=== PATIENT | male | born 1945 | race Caucasian/White ===

== ENCOUNTER 2020-06-07 09:21 | Emergency (ER) | payer MEDICARE, SELFPAY ==
--- NOTE | 2020-06-07 09:31 | ED.GENADULT ---
HPI - General Adult General Chief complaint: Ear Stated complaint: ear pain Time Seen by Provider: 06/07/20 09:36 Source: patient Mode of arrival: ambulatory Limitations: no limitations History of Present Illness HPI narrative: 75-year-old male patient [facility] with complaints of right ear pain. Patient states that this past he had some dental work done and states that there was an infection to his gums and teeth and therefore he was put on amoxicillin by the dentist. Patient states for the last couple of days he has had increased pain and irritation to the right ear. Denies any decrease in hearing. Patient states he has had ear infections to the area before. Denies any fevers, body aches or chills. Denies any sore throat, chest pain, shortness of breath or coughing. Related Data Home Medications Medication Instructions Recorded Confirmed lancets 28 gauge #25 each 11/20/19 tenofovir disoproxil fumarate 300 300 mg PO DAILY 11/20/19 06/07/20 mg tablet bisacodyl 5 mg tablet,delayed 5 mg PO ONCE PRN 11/27/19 06/07/20 release carbamazepine 200 mg tablet 200 mg PO TID tablet 11/27/19 06/07/20 ibuprofen 200 mg tablet 200 mg PO Q6H PRN 11/27/19 06/07/20 metformin 500 mg tablet,extended 1,000 mg PO BID tablet 11/27/19 06/07/20 release 24 hr multivitamin 1 tablet PO DAILY 11/27/19 06/07/20 amoxicillin 875 mg PO BID 06/07/20 06/07/20 Allergies Allergy/AdvReac Type Severity Reaction Status Date / Time No Known Allergies Allergy Unverified 06/07/20 09:31 Review of Systems Review of Systems: Narrative: CONSTITUTIONAL: Denies fever, chills, or sweats. EYES: Denies visual changes, redness, or discharge. ENT: Denies rhinorrhea, congestion, sore throat, positive right otalgia. CARDIOVASCULAR: Denies chest pain, palpitations, or edema. RESPIRATORY: Denies cough or dyspnea. GASTROINTESTINAL: Denies abdominal pain, nausea, vomiting, or diarrhea. GENITOURINARY: Denies dysuria or hematuria. SKIN: Denies rash or itching. MUSCULOSKELETAL: Denies back pain, joint pain, or myalgia. NEUROLOGIC: Denies headache, numbness, or weakness. PSYCHIATRIC: Denies anxiety or depression. [facility] Past Medical History Medical History BPH w/o urinary obs/LUTS Chronic constipation Chronic hepatitis B Cirrhosis of liver due to hepatitis B Dyslipidemia Edema of both legs Essential (primary) hypertension History of gynecomastia benign 03/2007 History of kidney stones Localized swelling, mass and lump, upper limb, bilateral Lumbar spondylosis Multiple lipomas MYRANDA (obstructive sleep apnea) Thrombocytopenia Trigeminal neuralgia of left side of face Type 2 diabetes mellitus without complication, without long-term current use of insulin Surgical History Surgical History History of back surgery 1995 History of hernia repair 1950 History of lumbosacral spine surgery 03/05/2018 History of transjugular intrahepatic portosystemic shunt 2014 Hx of transurethral resection of prostate 2019 Family History Family History Mother Hypertension Sibling Family history of malignant neoplasm of esophagus Other Family history of cardiovascular disease Family history of kidney disease Social History Social History Smoking status: Never smoker Second hand tobacco smoke exposure: No Additional smoking assessment comments: cigarettes smoke exposure as a child from father Alcohol intake: current Substance use: never Substance use type: does not use Comments At the time of my signature I agree with nursing past medical history, surgical, social, and family history. There is no relevant family history pertinent to the presenting complaint. Exam Narrative: Exam Narrative: GENERAL: Well-
[2020-06-07 09:34] VITALS: BP 125/71; PULSE 58; RESP 18; TEMP 36.2; O2SAT 99
== END 2020-06-07 09:55 | disposition home or self-care (01) ==
PROVIDERS: Emergency Provider Nurse Practitioner Family; PCP Family Medicine
DX: B36.9 Superficial mycosis, unspecified (principal); H62.41 Otitis externa in other diseases classified elsewhere, right ear; N40.0 Benign prostatic hyperplasia without lower urinary tract symptoms; E78.5 Hyperlipidemia, unspecified; I10 Essential (primary) hypertension; G47.33 Obstructive sleep apnea (adult) (pediatric); D69.6 Thrombocytopenia, unspecified; G50.0 Trigeminal neuralgia; E11.9 Type 2 diabetes mellitus without complications; K74.60 Unspecified cirrhosis of liver
CPT/HCPCS: 99213; G0463

== ENCOUNTER → 2020-10-20 10:24 | Outpatient (CLI) | payer MEDICARE, SELFPAY ==
--- NOTE | ~2020-10-20 | MR_ITS ---
EXAMINATION: MR humerus RT wo con DATE: 10/20/2020 11:39 INDICATION: Right upper arm pain. TECHNIQUE: Magnetic resonance imaging (MRI) of the right humerus was performed without intravenous co ntrast. Sequences included axial and sagittal T1-weighted FSE and STIR FSE and coronal STIR FSE. COMPARISON: None. FINDINGS: Bone alignment is normal. There is subcortical bone marrow edema-like signal intensity in d iaphysis of right humerus. There is mild osteoarthritis of glenohumeral joint and severe osteoarthrit is of the acromioclavicular joint. The rotator cuff is not well evaluated. There is a skin marker sup erficial to the biceps muscle. There is mild edema in the biceps muscle at the proximal myotendinous junction, consistent with strain. The proximal portion of the proximal biceps tendon and distal porti on of the distal biceps tendon are not included. IMPRESSION: 1. Mild right biceps muscle strain (grade 1). 2. Subcortical bone marrow edema-like signal intensity in right humeral diaphysis, consistent with st ress reaction. Reviewed, dictated and finalized at location A. HAND IMPRESSION: 1. Mild right biceps muscle strain (grade 1). 2. Subcortical bone marrow edema-like signal intensity in right humeral diaphys is, consistent with stress reaction.
== END ==
PROVIDERS: PCP Family Medicine; Visit Provider Nurse Practitioner
DX: S46.211A Strain of muscle, fascia and tendon of other parts of biceps, right arm, initial encounter (principal); X58.XXXA Exposure to other specified factors, initial encounter
CPT/HCPCS: 73218

== ENCOUNTER 2021-05-27 09:16 | Outpatient (CLI) | payer MEDICARE, SELFPAY ==
--- NOTE | ~2021-05-27 | CT_ITS ---
EXAMINATION: CT abdomen pelvis wo/w con DATE: 05/27/2021 09:53 INDICATION: Gross hematuria TECHNIQUE: Computed tomography (CT) of the abdomen and pelvis was performed without and subsequently with 130 cc Omnipaque 350 intravenous contrast. Automated exposure control and iterative reconstructi on technique were employed. Exam dose: 917.56 mGy-cm total exam DLP. COMPARISON: 03/09/2017 CT abdomen and pelvis without and subsequently with IV contrast material FINDINGS: There is minimal discoid atelectasis or scarring at the lung bases. Calcified left lower lo be pulmonary granuloma. Normal heart size. No pericardial or pleural effusion. TIPS catheter is noted. Surface nodularity of the liver consistent with cirrhosis. Occasional hepatic cysts. No bile duct or pancreatic duct dilatation. No pancreatic mass lesion or calcification. Spleen is upper limits of normal at 12.9 cm maximal vertical length. Normal morphology of the adrenal glands. There are couple of left renal cysts, the larger measuring 7.5 mm. No right renal mass lesion. A couple of pinpoint nonobstructing right renal calculi are noted. 3.5 mm lower pole nonobstructing left renal calculus. No ureteral calculus or hydroureteronephrosis. There is prominent prostate enlargement impressing the base and urinary bladder, and minimal prostate calcification. There is moderate diffuse bladder wall thickening which may be due to bladder outlet obstruction. There is probable transurethral resection of the prostate. There is calcification of the abdominal aorta but no aneurysm. No intraperitoneal or retroperitoneal or pelvic mass lesion or adenopathy or ascites. There are nondilated fluid containing small bowel segments. There is thickening of the wall of the di stal ileum which might represent infectious or inflammatory enteritis. No bowel obstruction, pneumato sis or intraperitoneal free air. Diffuse osteopenia. Severe degenerative disc disease at L2-3 IMPRESSION: Prostate enlargement Minimal nonobstructive right nephrolithiasis, 3.5 mm lower pole left renal nonobstructing calculus No ureteral calculus or hydroureteronephrosis Cirrhosis, TIPS catheter, borderline splenomegaly Occasional hepatic cysts Small left renal cyst Reviewed, dictated and finalized at [facility]. Reviewed, dictated and finalized at location A. IMPRESSION: Prostate enlargement Minimal nonobstructive right nephrolithiasis, 3.5 mm lower pole left renal nono bstructing calculus No ureteral calculus or hydroureteronephrosis Cirrhosis, TIPS catheter, borderline splenomegaly Occasional hepatic cysts Small left renal cyst
--- NOTE | ~2021-05-27 | XR_ITS ---
EXAMINATION: XR abdomen/kub 1V INDICATION: Gross hematuria TECHNIQUE: Supine views of the abdomen were obtained on 2 radiographs. COMPARISON: CT from today and radiographs dated 02/08/2017 FINDINGS: There is a 4 mm stone of the left kidney lower pole. No stones project in the right kidney or in the expected location of the ureters or urinary bladder. There are phleboliths of the pelvis. A TIPS there is lumbar dextroscoliosis. Is noted. Cholecystectomy clips are present in the right upper quadrant. There is a bone island of the right iliac wing. Moderate hip osteoarthritis is noted. IMPRESSION: 1. Left nephrolithiasis. Reviewed, dictated and finalized at location B. IMPRESSION: 1. Left nephrolithiasis.
[2021-05-27 09:38] LABS: Estimated Glomerular Filt Rate > 60
== END 2021-05-27 09:17 | disposition home or self-care (01) ==
PROVIDERS: PCP Family Medicine; Visit Provider Urology
DX: R31.0 Gross hematuria (principal); N20.0 Calculus of kidney; N40.0 Benign prostatic hyperplasia without lower urinary tract symptoms; N28.1 Cyst of kidney, acquired; K76.89 Other specified diseases of liver
CPT/HCPCS: 74018; 74178; Q9967

== ENCOUNTER 2022-01-28 19:08 | Emergency (ER) | payer MEDICARE, SELFPAY ==
[2022-01-28] VITALS (8 sets, daily range): BP systolic 120–139; BP diastolic 57–66; PULSE 76–86; RESP 16–21; TEMP 38.8; O2SAT 97–100
--- NOTE | ~2022-01-28 | CT_ITS ---
EXAMINATION: CTA brain DATE: 01/28/2022 21:41 INDICATION: Dizziness. TECHNIQUE: Computed tomographic angiography (CTA) of the head was performed without and with 100 mL O mnipaque-350 intravenous contrast. Automated exposure control and iterative reconstruction technique were employed. The dose-length product was 1812.31 mGy-cm. Maximum intensity projection 3D reconstru ctions were created. Volume-rendered 3D reconstructions of the intracranial arteries were created by the technologist on a separate workstation. COMPARISON: Head CT 05/22/2015 FINDINGS: There is no intracranial hemorrhage, acute infarction, or abnormal intracranial mass lesion . There is a developmental venous anomaly in left frontal lobe. There are scattered areas of low atte nuation in the cerebral white matter, which is within normal limits for the patient's age. The ventri cles are normal in size. There is mild mucosal thickening in the paranasal sinuses. The orbits are no rmal. The mastoid air cells are normal. The vertebral arteries are codominant. There is no significan t stenosis of basilar artery or the posterior cerebral arteries. There is no significant stenosis of the intracranial internal carotid arteries or anterior or middle cerebral arteries. Anterior communic ating artery is normal. The posterior communicating arteries are normal. There is no aneurysm. IMPRESSION: 1. Normal aging brain. 2. No aneurysm or significant intracranial arterial stenosis. Reviewed, dictated and finalized at location A.
--- NOTE | 2022-01-28 19:24 | ECG_ITS ---
Measurements Intervals [place] Rate: 74 P: 49 MN: 205 QRS: -5 QRSD: 98 T: 41 QT: 354 QTc: 395 Interpretive Statements SINUS RHYTHM INFERIOR MYOCARDIAL INFARCTION , PROBABLY OLD [40+ ms Q WAVE AND/OR ST/T ABNORMALITY IN II/aVF] ABNORMAL ECG COMPARED TO ECG 03/25/2019 16:08:08 SINUS RHYTHM NOW PRESENT MYOCARDIAL INFARCT FINDING NOW PRESENT Electronically Signed On 01-29-2022 11:43:50 CDT by Christian Burgos M.D.
[2022-01-28 19:25] LABS: Glucose Point of Care 192 mg/dl (65-105)
--- NOTE | 2022-01-28 19:59 | ED.DIZZY ---
HPI - Dizziness General Chief Complaint: Dizziness Stated Complaint: dizzy spells, left ear pain, chills Time Seen by Provider: 01/28/22 19:40 Source: patient and family Mode of arrival: ambulatory Limitations: no limitations History of Present Illness HPI Narrative: 77-year-old male presents to emergency room accompanied by his . Patient comes in secondary to dizziness. States it began yesterday. He states is not necessarily a spinning type sensation but is just having trouble with his balance. He states he even had trouble putting his legs into the pants legs and getting his pants off. He does have a history of trigeminal neuralgia and underwent radiation treatment for that. He takes Neurontin. He states he has had some issues with his ears in the past but nothing recently. He denies any focal weakness to his arms or legs. No visual problems are noted. He had no associated nausea vomiting. Denies any head injuries. He states when he walks he feels like he is falling and has to hold onto something in order to ambulate. Onset of this was yesterday. Related Data Home Medications Medication Instructions Recorded Confirmed lancets 28 gauge #25 each 11/20/19 01/10/22 tenofovir disoproxil fumarate 300 300 mg PO DAILY 11/20/19 01/10/22 mg tablet multivitamin 1 tablet PO DAILY 11/27/19 01/10/22 polyethylene glycol 3350 17 17 g PO DAILY PRN 05/25/21 01/10/22 gram/dose oral powder gabapentin 400 mg capsule 400 mg PO QID cap 01/10/22 01/10/22 Allergies Allergy/AdvReac Type Severity Reaction Status Date / Time No Known Allergies Allergy Verified 01/28/22 19:17 Review of Systems Review of Systems: CONSTITUTIONAL: Denies fever, chills, or sweats. EYES: Denies visual changes, redness, or discharge. ENT: Denies rhinorrhea, congestion, sore throat, or otalgia. CARDIOVASCULAR: Denies chest pain, palpitations, or edema. RESPIRATORY: Denies cough or dyspnea. GASTROINTESTINAL: Denies abdominal pain, nausea, vomiting, or diarrhea. GENITOURINARY: Denies dysuria or hematuria. SKIN: Denies rash or itching. MUSCULOSKELETAL: Denies back pain, joint pain, or myalgia. NEUROLOGIC: Denies headache, numbness, or weakness. Having dizziness and difficulty with coordination PSYCHIATRIC: Denies anxiety or depression. [facility] Past Medical History Medical History BPH w/o urinary obs/LUTS Chronic constipation Chronic hepatitis B Cirrhosis of liver due to hepatitis B Dyslipidemia Edema of both legs History of gynecomastia benign 03/2007 History of kidney stones Localized swelling, mass and lump, upper limb, bilateral Lumbar spondylosis Multiple lipomas MYRANDA (obstructive sleep apnea) Thrombocytopenia Trigeminal neuralgia of left side of face s/p stereo tactic radiation surgery Type 2 diabetes mellitus without complication, without long-term current use of insulin Surgical History Surgical History History of back surgery 1995 History of hernia repair 1950 History of lumbosacral spine surgery 03/05/2018 History of transjugular intrahepatic portosystemic shunt 2015 Hx of transurethral resection of prostate 2019 Family History Family History Mother Hypertension Sibling Family history of malignant neoplasm of esophagus Other Family history of cardiovascular disease Family history of kidney disease Social History Social History Second hand tobacco smoke exposure: No Additional smoking assessment comments: cigarettes smoke exposure as a child from father Alcohol intake: current Alcohol use details: consumes 2 glasses of wine twice a week Substance use: never Substance use type: does not use Exam Narrative: APPEARANCE: Well appearing, no pain or distress, well-nourished. Head norm
[2022-01-28 20:28] LABS: Hematocrit 38.8 % (42.0-52.0); Immature Platelet Fraction Pct 2.8 % (0.9-11.2); Mean Corpuscular HGB Conc 33.5 g/dl (32-36); Mean Corpuscular Hemoglobin 30.7 pg (26-34); Mean Corpuscular Volume 91.7 fl (80-100); Mean Platelet Volume 10.1 fl (7.4-10.4); Platelet Count Result 112 k/mm3 (150-375); Red Blood Count 4.23 M/mm3 (4.6-6.20); Red Cell Distribution Width 13.6 % (11.5-14.5); White Blood Count 8.9 K/mm3 (4.5-10.0)
[2022-01-28 20:35] LABS: Alanine Aminotransferase 25 U/L (4-50); Albumin Level 3.6 g/dL (3.5-5.1); Alkaline Phosphatase 87 U/L (38-126); Anion Gap 6 mmol/L (8-16); Aspartate Amino Transferase 46 U/L (17-59); Bilirubin,Total 1.3 mg/dL (0.2-1.3); Blood Urea Nitrogen 16 mg/dL (9-20); Calcium 8.8 mg/dL (8.4-10.2); Carbon Dioxide 25 mmol/L (22-30); Chloride 103 mmol/L (98-107); Estimated CRCL calculation 64 ml/min; Estimated Glomerular Filt Rate > 60; Glucose 167 mg/dL (65-110); Potassium 4.3 mmol/L (3.4-5.0); Sodium 134 mmol/L (137-145)
[2022-01-28 20:36] LABS: INR 1.2
[2022-01-28 20:47] LABS: Troponin I < 0.012 ng/mL (0.000-0.034)
[2022-01-28 20:58] LABS: Band Neutrophils Percent 8 % (0-6); Lymphocytes Absolute Manual 0.26 K/mm3 (1.1-4.5); Monocytes Absolute Manual 0.08 K/mm3 (0.1-0.90); Monocytes Percent Manual 1 % (3-9); Neutrophils Absolute Manual 8.54 K/mm3 (1.3-6.7); Neutrophils Percent Manual 88 % (46-73); Total Cells Counted 100
[2022-01-28 20:59] LABS: Platelet Estimate Decreased (Adequate)
[2022-01-28] MEDS: MECLIZINE HCL 25 MG TABLET PO (23:01)
== END 2022-01-28 23:30 | disposition home or self-care (01) ==
PROVIDERS: Emergency Provider Emergency Medicine; PCP Family Medicine
DX: R42 Dizziness and giddiness (principal); N40.0 Benign prostatic hyperplasia without lower urinary tract symptoms; B18.1 Chronic viral hepatitis B without delta-agent; K74.60 Unspecified cirrhosis of liver; E78.5 Hyperlipidemia, unspecified; G47.33 Obstructive sleep apnea (adult) (pediatric); E11.9 Type 2 diabetes mellitus without complications; Z87.442 Personal history of urinary calculi; R94.31 Abnormal electrocardiogram [ECG] [EKG]; Z79.84 Long term (current) use of oral hypoglycemic drugs
CPT/HCPCS: 36415; 70496; 80053; 82948; 84484; 85025; 85055; 85610; 85730; 93005; 99283; A9270; Q9967

== ENCOUNTER 2022-07-18 10:32 | Outpatient (CLI) | payer MEDICARE, SELFPAY | END 2022-07-18 10:33 | disposition home or self-care (01) | PROVIDERS: PCP Family Medicine; Visit Provider Family Medicine | DX: E11.9 Type 2 diabetes mellitus without complications (principal); E78.5 Hyperlipidemia, unspecified; Z79.899 Other long term (current) drug therapy; E53.8 Deficiency of other specified B group vitamins; Z12.5 Encounter for screening for malignant neoplasm of prostate; G47.33 Obstructive sleep apnea (adult) (pediatric); G50.0 Trigeminal neuralgia; Z13.29 Encounter for screening for other suspected endocrine disorder; E55.9 Vitamin D deficiency, unspecified; B18.1 Chronic viral hepatitis B without delta-agent; K74.60 Unspecified cirrhosis of liver; B19.10 Unspecified viral hepatitis B without hepatic coma | CPT/HCPCS: 99199; 36415 ==

== ENCOUNTER 2022-09-06 01:23 | Day surgery (SDC) | payer MEDICARE, SELFPAY ==
[2022-08-22 11:57] VITALS: BMI 25.8
[2022-09-06 08:18] VITALS: BP 133/70; PULSE 87; RESP 20; TEMP 36.4; O2SAT 96; BMI 26.5
[2022-09-06 08:33] LABS: Glucose Point of Care 164 mg/dl (65-105)
[2022-09-06] MEDS: LACTATED RINGERS 1,000 ML 150 ML IV CONT (08:33)
--- NOTE | 2022-09-06 09:05 | WPDANESEPPF ---
Anes - Initial Pre Proc Eval Procedure: Operation Date: 09/06/22 09:30 Proposed Procedures p Screening Colonoscopy - Kane Barrera MD Date/Time: 09/06/22 09:05 Surgeon: Kane Barrera MD Pre Op Diagnosis: Hx of Colon Polyps Patient Data Age: 77 Gender: M Height: 1.8 m Weight: 86.3 kg Last Vital Signs Temp 97.5 F L 09/06/22 08:18 Pulse 87 09/06/22 08:18 Resp 20 09/06/22 08:18 BP 133/70 09/06/22 08:18 Pulse Ox 96 09/06/22 08:18 O2 Del Method Room Air 09/06/22 08:18 Allergies Allergy/AdvReac Type Severity Reaction Status Date / Time No Known Allergies Allergy Verified 09/06/22 08:14 Home Medications Medication Instructions Recorded Confirmed Type lancets 28 gauge #25 ea 11/20/19 08/17/22 History tenofovir disoproxil fumarate 300 300 mg PO DAILY 11/20/19 08/22/22 History mg tablet (Viread) multivitamin 1 tablet PO DAILY 11/27/19 08/22/22 History polyethylene glycol 3350 17 17 g PO DAILY PRN Constipation 05/25/21 08/22/22 History gram/dose oral powder (Miralax) blood sugar diagnostic #100 ea 12/20/21 08/17/22 Rx glipizide 2.5 mg tablet, extended 2.5 mg PO DAILY #90 tabs 12/20/21 08/22/22 Rx release 24 hr gabapentin 400 mg capsule 400 mg PO QID 01/10/22 08/22/22 History metformin 500 mg tablet,extended 1,000 mg PO BID #360 tabs 01/14/22 08/22/22 Rx release 24 hr atorvastatin 20 mg tablet 20 mg PO QHS #90 tabs 06/08/22 08/22/22 Rx baclofen 10 mg tablet 10 mg PO BID 08/17/22 08/22/22 History lancets 33 gauge (OneTouch Delica See Rx Instructions miscellaneous 08/17/22 08/22/22 Rx Lancets) DAILY #100 ea mupirocin 2 % topical ointment 1 applic topical BID #22 grams 11/02/22 11/07/22 Rx oxcarbazepine 150 mg tablet 150 mg PO BID 08/17/22 08/22/22 History Laboratory Tests 09/06/22 08:30 POC Capillary Glucose 164 mg/dl H mg/dl (65-105) Patient hx anesthesia problems: none Family hx anesthesia problems: none Results Review: All pre-operative results and documents have been reviewed as part of the pre-operative evaluation. [facility] Past Medical History Medical History BPH w/o urinary obs/LUTS Chronic constipation Chronic hepatitis B Cirrhosis of liver due to hepatitis B Dyslipidemia Edema of both legs History of colon polyps History of gynecomastia benign 03/2007 History of kidney stones Localized swelling, mass and lump, upper limb, bilateral Lumbar spondylosis Multiple lipomas MYRANDA (obstructive sleep apnea) Thrombocytopenia Trigeminal neuralgia of left side of face s/p stereo tactic radiation surgery Type 2 diabetes mellitus without complication, without long-term current use of insulin Surgical History Surgical History History of back surgery 1995 History of hernia repair 1950 History of lumbosacral spine surgery 03/05/2018 History of transjugular intrahepatic portosystemic shunt 2015 Hx of transurethral resection of prostate 2019 Family History Family History Mother Hypertension Sibling Family history of malignant neoplasm of esophagus Other Family history of cardiovascular disease Family history of kidney disease Social History Social History Smoking status: Never smoker Second hand tobacco smoke exposure: No Additional smoking assessment comments: cigarettes smoke exposure as a child from father Alcohol intake: current Drinks per week: 3 Alcohol use details: WINE Substance use: never Substance use type: does not use Lack of Transportation: No Lack of Food: Never True Current Housing: I Have Housing Concerned About Future Housing: No Difficulty Paying Gas/Electric Bills: No Difficulty Paying for Meds: No Currently Unemployed: No Educati
--- NOTE | 2022-09-06 09:21 | PM.HPGS ---
History of Present Illness History of Present Illness Consent: Risks, benefits, and alternatives have been discussed and questions answered. Patient agrees to proceed with procedure. Chief complaint: Hx of Colon Polyps Narrative: Lei Rayo is a 77 year old male with history of polyps with last colonscopy 5 years ago Review of Systems Constitutional: Constitutional: Denies headache(s) and Denies weakness Eyes: Eyes: Denies blurry vision ENT: Reports Normal hearing present, Denies headache(s) and Denies neck pain Cardiovascular: Cardiovascular: Denies chest pain and Denies dyspnea Respiratory: Respiratory: Denies dyspnea Gastrointestinal: Gastrointestinal: Reports no additional gastrointestinal complaints Genitourinary: Genitourinary: Denies dysuria Musculoskeletal: Musculoskeletal: Denies neck pain Integumentary/Breasts: Skin/Breast: Denies dry skin Neurologic: Reports Normal hearing present, Denies headache(s) and Denies weakness Psychiatric: Psychiatric: Denies anxiety Endocrine: Endocrine: Denies change in body appearance Hematologic/Lymphatic: Hematologic/Lymphatic: Denies easy bleeding Allergic/Immunologic: Allergic/Immunologic: Denies urticaria PMFSH Past Medical History Medical History (Updated 09/06/22 @ 09:21 by Kane Barrera MD) BPH w/o urinary obs/LUTS Chronic constipation Chronic hepatitis B Cirrhosis of liver due to hepatitis B Dyslipidemia Edema of both legs History of colon polyps History of gynecomastia benign 03/2007 History of kidney stones Localized swelling, mass and lump, upper limb, bilateral Lumbar spondylosis Multiple lipomas MYRANDA (obstructive sleep apnea) Thrombocytopenia Trigeminal neuralgia of left side of face s/p stereo tactic radiation surgery Type 2 diabetes mellitus without complication, without long-term current use of insulin Surgical History Surgical History History of back surgery 1995 History of hernia repair 1950 History of lumbosacral spine surgery 03/05/2018 History of transjugular intrahepatic portosystemic shunt 2014 Hx of transurethral resection of prostate 2019 Family History Family History Mother Hypertension Sibling Family history of malignant neoplasm of esophagus Other Family history of cardiovascular disease Family history of kidney disease Social History Social History Smoking status: Never smoker Second hand tobacco smoke exposure: No Additional smoking assessment comments: cigarettes smoke exposure as a child from father Alcohol intake: current Drinks per week: 3 Alcohol use details: WINE Substance use: never Substance use type: does not use Lack of Transportation: No Lack of Food: Never True Current Housing: I Have Housing Concerned About Future Housing: No Difficulty Paying Gas/Electric Bills: No Difficulty Paying for Meds: No Currently Unemployed: No Education: Bachelor's Degree Difficulty w/ Childcare or Family Care: No Living arrangements: with family Spiritual care concerns: No Meds Home Medications and Allergies Home Medications Medication Instructions Recorded Confirmed Type lancets 28 gauge #25 ea 11/20/19 08/17/22 History tenofovir disoproxil fumarate 300 300 mg PO DAILY 11/20/19 08/22/22 History mg tablet (Viread) multivitamin 1 tablet PO DAILY 11/27/19 08/22/22 History polyethylene glycol 3350 17 17 g PO DAILY PRN Constipation 05/25/21 08/22/22 History gram/dose oral powder (Miralax) blood sugar diagnostic #100 ea 12/20/21 08/17/22 Rx glipizide 2.5 mg tablet, extended 2.5 mg PO DAILY #90 tabs 12/20/21 08/22/22 Rx release 24 hr gabapentin 400 mg capsule 400 mg PO QID 01/10/22 08/22/22 History metformin 500 mg tablet,extended 1,000 mg PO BID #360 tabs 01/14/22 11
[2022-09-06 09:52] VITALS: BP 122/71; PULSE 77; RESP 18; O2SAT 100
[2022-09-06 10:02] VITALS: BP 126/79; PULSE 64; RESP 15; O2SAT 100
[2022-09-06 10:12] VITALS: BP 127/75; PULSE 72; RESP 16; O2SAT 100
== END 2022-09-06 10:18 | disposition home or self-care (01) ==
PROVIDERS: PCP Family Medicine; Visit Provider Internal Medicine Gastroenterology
PROC: 0DJD8ZZ Inspection of Lower Intestinal Tract, Via Natural or Artificial Opening Endoscopic (ICD-10-PCS; CPT 45378; principal; 2022-09-06 09:30)
DX: Z12.11 Encounter for screening for malignant neoplasm of colon (principal); D12.2 Benign neoplasm of ascending colon; K51.40 Inflammatory polyps of colon without complications; K64.8 Other hemorrhoids; K74.60 Unspecified cirrhosis of liver; B18.1 Chronic viral hepatitis B without delta-agent; E78.5 Hyperlipidemia, unspecified; G47.33 Obstructive sleep apnea (adult) (pediatric); E11.9 Type 2 diabetes mellitus without complications; K59.09 Other constipation; N40.0 Benign prostatic hyperplasia without lower urinary tract symptoms; M47.816 Spondylosis without myelopathy or radiculopathy, lumbar region; Z79.84 Long term (current) use of oral hypoglycemic drugs
CPT/HCPCS: 45385; 82948; 88305; J2704; J7120

== ENCOUNTER 2023-01-16 09:49 | Outpatient (CLI) | payer MEDICARE, SELFPAY ==
[2023-01-16 12:41] LABS: Alanine Aminotransferase 27 U/L (6-50); Albumin Level 3.4 g/dL (3.5-5.1); Alkaline Phosphatase 90 U/L (38-126); Anion Gap 4 mmol/L (8-16); Aspartate Amino Transferase 36 U/L (17-59); Bilirubin,Total 0.8 mg/dL (0.2-1.3); Blood Urea Nitrogen 13 mg/dL (9-20); Calcium 8.7 mg/dL (8.4-10.2); Carbon Dioxide 30 mmol/L (22-30); Chloride 103 mmol/L (98-107); Estimated Glomerular Filt Rate > 60; Glucose 277 mg/dL (65-110); Potassium 4.3 mmol/L (3.4-5.0); Sodium 137 mmol/L (137-145)
[2023-01-16 13:50] LABS: Hemoglobin A1C 7.9 % (<5.7)
[2023-01-16 17:27] LABS: Eosinophils Absolute Auto 0.1 K/mm3 (0-0.3); Eosinophils Percent Auto 2.8 % (0-4.4); Hematocrit 40.8 % (42.0-52.0); Hemoglobin 13.3 g/dL (14.0-18.0); Immature Granulocyte Absolute 0.01 K/mm3 (0.00-0.031); Immature Granulocyte Percent A 0.3 % (0-0.5); Lymphocytes Absolute Auto 0.93 K/mm3 (0.9-3.2); Lymphocytes Percent Auto 32.5 % (18.3-44.2); Mean Corpuscular HGB Conc 32.6 g/dl (32-36); Mean Corpuscular Hemoglobin 30.9 pg (26-34); Mean Corpuscular Volume 94.9 fl (80-100); Mean Platelet Volume 10.6 fl (7.4-10.4); Monocytes Absolute Auto 0.3 K/mm3 (0.1-0.6); Monocytes Percent Auto 10.5 % (2.6-8.5); Neutrophils Absolute Auto 1.5 K/mm3 (1.3-6.7); Neutrophils Percent Auto 52.9 % (45.5-73.1); Platelet Count Result 132 k/mm3 (150-375); White Blood Count 2.9 K/mm3 (4.5-10.0)
== END 2023-01-16 09:50 | disposition home or self-care (01) ==
LOC: ANHGOSHLAB 09:51
PROVIDERS: PCP Family Medicine; Visit Provider Family Medicine
DX: E11.9 Type 2 diabetes mellitus without complications (principal); E78.5 Hyperlipidemia, unspecified; G50.0 Trigeminal neuralgia; B18.1 Chronic viral hepatitis B without delta-agent; D72.819 Decreased white blood cell count, unspecified
CPT/HCPCS: 36415; 80053; 83036; 85025

== ENCOUNTER 2023-07-26 10:50 | Outpatient (CLI) | payer MEDICARE, SELFPAY ==
[2023-07-26 18:39] LABS: Basophils Percent Auto 0.8 % (0.2-1.2); Eosinophils Absolute Auto 0.2 K/mm3 (0-0.3); Eosinophils Percent Auto 4.6 % (0-4.4); Hematocrit 41.3 % (42.0-52.0); Hemoglobin 13.5 g/dL (14.0-18.0); Immature Granulocyte Absolute 0.01 K/mm3 (0.00-0.031); Immature Granulocyte Percent A 0.3 % (0-0.5); Lymphocytes Absolute Auto 0.76 K/mm3 (0.9-3.2); Lymphocytes Percent Auto 20.8 % (18.3-44.2); Mean Corpuscular HGB Conc 32.7 g/dl (32-36); Mean Corpuscular Hemoglobin 30.5 pg (26-34); Mean Corpuscular Volume 93.4 fl (80-100); Mean Platelet Volume 10.6 fl (7.4-10.4); Monocytes Absolute Auto 0.4 K/mm3 (0.1-0.6); Monocytes Percent Auto 10.9 % (2.6-8.5); Neutrophils Absolute Auto 2.3 K/mm3 (1.3-6.7); Neutrophils Percent Auto 62.6 % (45.5-73.1); Platelet Count Result 142 k/mm3 (150-375); Red Blood Count 4.42 M/mm3 (4.6-6.20); Red Cell Distribution Width 13.4 % (11.5-14.5); White Blood Count 3.7 K/mm3 (4.5-10.0)
[2023-07-26 19:15] LABS: Alanine Aminotransferase 24 U/L (6-50); Albumin Level 3.8 g/dL (3.5-5.1); Alkaline Phosphatase 100 U/L (38-126); Anion Gap 4 mmol/L (8-16); Aspartate Amino Transferase 43 U/L (17-59); Bilirubin,Total 1.1 mg/dL (0.2-1.3); Blood Urea Nitrogen 14 mg/dL (9-20); Calcium 9.2 mg/dL (8.4-10.2); Carbon Dioxide 30 mmol/L (22-30); Chloride 103 mmol/L (98-107); Cholesterol 146 mg/dL (0-200); Estimated Glomerular Filt Rate > 60; Glucose 148 mg/dL (65-110); HDL Direct 46 mg/dL; Potassium 4.4 mmol/L (3.4-5.0); Sodium 137 mmol/L (137-145); Triglycerides 80 mg/dL (<150)
[2023-07-26 19:26] LABS: LDL Cholesterol Direct 74 mg/dL
[2023-07-26 19:45] LABS: Prostate Specific Antigen 1.1 ng/mL (< OR = 4.0)
[2023-07-26 20:14] LABS: Vitamin D 25 Hydroxy 60.1 ng/mL
[2023-07-26 20:38] LABS: MALB Creatinine Ratio 7.8 mg/g (0-30); Microalbumin Urine Random 7.3 mg/L (0-16.7)
[2023-07-26 21:03] LABS: Hemoglobin A1C 6.8 % (<5.7)
== END 2023-07-26 10:51 | disposition home or self-care (01) ==
LOC: ANHGOSHLAB 10:51
PROVIDERS: PCP Family Medicine; Visit Provider Family Medicine
DX: I10 Essential (primary) hypertension (principal); E78.5 Hyperlipidemia, unspecified; E53.8 Deficiency of other specified B group vitamins; E55.9 Vitamin D deficiency, unspecified; E11.9 Type 2 diabetes mellitus without complications; Z12.5 Encounter for screening for malignant neoplasm of prostate; D72.819 Decreased white blood cell count, unspecified; Z00.00 Encounter for general adult medical examination without abnormal findings; B18.1 Chronic viral hepatitis B without delta-agent; B19.10 Unspecified viral hepatitis B without hepatic coma; G50.0 Trigeminal neuralgia; K59.09 Other constipation; K74.60 Unspecified cirrhosis of liver
CPT/HCPCS: 36415; 80053; 80061; 82043; 82306; 82607; 83036; 84153; 84443; 85025; G0103

== ENCOUNTER 2024-01-22 10:48 | Outpatient (CLI) | payer MEDICARE, SELFPAY ==
[2024-01-22 20:39] LABS: Basophils Percent Auto 0.9 % (0.2-1.2); Eosinophils Absolute Auto 0.2 K/mm3 (0-0.3); Eosinophils Percent Auto 4.7 % (0-4.4); Hematocrit 40.7 % (42.0-52.0); Hemoglobin 13.4 g/dL (14.0-18.0); Lymphocytes Absolute Auto 0.96 K/mm3 (0.9-3.2); Lymphocytes Percent Auto 28.3 % (18.3-44.2); Mean Corpuscular HGB Conc 32.9 g/dl (32-36); Mean Corpuscular Hemoglobin 30.7 pg (26-34); Mean Corpuscular Volume 93.1 fl (80-100); Monocytes Absolute Auto 0.3 K/mm3 (0.1-0.6); Neutrophils Absolute Auto 1.9 K/mm3 (1.3-6.7); Neutrophils Percent Auto 56.1 % (45.5-73.1); Platelet Count Result 141 k/mm3 (150-375); Red Blood Count 4.37 M/mm3 (4.6-6.20); Red Cell Distribution Width 13.8 % (11.5-14.5); White Blood Count 3.4 K/mm3 (4.5-10.0)
[2024-01-22 20:58] LABS: Alanine Aminotransferase 17 U/L (6-50); Albumin Level 3.9 g/dL (3.5-5.1); Alkaline Phosphatase 100 U/L (38-126); Anion Gap 4 mmol/L (4-12); Aspartate Amino Transferase 36 U/L (17-59); Blood Urea Nitrogen 13 mg/dL (9-20); Calcium 9.4 mg/dL (8.4-10.2); Carbon Dioxide 27 mmol/L (22-30); Chloride 106 mmol/L (98-107); Estimated Glomerular Filt Rate > 60; Glucose 145 mg/dL (65-110); Potassium 4.5 mmol/L (3.4-5.0); Sodium 137 mmol/L (137-145)
[2024-01-22 22:58] LABS: Hemoglobin A1C 7.1 % (<5.7)
== END 2024-01-22 10:49 | disposition home or self-care (01) ==
LOC: ANHGOSHLAB 10:49
PROVIDERS: PCP Family Medicine; Visit Provider Family Medicine
DX: E11.9 Type 2 diabetes mellitus without complications (principal); I10 Essential (primary) hypertension; D72.819 Decreased white blood cell count, unspecified
CPT/HCPCS: 36415; 80053; 83036; 85025

== ENCOUNTER 2024-07-31 10:11 | Outpatient (CLI) | payer MEDICARE, SELFPAY ==
[2024-07-31 16:52] LABS: Alanine Aminotransferase 21 U/L (6-50); Alkaline Phosphatase 95 U/L (38-126); Anion Gap 7 mmol/L (4-12); Aspartate Amino Transferase 48 U/L (17-59); Basophils Percent Auto 0.9 % (0.2-1.2); Blood Urea Nitrogen 13 mg/dL (9-20); Calcium 9.3 mg/dL (8.4-10.2); Carbon Dioxide 28 mmol/L (22-30); Chloride 102 mmol/L (98-107); Cholesterol 136 mg/dL (0-200); Eosinophils Absolute Auto 0.1 K/mm3 (0-0.3); Eosinophils Percent Auto 4.1 % (0-4.4); Estimated Glomerular Filt Rate > 60; Glucose 144 mg/dL (65-110); HDL Direct 44 mg/dL; Hematocrit 41.5 % (42.0-52.0); Hemoglobin 13.7 g/dL (14.0-18.0); Immature Granulocyte Absolute 0.01 K/mm3 (0.00-0.031); Immature Granulocyte Percent A 0.3 % (0-0.5); Lymphocytes Absolute Auto 0.86 K/mm3 (0.9-3.2); Lymphocytes Percent Auto 25.4 % (18.3-44.2); Mean Corpuscular Hemoglobin 30.6 pg (26-34); Mean Corpuscular Volume 92.8 fl (80-100); Mean Platelet Volume 10.7 fl (7.4-10.4); Monocytes Absolute Auto 0.3 K/mm3 (0.1-0.6); Monocytes Percent Auto 8.3 % (2.6-8.5); Neutrophils Absolute Auto 2.1 K/mm3 (1.3-6.7); Platelet Count Result 139 k/mm3 (150-375); Potassium 4.7 mmol/L (3.4-5.0); Red Blood Count 4.47 M/mm3 (4.6-6.20); Red Cell Distribution Width 13.6 % (11.5-14.5); Sodium 137 mmol/L (137-145); Triglycerides 83 mg/dL (<150); White Blood Count 3.4 K/mm3 (4.5-10.0)
[2024-07-31 17:02] LABS: LDL Cholesterol Direct 60 mg/dL
[2024-07-31 17:07] LABS: Hemoglobin A1C 7.3 % (<5.7)
[2024-07-31 17:14] LABS: Vitamin D 25 Hydroxy 82.2 ng/mL
[2024-07-31 17:21] LABS: Prostate Specific Antigen 1.2 ng/mL (< OR = 4.0)
[2024-07-31 17:23] LABS: Creatinine Urine 150.3 mg/dL
== END 2024-07-31 10:12 | disposition home or self-care (01) ==
LOC: ANHGOSHLAB 10:12
PROVIDERS: PCP Family Medicine; Visit Provider Family Medicine
DX: I10 Essential (primary) hypertension (principal); E53.8 Deficiency of other specified B group vitamins; D72.819 Decreased white blood cell count, unspecified; E11.9 Type 2 diabetes mellitus without complications; E78.5 Hyperlipidemia, unspecified; E55.9 Vitamin D deficiency, unspecified; Z12.5 Encounter for screening for malignant neoplasm of prostate
CPT/HCPCS: 36415; 80053; 80061; 82043; 82306; 82607; 83036; 84153; 84443; 85025; G0103

== ENCOUNTER 2025-02-10 10:06 | Outpatient (CLI) | payer MEDICARE, SELFPAY ==
--- OUTSIDE RECORDS SUMMARY | 2025-02-10 11:24 | XMS_ITS | Clinical Summary ---
Author Organization [facility] [employer] Address [address] [facility] [place] [address] Care Team Providers Care Location Analyst Name Role Phone Cesario Wilkinson MD Primary Care Provider Mitchel Gustafson MD Unavailable [phone] Cale Walden MD Unavailable [phone] Source Comments [facility] [employer],non-owned Affiliates and Associated Physician Practices is amultiple site organization consisting of ambulatory clinics and hospital sitesin [place], [place], [place] and [place]. This disclosure is being madepursuant to the Care Everywhere program and may not contain all information available regarding this patient. Last updated 18.[facility] [employer] Allergies No known active allergies Medications * Be aware that medications may not be up to date on this document. Alwaysverify current medications with the patient. Multiple Vitamin (DAILY VITAMIN PO) Take by mouth once daily Active metFORMIN ER 24hr (GLUCOPHAGE XR) 500 MG tablet Take 2 (two) tablets by mouth 2 times daily 9 Active atorvastatin (LIPITOR) 20 MG tablet Take 1 (one) tablet by mouth once daily 0 Active ONETOUCH ULTRA test strip USE TO CHECK BLOOD SUGAR EVERY DAY DIRECTED 0 Active OneTouch Delica Lancets 33G MISC USE TO CHECK BLOOD SUGAR ONCE DAILY. E11.9 1 Active glipiZIDE CR 24hr (GLUCOTROL XL) 2.5 MG tablet Take 1 (one) tablet by mouth daily before breakfast Active Polyethylene Glycol 3350 (MIRALAX PO) Take by mouth as needed Active tenofovir disoproxil fumarate (Viread) 300 MG tablet Take 1 (one) tablet by mouth once daily 90 tablet 3 4 Active OXcarbazepine (Trileptal) 300 MG tabletIndicatio ns:Trigeminal neuropathy Take 1 (one) tablet by mouth 3 times daily 270 tablet 3 4 Active gabapentin (Neurontin) 400 MG capsuleIndicati ons:Trigeminal neuropathy TAKE 1 CAPSULE BY MOUTH FOUR TIMES DAILY 960 capsule 3 5 Active lisinopril (Prinivil; Zestril) 2.5 MG tabletIndicatio ns: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) Take 1 (one) tablet by mouth once daily Active Active Problems Problem Noted Date Diagnosed Date Slow transit constipation 01/28/2025 Trismus 01/23/2023 Hepatic encephalopathy 12/26/2022 S/P TIPS (transjugular intrahepatic portosystemi c shunt) 06/25/2021 Hepatic hemangioma 06/25/2021 Trigeminal neuralgia of left side of face 2019 Hx of gynecomastia 12/13/2019 Bilateral mastodynia 12/13/2019 Hyperlipidemia 08/25/2015 Esophageal varices without bleeding 04/24/2015 Portal hypertension with esophageal varices 04/15 Pure hypercholesterolemia 04/23/2015 Calculus of kidney 04/23/2015 Overview (01/15/2018): 03/2015 lithotripsy but with persistent stone fragments Hypercholesterolemia 04/23/2015 GERD (gastroesophageal reflux disease) 5 Kidney stones 04/23/2015 Overview (12/13/2019): Overview: 03/2015 lithotripsy but with persistent stone fragments Small intestinal bacterial overgrowth 12/04/2014 Trigeminal neuralgia 08/04/2014 Change in bowel habits 08/04/2014 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 with cir rhosis 05/31/2012 Overview (12/13/2019): Overview: 07/26/07: ALT 397, HBsAg positive, anti-HBs negative, anti-HBc IgM positive, HBeAg positive, anti-HBe negative, HBV DNA > 10^8. 10/22/07 liver biopsy: HBV IHC positive, established cirrhosis 08/08/11: HBsAg negative, anti-HBs positive, HBeAg negative, anti-HBe positive, HBV DNA positive but too low to quantify 05/28/13: HBsAg negative, DNA negative 03/11/14: HBsAg negative, DNA negative Resolved Problems Problem Noted Date Diagnosed Date Resolved Date Tongue mass 05/03/2022 07/13/2022 Cirrhosis of liver 08/31/2015 2 Overview (01/15/2018): 06/02/14 CT: cysts and hemangioma, no arterially enhancing lesions, patent vessels, minimal ascites 05/25/15 CT: 1. New patent TIPS extending from the right portal vein to the right hepatic vein. There is new thrombosis of the left portal vein. 2. No significant change in low attenuating lesions within the right and left hepatic lobe which have been previously described as hemangiomas. 3. Bilateral renal calculi. Chronic viral hepatitis B without delta-agent 04/23/20 15 12/23/2022 Overview (01/15/2018): 07/26/07: ALT 397, HBsAg positive, anti-HBs negative, anti-HBc IgM positive, HBeAg positive, anti-HBe negative, HBV DNA > 10^8. 10/22/07 liver biopsy: HBV IHC positive, established cirrhosis 08/08/11: HBsAg negative, anti-HBs positive, HBeAg negative, anti-HBe positive, HBV DNA positive but too low to quantify 05/28/13: HBsAg negative, DNA negative 03/11/14: HBsAg negative, DNA negative Gastrointestinal hemorrhage 04/23/2015 07/02/2018 Esophageal varices 04/23/2015 2 Overview (12/13/2019): Overview: 06/04/14 EGD: small esophageal varices, no banding 09/24/14 EGD: small esophageal varices, possible gastric varix, no banding 04/13/15 EGD for acute bleeding: grade 2 esophageal varices, banded x 3, small gastric varices ([facility]) 04/19/15 EGD for continued bleeding: large varices, no banding because of fibrin clot on a non-bleeding gastric varix 04/21/15 EGD: grade 2 esophageal varices and gastric varix with stigmata, gastric varix treated with sclerotherapy 04/23/15 TIPS procedure done GI bleed 04/22/2015 12/23/2022 Change in bowel habits 08/04/201407/02 Cirrhosis of liver 05/31/2012 Overview (12/13/2019): Overview: 06/02/14 CT: cysts and hemangioma, no arterially enhancing lesions, patent vessels, minimal ascites 05/25/15 CT: 1. New patent TIPS extending from the right portal vein to the right hepatic vein. There is new thrombosis of the left portal vein. 2. No significant change in low attenuating lesions within the right and left hepatic lobe which have been previously described as hemangiomas. 3. Bilateral renal calculi. Encounters Date Type Department Care Team Description 02/06/2025 9:30 AM CDT Office Visit [facility] - Neurology [address] [place] [phone] Janie Wilson APRN-INVESTMENT BANKING ASSOCIATE Trigeminal neuropathy (Primary Dx) 02/06/2025 Travel 01/28/2025 9:30 AM CDT Office Visit [facility] - GI [address] [place] [phone] Abdirashid Andrew MD Slow transit constipation (Primary Dx); 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); S/P TIPS (transjugular intrahepatic portosystemic shunt); Secondary esophageal varices without bleeding (HCC) 01/28/2025 8:00 AM CDT - 01/28/2025 11:59 PM CDT Hospital Encounter [facility] US [address] [place] [address] Abdirashid Andrew MD Discharge Disposition: Home or Self Care 01/28/2025 Orders Only [facility] IVR [address] [place] [address] Davy Decker MD S/P TIPS (transjugular intrahepatic portosystemic shunt) ; 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); Stenosis of other vascular prosthetic devices, implants and grafts, sequela 01/28/2025 Travel 01/07/2025 Refill [facility] - Neurology [address] [place] [address] Janie Wilson APRN-CNP Refill Request from Last 3 Months Immunizations Immunization Administration Dates Next Due INFLUENZA VACCINE 08/01/2019,07/16/2018 INFLUENZA VACCINE, ADJUVANTE D, QUADR. (FLUAD QUADRIVALENT; 65Y+) (AIIV4) 06/16/2020 INFLUENZA VACCINE, ADJUVANTE D, TRIV. (FLUAD TRIVALENT; 65Y+) (AIIV3) 08/01/2019 INFLUENZA VACCINE, CELL CULT URE, QUADR. (FLUCELVAX QUADRIVALENT; 6MO+), 0.5 ML (CCIIV4) 07/17/2018 INFLUENZA VACCINE, HIGH-DOSE , QUADR. (FLUZONE HIGH-DOSE QUADRIVALENT; 65Y+), 0.7 ML (HD-IIV4) 07/13/2021 Pneumococcal Pcv13 Conj 07/08/2020 Zoster Hzv Vacc Recombinant Inj Im 12/10/2021, Family History Medical History Relation Name Comments Cancer Brother Esophageal canc er; Status: Alive CVA Father Status: d None Known Mother Status: d None Known Sister 1 Status: Alive None Known Sister 2 Status: Alive Relation Name Status Comments Brother Father Mother Sister 1 Sister 2 Social History Tobacco Use Types Packs/Day Years Used Date Smoking Tobacco: Never Smokeless Tobacco: Never Tobacco Cessation:Counseling Given: Not Answered Alcohol Use Standard Drinks/Week Comments Yes 4 (1 standard drink = 0.6 oz pur e alcohol) AUDIT-C Answer Date Recorded Q1: How often do you have a drink containing alc ohol? Monthly or less 07/27/2023 Q2: How many drinks containi ng alcohol do you have on a typical day when you are drinking? 1 or 2 07/27/2023 Q3: How often do you have si x or more drinks on one occasion? Never 07/27/2023 PHQ-2 Answer Date Recorded Patient Health Questionnaire-2 Score 0 06/27/2023 Sex and Gender Information Value Date Recorded Sex Assigned at Not on file Legal Sex Male 5:23 PM [employer]ASH [employer] Gender Identity Not on file Sexual Orientation Not on file Last Filed Vital Signs Vital Sign Reading Time Taken Comments Blood Pressure 131/77 02/06/2025 9:50 AM CDT Pulse 58 02/06/2025 9:50 AM CDT Temperature 36.4 C (97.5 F) 01/28/2025 9:20 AM CDT Respiratory Rate 18 07/19/2024 3:01 PM CDT Oxygen Saturation 99% 02/06/2025 9:50 AM CDT Inhaled Oxygen Concentration - - Weight 82.1 kg (181 lb) 02/06/2025 9:50 AM CDT Height 180.3 cm (5' 11 ) 01/28/2025 9:20 AM CDT Body Mass Index 25.24 01/28/2025 9:20 AM CDT Plan of Treatment Upcoming Encounters Date Type Department Care Team (Late st Contact Info) Description 02/25/2025 7:30 AM CDT Appointment [facility] IVR [address] [place] [phone] Davy Decker MD [address] [place] [address] 06/30/2025 1:00 PM CDT Appointment [facility] RAD ONC [address] [place] [address] Cale Walden MD [address] [place] [address] 06/30/2025 1:00 PM CDT Appointment [facility] RAD ONC [address] [place] [address] Mitchel Gustafson MD [facility] [facility] 2L [place] [address] 08/12/2025 9:30 AM CDT Appointment [facility] [address] [place] [phone] Abdirashid Andrew MD [address] [facility] 2L [place] [address] 08/12/2025 11:00 AM CDT Office Visit [facility] - GI [address] [place] [address], [place] [address] Abdirashid Andrew MD [address] [place] [address] [address]L [place] [address] 10/02/2025 9:30 AM WASH TANK TENDER Office Visit [facility] - Neurology [address] [place] [address], [place] [phone] Katie José Luisdavid, SOUND TESTER-INVESTMENT BANKING ASSOCIATE [address] [place] [address] [address] [place] [address] Health Maintenance Due Date Last Done Comments MEDICARE AWV 12 MONTHS 1945 DTAP/TDAP/TD VACCINES (1 - Tdap) 01/06/1964 HEPATITIS B VACCINE (1 of 3 - Risk 3-dose series) 2005 Respiratory Syncytial Virus (RSV) Vaccine Pt: or over 60 yrs (1 - 1-dose 75+ series) 01/06/2020 PNEUMOCOCCAL VACCINE 50+ (2 of 2 - PPSV23) 09/02/2020 07/08/2020 COVID-19 VACCINE ( - season) 2024 07/13/2021, 12/19/2020, 11/28/2020 DEPRESSION SCREENING 10/16/2024 06/27/2023 INFLUENZA VACCINE (Season Ended) 2025 07/13/2021, 06/16/2020, 08/01/2019, Additional history exists ZOSTER VACCINE Completed 12/10/2021, 08/27/2021 HIB VACCINE Aged Out No longer eligi ble based on patient's age to complete this topic HPV VACCINE Aged Out No longer eligi ble based on patient's age to complete this topic MENINGOCOCCAL (Group B) VACCINE SHARED DECISION-MAKING Aged Out No longer eligible based on patient's age to complete this topic MENINGOCOCCAL GROUPS A/C/Y/W VACCINE Aged Out No longer eligible based on patient's age to complete this topic Goals Goal Patient Goal Type Associated Problems Recent Progress Patient-Stated? Author Medication Management General On track( 9:27 AM CDT) No Maki Hernandez, RN Note: Expected end date: ongoing Interventions: Take all medications as prescribed Let your doctor know right away about any changes in your medications Make sure to request a refill of your medication at least one week prior to your last dose Safety General On track( 9:27 AM CDT) No Maki Hernandez, RN Note: Expected end date: ongoing Interventions: Your nurse will assess your risk for falls/injury each visit Make sure appropriate safety devices are available and within reach Be aware of medications that could predispose you to falling Wear non-skid/rubber sole footwear Keep personal items within easy reach Use some light at night in your room Procedures Procedure Name Priority Date/Time Associated Diagnosis Comments HEPATITIS B SURFACE AG QNT MONITORING 01/28/2025 10:58 AM CDT 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) COMPREHENSIVE METABOLIC PANEL 01/28/2025 10:58 AM CDT 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) MICROALB/CREAT RATIO URINE RANDOM PANEL 01/28/2025 10:58 AM CDT 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) CBC W AUTO DIFFERENTIAL Routine 01/28/2025 10:58 AM CDT 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) S/P TIPS (transjugular intrahepatic portosystemic shunt) Secondary esophageal varices without bleeding (HCC) US TIPS W ABDOMEN LIMITED Routine 01/28/2025 9:22 AM CDT 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) S/P TIPS (transjugular intrahepatic portosystemic shunt) Secondary esophageal varices without bleeding (HCC) from Last 3 Months Results * HEPATITIS B SURFACE AG QNT MONITORING (01/28/2025 10:58 AM CDT) Hepatitis B Virus Surface Antigen Quantitative <0.05 IU/mL [facility] Comment: REFERENCE RANGE: <0.05 IU/mL The HBsAg Quantitative test should not be used to diagnose HBV infection. For HBV diagnosis, test code 498(X) Hepatitis B Surface Antigen with Reflex Confirmation and test code 501(X) Hepatitis B Core Antibody, Total are recommended. Quantitative HBsAg should be used to confirm ongoing hepatitis B virus (HBV) replication, evaluate prognosis in selected patients, and monitor response to antiviral treatment. For additional information, please refer to http://education.[employer]/faq/EBG825 (This link is being provided for informational/ educational purposes only.) Test Performed at: [email or web address] [facility] [address] [place] [address] GABY RAMOS MD,PHD,RODOLFO 01/28/2025 10:5 8 AM CDT 01/28/2025 10:58 AM CDT Abdirashid Andrew MD LAB - CHEMISTRY ORDERABLES Fin al Result [facility] [address] [place] [address] * MICROALB/CREAT RATIO URINE RANDOM PANEL (01/28/2025 10:58 AM CDT) Creatinine Urine 115 20 - 320 mg/dL [facility] Microalbumin Urine 1.0 mg/dL [facility] Comment: Reference Range Not established Microalbumin/Creat inine Ratio 9 <30 mg/g creat [facility] Comment: The ADA defines abnormalities in albumin excretion as follows: Albuminuria Category Result (mg/g creatinine) Normal to Mildly increased <30 Moderately increased 30-299 Severely increased > OR = 300 The ADA recommends that at least two of three specimens collected within a 3-6 month period be abnormal before considering a patient to be within a diagnostic category. Test Performed at: [facility] [address] [place] [address] KERA JUSTICE MD 01/28/2025 10:5 8 AM CDT 01/28/2025 10:58 AM CDT us Abdirashid Andrew MD LAB - URINE CHEMISTRY ORDERABL ES Final Result [facility] [address] [place] [address] * CBC WITH DIFFERENTIAL (01/28/2025 10:58 AM CDT) White Blood Cell Count 4.1 3.8 - 10.8 Thousand/u L [facility] RBC 4.49 4.20 - 5.80 Million/uL [facility] Hemoglobin 13.9 13.2 - 17.1 g/dL [facility] Hematocrit 41.9 38.5 - 50.0 % [facility] MCV 93.3 80.0 - 100.0 fL [facility] MCH 31.0 27.0 - 33.0 pg [facility] MCHC 33.2 32.0 - 36.0 g/dL [facility] Comment: For adults, a slight decrease in the calculated MCHC value (in the range of 30 to 32 g/dL) is most likely not clinically significant; however, it should be interpreted with caution in correlation with other red cell parameters and the patient's clinical condition. RDW 13.4 11.0 - 15.0 % [facility] Platelet Count 157 140 - 400 Thousand/u L [facility] MPV 10.5 7.5 - 12.5 fL [facility] Neutrophil Absolute 2542 1500 - 7800 cells/uL [facility] Absolute Bands [facility] Metamyelocytes Absolute [facility] Myelocytes Absolute [facility] Absolute Prolymphocytes [facility] Lymphocytes Absolute 923 850 - 3900 cells/uL [facility] Absolute Monocytes 365 200 - 950 cells/uL [facility] Eosinophils Absolute 242 15 - 500 cells/uL [facility] Basophils Absolute 29 0 - 200 cells/uL [facility] Absolute Blasts [facility] nRBC Absolute [facility] Granulocytes % 62 % [facility] Band Neutrophil [facility] Metamyelocytes [facility] Myelocytes [facility] Promyelocytes [facility] Lymphocytes % 22.5 % [facility] Lymphocyte Reactive [facility] Monocytes % 8.9 % [facility] Eosinophils % 5.9 % [facility] Basophils % 0.7 % [facility] Comment: Test Performed at: [facility] [place] [address] KERA JUSTICE MD Blasts [facility] nRBC [facility] Comments [facility] Comment: Test Performed at: [facility] [address] [place] [address] KERA JUSTICE MD Blood BLOOD SPECIMEN / Unknown 01/28/2025 10:58 AM CDT 01/28/2025 10:58 AM CDT Abdirashid Andrew MD LAB - HEMATOLOGY ORDERABLES Fi nal Result Performing Organization Address City/[facility]/ZIP Co de Phone Number [facility] [address] [place] [address] * (ABNORMAL) COMPREHENSIVE METABOLIC PANEL (01/28/2025 10:58 AM CDT) Glucose 160(H) 65 - 99 mg/dL [facility] Comment: Fasting reference interval For someone without known diabetes, a glucose value >125 mg/dL indicates that they may have diabetes and this should be confirmed with a follow-up test. BUN 13 7 - 25 mg/dL [facility] Creatinine 0.96 0.70 - 1.22 mg/dL [facility] eGFR by Cystatin C 80 > OR = 60 mL/min/1. 73m2 [facility] BUN/Creatinine Ratio SEE NOTE: 6 - 22 (calc) [facility] Comment: Not Reported: BUN and Creatinine are within reference range. Sodium 140 135 - 146 mmol/L [facility] Potassium 4.7 3.5 - 5.3 mmol/L [facility] Chloride 105 98 - 110 mmol/L [facility] CO2 29 20 - 32 mmol/L [facility] Calcium 8.9 8.6 - 10.3 mg/dL [facility] Protein Total 6.3 6.1 - 8.1 g/dL [facility] Albumin 3.7 3.6 - 5.1 g/dL [facility] Globulin Total 2.6 1.9 - 3.7 g/dL (calc) [facility] Albumin/Globulin Ratio 1.4 1.0 - 2.5 (calc) [facility] Bilirubin Total 0.4 0.2 - 1.2 mg/dL [facility] Alkaline Phosphatase 99 35 - 144 U/L [facility] AST 20 10 - 35 U/L [facility] ALT 13 9 - 46 U/L [facility] Comment: Test Performed at: [facility] [address] [place] [address] KERA JUSTICE MD 01/28/2025 10:5 8 AM CDT 01/28/2025 10:58 AM CDT Abdirashid Andrew MD LAB - CHEMISTRY ORDERABLES Fin al Result [facility] [address] [place] [address] * US Tips W Abdomen Limited (01/28/2025 9:22 AM CDT) Anatomical Region Laterality Modality Abdomen Ultrasound 01/28/2025 9:39 AM CDT Impressions 01/28/2025 1:56 PM CDT IMPRESSION: 1.Patent transjugular intrahepatic portal systemic shunt (TIPS) with reduced velocities in the proximal and middle segments and normal velocity in the distal segment. Persistent hepatopedal flow in the left portal vein. Findings concerning for TIPS dysfunction. 2.Hepatic cirrhosis with sequela of portal hypertension including splenomegaly. 3.Patent hepatic vasculature. 4.Status post cholecystectomy. > Dictated by Ashish Ward MD, MD (vice president investor relations). > Dictated by Ashish Ward MD (Truck Bracer) 01/28/2025 9:39 AM IEliana MD have personally reviewed and interpreted this examination/study. > Interpreting Provider: Eliana Leary MD on 01/28/2025 1:56 PM Narrative 01/28/2025 1:56 PM CDT PROCEDURE: US TIPS W ABDOMEN LIMITED, DATE/TIME OF EXAM: 01/28/2025 9:23 AM, LOCATION [facility] INDICATION: B18.1: 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) K74.60: 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) Z95.828: S/P TIPS (transjugular intrahepatic portosystemic shunt) I85.10: Secondary esophageal varices without bleeding (HCC) COMPARISON: Ultrasound transjugular intrahepatic portal systemic shunt with abdomen from 07/19/2024. FINDINGS: Abdomen: The liver has a coarse echotexture and nodular surface, consistent with cirrhosis. Cyst in the right lobe measuring up to 0.9 cm. No discrete hepatic mass or biliary dilation. Gallbladder is absent. The common bile duct is dilated up to 8.3 mm, likely due to postcholecystectomy state. The right kidney measures 11.3 x 5.4 x 5.2 cm. Limited views of the right kidney reveal no evidence of nephrolithiasis or hydronephrosis. The spleen measures 13.3 cm in length. The visible pancreas is normal in echogenicity. No ascites is present. Liver Doppler: Proximal TIPS velocity: 63 cm/s (previously 42 cm/s) Middle TIPS velocity: 69 cm/s (previously 85 cm/s) Distal TIPS velocity: 131 cm/s (previously 70 cm/s) The TIPS is patent. The main portal vein velocity is 37 cm/s. Flow in the LPV is NOT reversed. The right, middle, and left hepatic veins are patent with normal waveforms. The proper hepatic artery is patent with normal arterial waveform and resistive index of 0.7. Procedure Note Rosalia Leary MD - 01/28/2025 PROCEDURE: US TIPS W ABDOMEN LIMITED, DATE/TIME OF EXAM: :23 AM, LOCATION [facility] INDICATION: B18.1: 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) K74.60: 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) Z95.828: S/P TIPS (transjugular intrahepatic portosystemic shunt) I85.10: Secondary esophageal varices without bleeding (HCC) COMPARISON: Ultrasound transjugular intrahepatic portal systemic shunt with abdomen from 07/19/2024. FINDINGS: Abdomen: The liver has a coarse echotexture and nodular surface, consistent with cirrhosis. Cyst in the right lobe measuring up to 0.9 cm. No discrete hepatic mass or biliary dilation. Gallbladder is absent. The common bile duct is dilated up to 8.3 mm,likely due to postcholecystectomy state. The right kidney measures 11.3 x 5.4 x 5.2 cm. Limited views of theright kidney reveal no evidence of nephrolithiasis or hydronephrosis. Thespleen measures 13.3 cm in length. The visible pancreas is normal inechogenicity. No ascites is present. Liver Doppler: Proximal TIPS velocity: 63 cm/s (previously 42 cm/s) Middle TIPS velocity: 69 cm/s (previously 85 cm/s) Distal TIPS velocity: 131 cm/s (previously 70 cm/s) The TIPS is patent. The main portal vein velocity is 37 cm/s. Flow inthe LPV is NOT reversed. The right, middle, and left hepatic veins arepatent with normal waveforms. The proper hepatic artery is patent with normal arterial waveform and resistive index of 0.7. IMPRESSION: 1.Patent transjugular intrahepatic portal systemic shunt (TIPS) with reduced velocities in the proximal and middle segments and normalvelocity in the distal segment. Persistent hepatopedal flow in the left portalvein. Findings concerning for TIPS dysfunction. 2.Hepatic cirrhosis with sequela of portal hypertension including splenomegaly. 3.Patent hepatic vasculature. 4.Status post cholecystectomy. > Dictated by Ashish Ward MD, MD (vice president investor relations). > Dictated by Ashish Ward MD (Truck Bracer) 01/28/2025 9:39 AM IEliana MD have personally reviewed and interpreted this examination/study. > Interpreting Provider: Eliana Leary MD on 01/28/2025 1:56 PM us Abdirashid Andrew MD ORDERABLES Final Result from Last 3 Months Insurance MEDICARE [facility] Address: [facility] [id number] [place] [address] MEDICARE [facility] Care Teams Location Analyst Relationship Specialty Start Date End Date Cesario Wilkinson MD [address] [place] [address] PCP - General 01/08/19 Mitchel Gustafson MD [address] [place] [address] Neurological Surgery 05/19/20 Cale Walden MD [address] [place] [address] Radiation Oncology 05/19/20
--- OUTSIDE RECORDS SUMMARY | 2025-02-10 11:24 | XMS_ITS | Encounter Summary ---
Author Organization [facility] Address [address] [place] [address] Care Team Providers Care Professional Skateboarder Name Role Phone Cesario Wilkinson MD Primary Care Provider Mitchel Gustafson MD Unavailable Cale Walden MD Unavailable [phone] Encounter Details Date Type Department Care Team (Late st Contact Info) Description 02/13/2024 Telephone [facility] Neu[facility] [facility], [place] [address] Janie Wilson APRN-CLINICAL RESEARCHER [address] [place] [address] [place] [address] Social History Tobacco Use Types Packs/Day Years Used Date Smoking Tobacco: Never Smokeless Tobacco: Never Alcohol Use Standard Drinks/Week Comments Yes 4 [...] on file Legal Sex Male 5:23 PM AREA DIRECTOR OF HOME HEALTH SALES Gender Identity Not on file Sexual Orientation Not on file documented as of this encounter Functional Status * Is person deaf or have serious hearing difficulty? Answer Date of Assessment Author No 07/27/2023 2:57 PM CDT Silvano Mckinney RN * Is person blind or have serious difficulty seeing? Answer Date of Assessment Author No 07/27/2023 2:57 PM CDT Silvano Mckinney RN * Does person have serious difficulty walking/climbing stairs? Answer Date of Assessment Author No 07/27/2023 2:57 PM CDT Silvano Mckinney RN * Does person have difficulty dressing/bathing? Answer Date of Assessment Author No 07/27/2023 2:57 PM CDT Silvano Mckinney RN * Does person have difficulty doing errands alone? Answer Date of Assessment Author No 07/27/2023 2:57 PM CDT Silvano Mckinney RN documented as of this encounter Mental Status * Does person have difficulty concentrating/remembering/making decisions? Answer Entry Date Author No 07/27/2023 2:57 PM CDT Silvano Mckinney RN documented in this encounter Miscellaneous Notes * Telephone Encounter - Yesica Wilkinson - 02/13/2024 3:19 PM CDT Pt is calling today because a RX is needed to be written for Mr Rayo to take 1 tablet BID insteadof 1.5 BID so for insurance purposes and also for their clarification as well documented in this encounter Plan of Treatment Upcoming Encounters Date Type Department Care Team (Late st Contact Info) Description 02/25/2025 7:30 AM CDT Appointment [facility] IVR [address] [place] [address] Davy Decker MD [address] [place] [address] 06/30/2025 1:00 PM CDT Appointment [facility] RAD ONC [facility] [place] [address] Cale Walden MD [address] [place] [address] [place] [address] 06/30/2025 1:00 PM CDT Appointment [facility] RAD ONC [address] [place] [address] Mitchel Gustafson MD [facility] 2L [place] [address] 08/12/2025 9:30 AM CDT Appointment [facility] [address] [place] [id number] Abdirashid Andrew MD [address] [place] [address] 2L [place] [address] 08/12/2025 11:00 AM CDT Office Visit [facility] - GI [address] [place] [address], [place] [phone] Abdirashid Andrew MD [address] [place] [address] 2L [place] [address] 10/02/2025 9:30 AM AREA DIRECTOR OF HOME HEALTH SALES Office Visit [facility] - Neurology [address] [place] [address], [place] [id number] Janie Wilson, VOLUNTEER SERVICES SPECIALIST-CLINICAL RESEARCHER [address] [place] [address] 1L [place] [id number] documented as of this encounter Goals Goal Patient Goal Type Associated Problems [...] some light at night in your room documented as of this encounter Visit Diagnoses Not on filedocumented in this encounter Care Teams Professional Skateboarder Relationship Specialty Start Date End Date Cesario Wilkinson MD [address] [place] [address] PCP - General 01/08/19 Mitchel Gustafson MD [address] [place] [address] Neurological Surgery 05/19/20 Cale Walden MD [address] [place] [address] Radiation Oncology 05/19/20 documented as of this encounter
--- OUTSIDE RECORDS SUMMARY | 2025-02-10 11:24 | XMS_ITS | Clinical Summary ---
Author Organization [facility] Address [address] [facility] [address] [place] [address] Phone Care Team Providers Care Director Of Radiology Name Role Phone Tim Fulton MD Primary Care Provider [phone] Allergies No known active allergies Medications polyethylene glycol (MIRALAX) Powder Use entire 255g bottle with 64oz of clear liquid as directed for colonoscopy prep. 255 g 0 7 Active finasteride (PROSCAR) 5 MG Tablet Take 1 Tab by mouth daily. 0 7 Active lactulose (CHRONULAC) 10 GM/15ML Solution Take 30 mL by mouth as needed. 2 7 Active rosuvastatin (CRESTOR) 10 MG Tablet Take 1 Tab by mouth daily. 0 7 Active tamsulosin (FLOMAX) 0.4 MG Capsule Take 2 Caps by mouth daily. 0 7 Active VIREAD 300 MG Tablet Take 1 Tab by mouth daily. 3 7 Active furosemide (LASIX) 40 MG Tablet Take 40 mg by mouth daily. Active Family History Medical History Relation Name Comments Cancer Brother Throat Other-comment Father ALS Stroke Father Relation Name Status Comments Brother Father Social History Tobacco Use Types Packs/Day Years Used Date Smoking Tobacco: Never Smokeless Tobacco: Never Alcohol Use Standard Drinks/Week Comments Yes 4 (1 standard drink = 0.6 oz pur e alcohol) Sex and Gender Information Value Date Recorded Sex Assigned at Not on file Legal Sex Male 10:33 PM CDT Gender Identity Not on file Sexual Orientation Not on file Plan of Treatment Health Maintenance Due Date Last Done Comments Hepatitis C Virus (HCV) Screening 1945 TdaP Immunization 1945 Pneumococcal Immunization (5 0+ years) (1 of 1 - PCV) 1995 Zoster Immunization (1 of 2) 1995 Respiratory Syncytial Virus (RSV) Immunization (Adult) (1 - 1-dose 75+ series) 01/06/2020 Influenza Immunization (#1) 2024 SARS-COV-2 Immunization (1 - 2023- season) 2024 Colonoscopy High Risk Discontinued 03/23/2017 Colonoscopy Discontinued 03/23/2017 Colorectal Cancer Screening Discontinued Cologuard Discontinued Hepatitis B Immunization Aged Out No longer eligible based on patient's age to complete this topic Immunochemical Fecal Occult Blood Discontinued Meningococcal Immunization (ACWY) Aged Out No longer eligible based on patient's age to complete this topic Rotavirus Immunization Aged Out No lo nger eligible based on patient's age to complete this topic Procedures Procedure Name Priority Date/Time Associated Diagnosis Comments COLONOSCOPY Routine 03/23/2017 from Last 3 Months or Most Recently Relevant to Health Maintenance Results * COLONOSCOPY (03/23/2017) Tim Fulton MD PROCEDURE/MINOR SURGICAL ORDERA BLES Final Result from Last 3 Months or Most Recently Relevant to Health Maintenance Insurance MEDICARE [facility] Care Teams Director Of Radiology Relationship Specialty Start Date End Date Tim Fulton MD [address] [place] [address] PCP - General Family Medicine 11/30/16
[2025-02-10 11:53] LABS: Alanine Aminotransferase 20 U/L (6-50); Albumin Level 4.1 g/dL (3.5-5.1); Alkaline Phosphatase 120 U/L (38-126); Anion Gap 7 mmol/L (4-12); Aspartate Amino Transferase 42 U/L (17-59); Bilirubin,Total 0.6 mg/dL (0.2-1.3); Blood Urea Nitrogen 13 mg/dL (9-20); Calcium 8.9 mg/dL (8.4-10.2); Carbon Dioxide 27 mmol/L (22-30); Chloride 104 mmol/L (98-107); Estimated Glomerular Filt Rate > 60; Glucose 145 mg/dL (65-110); Potassium 4.6 mmol/L (3.4-5.0); Sodium 138 mmol/L (137-145)
[2025-02-10 12:10] LABS: Hemoglobin A1C 7.6 % (<5.7)
== END 2025-02-10 10:07 | disposition home or self-care (01) ==
LOC: ANHGOSHLAB 10:07
PROVIDERS: PCP Family Medicine; Visit Provider Family Medicine
DX: E11.9 Type 2 diabetes mellitus without complications (principal); I10 Essential (primary) hypertension
CPT/HCPCS: 36415; 80053; 83036

== ENCOUNTER 2025-03-19 10:15 | Emergency (ER) | payer MEDICARE, SELFPAY ==
[2025-03-19 10:25] VITALS: BP 116/66; PULSE 63; RESP 16; TEMP 36.5; O2SAT 100
--- NOTE | 2025-03-19 10:55 | ECG_ITS ---
Test Date: 2025-03-19 11:08:22 Measurements Intervals [place]um Rate: 54 P: 27 RI: 212 QRS: 17 QRSD: 102 T: -22 QT: 441 QTc: 421 Interpretive Statements SINUS BRADYCARDIA WITH FIRST DEGREE AV BLOCK BORDERLINE R WAVE PROGRESSION, ANTERIOR LEADS CONSIDER INFERIOR INFARCT, AGE INDETERMINATE MODERATE T-WAVE ABNORMALITY, CONSIDER ANTERIOR ISCHEMIA ABNORMAL ECG No previous ECG available for comparison Electronically Signed On 03-19-2025 11:35:41 CDT by Kyle Hernandez D.O.
--- NOTE | 2025-03-19 10:56 | ED_ITS ---
HPI - Dizziness General Chief Complaint: Dizziness Stated Complaint: DIZZY/CONFUSION Time Seen by Provider: 03/19/25 10:45 Source: patient and RN notes reviewed Mode of arrival: ambulatory Limitations: no limitations History of Present Illness HPI Narrative: 80-year-old male presents Express Care complaining of dizziness and confusion. Patient called his PCP in a advised to go to ER for symptoms. Patient is here today stating his dizziness has been going on over the last 2 weeks. Patient reports that he feels like he is off balance especially when he stands up quickly or turns his head too fast. Patient states he has to hold onto objects at home to maintain his a steady gait. Patient denies any falls. Patient states his dizziness is getting worse over the last few days. Patient also noticed he feels like he is more confused than normal. Patient says he becomes forgetful at times and states that is not normal for him. Patient denies any slurred speech, vision changes, chest pain, shortness of breath, syncope, lightheadedness, blood in his stool, or any urinary symptoms. States he does have a history of cirrhosis, hypertension, diabetes. Related Data Home Medications ?Medication ?Instructions ?Recorded ?Confirmed ?Last Taken ?Type tenofovir disoproxil fumarate 300 300 mg PO DAILY 11/20/19 07/31/24 09/05/22 History mg tablet (Viread) multivitamin 1 tablet PO DAILY 11/27/19 07/31/24 09/05/22 History polyethylene glycol 3350 17 17 g PO DAILY PRN Constipation 05/25/21 07/31/24 09/05/22 History gram/dose oral powder (Miralax) gabapentin 400 mg capsule 400 mg PO QID 01/10/22 07/31/24 09/06/22 06:30 History oxcarbazepine 300 mg tablet 300 mg PO TID 02/10/25 Unknown History Allergies Allergy/AdvReac Type Severity Reaction Status Date / Time No Known Allergies Allergy Verified 03/19/25 12:51 Review of Systems Review of Systems: CONSTITUTIONAL: Denies fever, chills, or sweats. EYES: Denies visual changes, redness, or discharge. ENT: Denies rhinorrhea, congestion, sore throat, or otalgia. CARDIOVASCULAR: Denies chest pain, palpitations, or edema. RESPIRATORY: Denies cough or dyspnea. GASTROINTESTINAL: Denies abdominal pain, nausea, vomiting, or diarrhea. GENITOURINARY: Denies dysuria or hematuria. SKIN: Denies rash or itching. MUSCULOSKELETAL: Denies back pain, joint pain, or myalgia. NEUROLOGIC: Denies headache, numbness, or weakness. PSYCHIATRIC: Denies anxiety or depression. All other systems reviewed are negative, except as documented in HPI. [facility] Past Medical History Medical History Vasomotor rhinitis Leucopenia History of colon polyps History of gynecomastia benign 03/2007 Multiple lipomas Localized swelling, mass and lump, upper limb, bilateral Lumbar spondylosis Chronic constipation MYRANDA (obstructive sleep apnea) Type 2 diabetes mellitus without complication, without long-term current use of insulin Trigeminal neuralgia of left side of face s/p stereo tactic radiation surgery Thrombocytopenia Chronic hepatitis B Cirrhosis of liver due to hepatitis B History of kidney stones BPH w/o urinary obs/LUTS Edema of both legs Dyslipidemia Surgical History Surgical History History of back surgery 1995 History of hernia repair 1950 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 Hx of transurethral resection of prostate 2019 History of lumbosacral spine surgery 03/05/2018 Family History Family History Mother Hypertension Sibling Family history of malignant neoplasm of esophagus Other Family history of cardiovascular disease Family history of kidney disease Social History Social History Smoking status: Never smoker Second hand tobacco smoke exposure: No Additional smoking assessment comments: cigarettes smoke exposure as a child from father Alcohol intake: current Drinks per week: 3 Alcohol use details: WINE Substance use: never Substance use type: does not use Lack of Transportation: No Lack of Food: Never True Current Housing: I Have Housing Concerned About Future Housing: No Difficulty Paying Gas/Electric Bills: No Difficulty Paying for Meds: No Currently Unemployed: No Education: Bachelor's Degree Difficulty w/ Childcare or Family Care: No Living arrangements: with family Spiritual care concerns: No Comments At the time of my signature, I reviewed and agree with the nursing past medical, surgical, social, and family history. There is no relevant family history pertinent to the patient complaint. Exam Narrative: GENERAL: This is a well-nourished, well-developed adult, in no apparent distress. They are non ill-appearing, nontoxic appearing. HEAD: normocephalic, atraumatic. EYES: Sclera clear/white. Conjunctiva normal. Vision is grossly intact. Extraocular movements intact. Pupils PERRLA. No nystagmus. EARS: External ears normal, auditory canals clear and without drainage, TMs normal without perforation. Hearing grossly intact. NOSE: External nose normal with no obvious nasal discharge, nasal turbinates without redness, no rhinorrhea. THROAT: Mucous membranes moist, posterior pharynx clear, without erythema or swelling. Uvula midline. NECK: Neck supple, non-tender without lymphadenopathy, masses or thyromegaly. CARDIOVASCULAR: Regular rate and rhythm without murmurs, gallops, or rubs. RESPIRATORY: Clear to auscultation. Breath sounds equal bilaterally. No wheezes, rales, or rhonchi. SKIN: warm, Dry, intact with no suspicious lesions or rash, good texture and turgor. NEURO: awake, alert, and oriented to person, place and time. There were no obvious focal neurologic abnormalities. No facial droop, speech clear and comprehensive. No pronator drift. Hazard Waste Handler strength equal bilaterally. No limb ataxia. EXTREMITIES: No joint tenderness, effusion, or edema noted. BACK: Nontender without deformity. No CVA tenderness. Course Course Emergency Course: Portions of this record may have been created with voice recognition software Level of Care: Express Care Visit Vital Signs Vital signs: Vital Signs Temperature 97.7 F 03/19/25 10:25 Pulse Rate 63 03/19/25 10:25 Respiratory Rate 16 03/19/25 10:25 Blood Pressure 116/66 03/19/25 10:25 Pulse Oximetry 100 03/19/25 10:25 Temperature 97.7 F 03/19/25 10:25 Pulse Rate 66 03/19/25 11:11 Respiratory Rate 16 03/19/25 10:25 Blood Pressure 130/74 03/19/25 11:11 Pulse Oximetry 100 03/19/25 10:25 Reviewed Transfer Transfered to: [facility] Transportation: Other (Private vehicle) Transfer rationale: Dizziness a confusion requiring higher level of care. Accepting physician: Dr. Thomas MDM - Dizziness MDM Narrative Medical decision making narrative: EKG without ischemic changes. T-wave inversions are present. Denies any history of old NC. Patient denies any chest pain or shortness of breath. Patient orthostatic vital signs are negative for hypotension. Given patient's symptoms it is recommend the patient seek our level care at an emergency department. It is agreeable to go to [facility]. Called report over to [facility] and spoke to Dr. Thomas who is aware of this patient accepted the patient for transfer. Patient advised to remain NPO immediately proceed to the ER. Differential Diagnosis Differential diagnosis: Likely other (Vertigo, orthostatic hypotension, vestibular disorder, CVA) ECG Data EKG #1: ECG completion date: 03/19/25 ECG completion time: 11:08 Prior ECG tracings: available for review Ischemic changes: t wave inversions EKG Interpretation: bradycardia, sinus rhythm, no ectopy, no ST changes and other (First-degree heart block) Critical Care Time Critical Care Time Critical Care Time: No Discharge Plan Discharge Clinical Impression: Dizziness, Forgetfulness Patient Disposition: Acute Care Hospital Condition: Stable Patient Language: Bermudian Prescriptions: No Action oxcarbazepine 300 mg tablet 300 mg PO TID ipratropium bromide 42 mcg (0.06 %) spray,non-aerosol 2 spray intranasal TID Qty: 15 1RF Rx Instructions: administer into each nostril multivitamin Tablet 1 tablet PO DAILY gabapentin 400 mg capsule 400 mg PO QID polyethylene glycol 3350 [Miralax] 17 gram/dose powder 17 g PO DAILY PRN (Reason: Constipation) lisinopril 2.5 mg tablet 2.5 mg PO DAILY Qty: 90 2RF meclizine 25 mg tablet 25 mg PO BID PRN (Reason: dizziness) 7 Days Qty: 14 0RF tenofovir disoproxil fumarate [Viread] 300 mg tablet 300 mg PO DAILY Rx Instructions: take 1 tablet by oral route every day with a meal (DME) lancets 28 gauge misc See Rx Instructions .ROUTE .MEDSUPPLY Qty: 25 0RF Rx Instructions: As directed (DME) blood sugar diagnostic Strip See Rx Instructions .ROUTE .MEDSUPPLY Qty: 100 1RF Rx Instructions: check blood Sugars q.day As directed lancets 33 gauge misc See Rx Instructions miscellaneous DAILY Qty: 100 2RF Dose Instruction: USE TO CHECK BLOOD SUGAR ONCE DAILY. E11.9 Rx Instructions: USE TO CHECK BLOOD SUGAR ONCE DAILY. E11.9 miscellaneous daily; glipizide 2.5 mg tablet extended release 24hr 2.5 mg PO DAILY Qty: 90 1RF metformin 500 mg tablet extended release 24 hr 1,000 mg PO BID Qty: 360 1RF atorvastatin 20 mg tablet 20 mg PO QHS Qty: 90 1RF Follow-up/Referrals: Sonia Wilkinson MD [Primary Care Provider] - Time of Disposition: 11:33
[2025-03-19 11:10] VITALS: BP 132/68; PULSE 52
[2025-03-19 11:11] VITALS: BP 122/69; BP 130/74; PULSE 56; PULSE 66
== END 2025-03-19 11:33 | disposition short-term general hospital (02) ==
PROVIDERS: PCP Family Medicine
DX: R42 Dizziness and giddiness (principal); R41.3 Other amnesia; E11.9 Type 2 diabetes mellitus without complications; Z79.84 Long term (current) use of oral hypoglycemic drugs; I10 Essential (primary) hypertension; K74.60 Unspecified cirrhosis of liver; N40.0 Benign prostatic hyperplasia without lower urinary tract symptoms; E78.5 Hyperlipidemia, unspecified
CPT/HCPCS: 93005; 99213; G0463

== ENCOUNTER 2025-03-19 11:52 | Emergency (ER) | payer MEDICARE, SELFPAY ==
[2025-03-19] VITALS (29 sets, daily range): BP systolic 115–139; BP diastolic 63–83; PULSE 54–71; RESP 11–17; TEMP 36.4; O2SAT 95–100
--- NOTE | ~2025-03-19 | XR_ITS ---
EXAMINATION: XR chest 1V portable 03/19/2025 13:16 INDICATION: Altered mental status PROCEDURE: AP portable chest COMPARISON: 04/22/2015 FINDINGS: The lungs are clear. The cardiomediastinal silhouette is within normal limits. There are no pleural effusions. There is no pneumothorax suspected. IMPRESSION: 1: NO ACUTE CARDIOPULMONARY DISEASE. Reviewed, dictated and finalized at location A.
--- NOTE | ~2025-03-19 | CT_ITS ---
Non-contrast Head CT History: Altered mental status COMPARISON: 01/28/2022 Technique: Axial non-contrast imaging of the brain was performed. Dose reduction technique was used on this scan by utilizing automated exposure control and iterative reconstruction technique. The dose -length product (DLP) was 605.33 mGy-cm. Findings: There is no evidence of intracranial hemorrhage, mass lesion, or acute infarct. Brain par enchyma appears normal. The ventricles and subarachnoid spaces are normal in size. The calvarium ap pears normal. The visualized paranasal sinuses and mastoid air cells are clear. Impression: No significant abnormality seen. Reviewed, dictated and finalized at location . Impression: No significant abnormality seen.
--- OUTSIDE RECORDS SUMMARY | 2025-03-19 11:55 | XMS_ITS | Clinical Summary ---
Author Organization [facility] Address [address] [facility] [address] [place] [address] Phone Care Team Providers Care Fiber Optics Supervisor Name Role Phone Tim Fulton MD Primary Care Provider [phone] Allergies No known active allergies Medications polyethylene [...] Recently Relevant to Health Maintenance Insurance MEDICARE [facility] Care Teams Fiber Optics Supervisor Relationship Specialty Start Date End Date Tim Fulton MD [address] [place] [address] PCP - General Family Medicine 11/30/16
--- OUTSIDE RECORDS SUMMARY | 2025-03-19 11:55 | XMS_ITS | Clinical Summary ---
Author Organization [facility] Address [address] [facility] [place] [address] Care Team Providers Care Aircraft Armorer Name Role Phone Cesario Wilkinson MD Primary Care Provider Mitchel Gustafson MD Unavailable [phone] Cale Walden MD Unavailable [phone] Source Comments [facility],non-owned Affiliates and Associated Physician Practices is amultiple site organization consisting of ambulatory clinics and hospital sitesin [place], [place], [place] and [place]. This disclosure is being madepursuant to the Care Everywhere program and may not contain all information available regarding this patient. Last updated 18.[facility] Allergies No known active allergies Medications * [...] Encounters Date Type Department Care Team Description 02/25/2025 6:01 AM CDT - 02/25/2025 11:07 AM CDT Hospital Encounter [facility] JJ OP [address] [place] [address] Davy Decker MD [facility] Discharge Disposition: Home or Self Care 02/24/2025 Telephone [facility] IVR [address] [place] [address] Ho Buitrago RN Pre-op Instructions 02/22/2025 Refill [facility] - Neurology [address] [place] [address], [place] [address] Janie Wilson APRN-CNP Refill Request 02/06/2025 9:30 AM CDT [facility]rology [address] [place] [phone] Janie Wilson APRN-CNP Trigeminal neuropathy (Primary Dx) 02/06/2025 Travel 01/28/2025 9:30 AM CDT Office Visit [facility] - GI [address] [place] [address], [place] [address] Abdirashid Andrew MD Slow transit constipation (Primary Dx); 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); S/P TIPS (transjugular intrahepatic portosystemic shunt); Secondary esophageal varices without bleeding (HCC) 01/28/2025 8:00 AM CDT - 01/28/2025 11:59 PM CDT Hospital Encounter [facility] US [address] [place] [address] Abdirashid Andrew MD Discharge Disposition: Home or Self Care 01/28/2025 Orders Only [facility] IVR [address] [place] [address] Davy Decker MD S/P TIPS (transjugular intrahepatic portosystemic shunt) ; 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); Stenosis of other vascular prosthetic devices, implants and grafts, sequela 01/28/2025 Travel 01/07/2025 Refill [facility] - Neurology [address] [facility], [place] [address] Janie Wilson APRN-JAXSON Refill Request from Last 3 Months Immunizations [...] Answered Alcohol Use Standard Drinks/Week Comments Yes 2 (1 standard drink = 0.6 oz pur e alcohol) every other day AUDIT-C Answer Date Recorded Q1: How often do you have a drink containing alc ohol? 2-3 times a week 02/25/2025 Q2: How many drinks containi ng alcohol do you have on a typical day when you are drinking? 1 or 2 02/25/2025 Q3: How often do you have si x or more drinks on one occasion? Never 02/25/2025 PHQ-2 Answer Date Recorded Patient Health Questionnaire-2 Score 0 06/27/2023 Sex and Gender Information Value Date Recorded Sex Assigned at Not on file Legal Sex Male 5:23 PM DOCUMENT COORDINATOR Gender Identity Not on file Sexual Orientation Not on file Last Filed Vital Signs Vital Sign Reading Time Taken Comments Blood Pressure 134/81 02/25/2025 10:45 AM CDT Pulse 60 02/25/2025 10:45 AM CDT Temperature 36.1 C (96.9 F) 02/25/2025 10:00 AM CDT Respiratory Rate 14 02/25/2025 10:45 AM CDT Oxygen Saturation 99% 02/25/2025 10:45 AM CDT Inhaled Oxygen Concentration - - Weight 82.2 kg (181 lb 3.2 oz) 02/25/2025 6:34 A M CDT Height 180.3 cm (5' 11) 02/25/2025 6:34 AM CDT Body Mass Index 25.27 02/25/2025 6:34 AM CDT Plan of Treatment Upcoming Encounters Date Type Department Care Team (Late st Contact Info) Description 06/30/2025 1:00 PM CDT Appointment [facility] RAD ONC [address] [place] [phone] Cale Walden MD [address] [place] [phone] 06/30/2025 1:00 PM CDT Appointment [facility] RAD ONC [address] [place] [address] Mitchel Gustafson MD [facility] [address] [address] 08/12/2025 9:30 AM CDT Appointment [facility] [address] [place] [phone] Abdirashid Andrew MD [address] [place] [address] [address] [place] [address] 08/12/2025 11:00 AM CDT Office Visit [facility] - GI [address] [place] [address], [place] [phone] Abdirashid Andrew MD [address] [place] [address] [address] [place] [address] 10/02/2025 9:30 AM DOCUMENT COORDINATOR Office Visit [facility] - Neurology [address] [place] [address], [place] [phone] Janie Wilson, TURBO GENERATOR OILER-TANK OFFICER [address] [place] [address] [address] [place] [phone] Health Maintenance Due Date Last Done Comments MEDICARE AWV 12 MONTHS 1945 DTAP/TDAP/TD VACCINES (1 - Tdap) 01/06/1964 HEPATITIS B VACCINE (1 of 3 - Risk 3-dose series) 2005 Respiratory Syncytial Virus (RSV) Vaccine Pt: or over 60 yrs (1 - 1-dose 75+ series) 01/06/2020 PNEUMOCOCCAL VACCINE 50+ (2 of 2 - PPSV23) 09/02/2020 07/08/2020 COVID-19 VACCINE ( season) 2024 07/13/2021, 12/19/2020, 11/28/2020 DEPRESSION SCREENING [...] track( 9:27 AM CDT) No Maki Hernandez, LILIAN Note: Expected end date: ongoing Interventions: Your nurse will assess your risk for falls/injury each visit Make sure appropriate safety devices are available and within reach Be aware of medications that could predispose you to falling Wear non-skid/rubber sole footwear Keep personal items within easy reach Use some light at night in your room Procedures Procedure Name Priority Date/Time Associated Diagnosis Comments IR TIPS REVISION Routine 02/25/2025 8:45 AM CDT S/P TIPS (transjugular intrahepatic portosystemic shunt) 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) Stenosis of other vascular prosthetic devices, implants and grafts, sequela GLUCOSE - POINT OF CARE Routine 02/25/2025 6:33 AM CDT PT-INR [facility] STAT 02/25/2025 6:32 AM CDT S/P TIPS (transjugular intrahepatic portosystemic shunt) Portal hypertension with esophageal varices (HCC) 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) Secondary esophageal varices without bleeding (HCC) CBC W AUTO DIFFERENTIAL STAT 02/25/2025 6:32 AM CDT S/P TIPS (transjugular intrahepatic portosystemic shunt) Portal hypertension with esophageal varices (HCC) 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) Secondary esophageal varices without bleeding (HCC) HEPATIC FUNCTION PANEL STAT 02/25/2025 6:32 AM CDT S/P TIPS (transjugular intrahepatic portosystemic shunt) Portal hypertension with esophageal varices (HCC) 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) Secondary esophageal varices without bleeding (HCC) BASIC METABOLIC PANEL (CALCIUM TOTAL) STAT 02/25/2025 6:32 AM CDT S/P TIPS (transjugular intrahepatic portosystemic shunt) Portal hypertension with esophageal varices (HCC) 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) Secondary esophageal varices without bleeding (HCC) HEPATITIS B SURFACE AG QNT MONITORING 01/28/2025 [...] (HCC) from Last 3 Months Results * IR Tips Revision (02/25/2025 8:45 AM CDT) Anatomical Region Laterality Modality X-Ray Angiograph y 02/25/2025 1:19 PM CDT Impressions 02/25/2025 3:08 PM CDT Impression: Mild to moderate narrowing within the proximal region of the TIPS stent. Following intervention described above, interval improvement in luminal diameter and brisk flow through the TIPS stent as well as portosystemic gradient reduction from 6 mmHg to 4 mmHg. Follow up: Continue follow up with Hepatology with TIPS ultrasound. VIR will follow TIPS US findings. I, Dr. Davy Decker, was present and performed/supervised the entire procedure. Moderate sedation on this patient was ordered by me, administered intravenously in my presence, and monitored by the procedure nurse as an independent trained observer who was present throughout the procedure. The following parameters were monitored: oxygen saturation, heart rate, blood pressure, and response to care. Intra-service sedation start time was 8:18 AM and end time was 9:33 AM during which I was present. Total physician intra-service sedation time was 75 minutes. For details on pre moderate sedation and post moderate sedation patient evaluation, please review the evaluation forms in [facility]. For details on monitored clinical parameters during the intra-service sedation time, please review the procedure nurse documentation in [facility]. > Dictated by Keagan Santiago MD (Taxi Cab Driver) 02/25/2025 1:19 PM Davy Palmer DO have personally reviewed and interpreted this examination/study. > Interpreting Provider: Davy Decker DO on 02/25/2025 3:08 PM Narrative 02/25/2025 3:08 PM CDT History: Male with history of chronic HBV, cirrhosis and s/p TIPS placement in 2014 for variceal bleeding/ ascites. Most recent ultrasound demonstrates reduced velocities within proximal and mid segments of TIPS stent. Operators: 1.Attending - Davy Decker 2.Resident - Keagan Santiago Anesthesia: 1.Local anesthesia - 10 mL of 1% lidocaine 2.Intravenous conscious sedation - Versed 2 mg and Fentanyl 100 mcg Procedure: 1.Ultrasound-guided access of the right internal jugular vein. 2.Selective catheterization of the main portal vein and venogram. 3.Main portal vein and right atrium pressure measurements. 4.10 mm x 4 cm balloon angioplasty within the proximal region of the TIPS stent. 5.Post-revision hepatic venogram with pressure measurements within the right atrium and main portal vein Fluoroscopic time: 25.3 minutes Contrast: 30 mL of Isovue-300 Procedure in detail: The procedure, risks, and possible complications were explained to the patient in detail, and informed consent was obtained. The patient was brought to the angiography suite and placed supine on the procedure table. Hydraulic Mechanic radiograph of the abdomen was obtained, which demonstrated a TIPS in the right upper quadrant. The patient received intravenous Versed and Fentanyl for conscious sedation. A qualified radiology nurse monitored the patient s vital signs throughout the procedure. The right neck was prepped and draped in the usual sterile manner. Limited ultrasound of the right internal jugular vein demonstrated patency and compressibility. A montoya scale image was documented. After instillation of 1% lidocaine for local anesthesia, a small skin incision was made in the right lower neck. Under real time ultrasound guidance, the right internal jugular vein was accessed using a micropuncture needle. The needle entry was documented. After a series of exchanges, a 8-Zimbabwean vascular sheath was placed. Through a 0.035 Glidewire a 5 Zimbabwean SOS catheter was used to catheterize the proximal portion of the TIPS stent, and subsequently the Glidewire was advanced through the TIPS stent and into the main portal vein. A portogram was then performed which demonstrated mild to moderate narrowing within the proximal region of the TIPS stent as well as hepatopetal flow within the left portal vein. The Glidewire was then exchanged for a 0.035 glide advantage Glidewire. Over the glide advantage guidewire a 5 Zimbabwean SOS catheter was exchanged for a 5 Zimbabwean Kumpe catheter. Portal vein pressure measurements was performed through the Kumpe catheter measuring at 12 mmHg, and the 8 Zimbabwean vascular sheath positioned within right atrium, right atrial pressure measured at 6 mmHg for portosystemic gradient of 6 mmHg. Over the glide advantage guidewire the Kumpe catheter was removed and a 10 mm x 4 cm balloon was advanced and angioplasty was performed across the proximal region of the TIPS stent. The balloon was then exchanged for a Kumpe catheter and advanced into the main portal vein followed by portogram which demonstrated interval improvement in diameter and flow near the proximal portion of TIPS stent with brisk flow of contrast and reduced hepatopetal flow. Through the Kumpe catheter main portal vein pressure measurement was performed measuring at 11 mmHg while the right atrial pressure through the vascular sheath was measured at 7 mmHg for a postintervention portosystemic gradient of 4 mmHg. All the catheters and guidewires were then removed. The sheath was removed, and hemostasis was achieved with manual compression, and sterile dressing was applied. The patient tolerated the procedure well and was transferred to the holding area in stable condition. There were no immediate complications associated with the procedure. Procedure Note Davy Decker MD - 02/25/2025 History: Male with history of chronic HBV, cirrhosis and s/p TIPSplacement in 2015 for variceal bleeding/ ascites. Most recent ultrasound demonstrates reduced velocities within proximal and mid segments of TIPS stent. Operators: 1.Attending - Davy Decker 2.Resident - Keagan Santiago Anesthesia: 1.Local anesthesia - 10 mL of 1% lidocaine 2.Intravenous conscious sedation - Versed 2 mg and Fentanyl 100 mcg Procedure: 1.Ultrasound-guided access of the right internal jugular vein. 2.Selective catheterization of the main portal vein and venogram. 3.Main portal vein and right atrium pressure measurements. 4.10 mm x 4 cm balloon angioplasty within the proximal region of theTIPS stent. 5.Post-revision hepatic venogram with pressure measurements within the right atrium and main portal vein Fluoroscopic time: 25.3 minutes Contrast: 30 mL of Isovue-300 Procedure in detail: The procedure, risks, and possible complications were explained to the patient in detail, and informed consent was obtained. The patient was brought to the angiography suite and placed supine on the proceduretable. Hydraulic Mechanic radiograph of the abdomen was obtained, which demonstrated a TIPSin the right upper quadrant. The patient received intravenous Versed and Fentanyl for conscious sedation. A qualified radiology nurse monitored the patient s vital signs throughout the procedure. The right neck was prepped and draped in the usual sterile manner.Limited ultrasound of the right internal jugular vein demonstrated patency and compressibility. A montoya scale image was documented. After instillationof 1% lidocaine for local anesthesia, a small skin incision was made in the right lower neck. Under real time ultrasound guidance, the rightinternal jugular vein was accessed using a micropuncture needle. The needle entry was documented. After a series of exchanges, a 8-Zimbabwean vascular sheathwas placed. Through a 0.035 Glidewire a 5 Zimbabwean SOS catheter was used tocatheterize the proximal portion of the TIPS stent, and subsequently the Glidewirewas advanced through the TIPS stent and into the main portal vein. Aportogram was then performed which demonstrated mild to moderate narrowing withinthe proximal region of the TIPS stent as well as hepatopetal flow within the left portal vein. The Glidewire was then exchanged for a 0.035 glide advantage Glidewire. Over the glide advantage guidewire a 5 Zimbabwean SOS catheter was exchanged for a 5 Zimbabwean Kumpe catheter. Portal veinpressure measurements was performed through the Kumpe catheter measuring at 12mmHg, and the 8 Zimbabwean vascular sheath positioned within right atrium, right atrial pressure measured at 6 mmHg for portosystemic gradient of 6 mmHg. Over the glide advantage guidewire the Kumpe catheter was removed and a10 mm x 4 cm balloon was advanced and angioplasty was performed across the proximal region of the TIPS stent. The balloon was then exchanged for a Kumpe catheter and advanced into the main portal vein followed byportogram which demonstrated interval improvement in diameter and flow near the proximal portion of TIPS stent with brisk flow of contrast and reduced hepatopetal flow. Through the Kumpe catheter main portal vein pressure measurement was performed measuring at 11 mmHg while the right atrial pressure through the vascular sheath was measured at 7 mmHg for a postintervention portosystemic gradient of 4 mmHg. All the catheters and guidewires were then removed. The sheath wasremoved, and hemostasis was achieved with manual compression, and steriledressing was applied. The patient tolerated the procedure well and wastransferred to the holding area in stable condition. There were no immediate complications associated with the procedure. Impression: Mild to moderate narrowing within the proximal region of the TIPS stent. Following intervention described above, interval improvementin luminal diameter and brisk flow through the TIPS stent as well as portosystemic gradient reduction from 6 mmHg to 4 mmHg. Follow up: Continue follow up with Hepatology with TIPS ultrasound. VIR will follow TIPS US findings. I, Dr. Davy Decker, was present and performed/supervised the entire procedure. Moderate sedation on this patient was ordered by me, administered intravenously in my presence, and [facility] as an independent trained observer who was present throughout the procedure. The following parameters were monitored: oxygen saturation, heart rate, blood pressure, and response to care. Intra-service sedation start time was 8:18 AM and end time was 9:33 AM during which I waspresent. Total physician intra-service sedation time was 75 minutes. For detailson pre moderate sedation and post moderate sedation patient evaluation,please review the evaluation forms in EPIC. For details on monitored clinical parameters during the intra-service sedation time, please review the procedure nurse documentation in [facility]. > Dictated by Keagan Santiago MD (Taxi Cab Driver) 02/25/2025 1:19 PM IDavy DO have personally reviewed and interpreted this examination/study. > Interpreting Provider: Davy Decker DO on 02/25/2025 3:08 PM Davy Decker MD IR ORDERABLES Final Result * (ABNORMAL) GLUCOSE - POINT OF CARE (02/25/2025 6:33 AM CDT) Glucose WB/POC 144(H) 70 - 99 mg/dL 02/25/2025 6:37 AM CDT [facility] Specimen Type Cap Fingerstick 2024 6:37 AM CDT [facility] Blood BLOOD SPECIMEN / Unknown 02/25/2025 6:33 AM CDT 02/25/2025 6:37 AM CDT Davy Decker MD LAB - POINT OF CARE ORDERABLE S Final Result [facility] [address] [place] [phone], [facility] [phone] * PT-INR [facility] (02/25/2025 6:32 AM CDT) PT 12.8 12.1 - 14.8 Seconds 02/25/2025 7:03 AM CDT [facility] INR 1.0 See Comment 02/25/2025 7:03 AM T [facility] Comment:The suggested therap eutic range for standard coumadin (warfarin) therapy is an INR of 2.0-3.0. For high-risk patients (Mechanical Mitral Valve Prosthesis, etc.), the suggested prophylactic therapeutic range is an INR of 2.5-3.5. Blood BLOOD SPECIMEN / Unknown Venipuncture / Unknown 02/25/2025 6:32 AM CDT 02/25/2025 6:35 AM CDT Whitney Whitmore TURBO GENERATOR OILER-TANK OFFICER LAB - COAGULA TION ORDERABLES Final Result [facility] [address] [place] [address], [facility] [phone] * (ABNORMAL) CBC W AUTO DIFFERENTIAL (02/25/2025 6:32 AM CDT) Only the most recent of2 resultswithin the time period is included. WBC 3.6(L) 4.0 - 10.7 x10E9/L 02/25/2025 6:47 AM [facility] RBC Count 4.38 4.30 - 5.80 x10E12/L 02/25/2025 6:47 AM [facility] Hemoglobin 13.3 13.3 - 17.5 g/dL 02/25/2025 6:47 AM [facility] Hematocrit 39.5 38.7 - 51.1 % 02/25/2025 6:47 AM [facility] MCV 90.2 80.0 - 98.0 fL 02/25/2025 6:47 AM [facility] MCH 30.4 26.7 - 33.6 pg 02/25/2025 6:47 AM [facility] MCHC 33.7 31.7 - 36.3 g/dL 02/25/2025 6:47 AM [facility] RDW-CV 13.3 11.3 - 14.8 % 02/25/2025 6:47 AM [facility] Platelet Count 131(L) 150 - 420 x10E9/L 02/25/2025 6:47 AM [facility] MPV 9.9 7.8 - 11.4 fL 02/25/2025 6:47 AM [facility] Neutrophil % 58.4 41.0 - 74.0 % 02/25/2025 6:47 AM [facility] Lymphocyte % 26.3 17.0 - 47.0 % 02/25/2025 6:47 AM [facility] Monocyte % 8.9 3.0 - 11.0 % 02/25/2025 6:47 AM [facility] Eosinophil % 5.6 0.0 - 7.0 % 02/25/2025 6:47 AM [facility] Basophil % 0.8 0.0 - 1.6 % 02/25/2025 6:47 AM [facility] Immature Granulocytes % 0.0 0.0 - 1.0 % 02/25/2025 6:47 AM [facility] Neutrophil Absolute 2.09 1.60 - 7.50 x10E9/L 02/25/2025 6:47 AM [facility] Lymphocyte Absolute 0.94(L) 1.00 - 4.40 x10E9/L 02/25/2025 6:47 AM [facility] Monocyte Absolute 0.32 0.15 - 1.00 x10E9/L 02/25/2025 6:47 AM [facility] Eosinophil Absolute 0.20 0.00 - 0.60 x10E9/L 02/25/2025 6:47 AM [facility] Basophil Absolute 0.03 0.00 - 0.13 x10E9/L 02/25/2025 6:47 AM [facility] Blood BLOOD SPECIMEN / Unknown Venipuncture / Unknown 02/25/2025 6:32 AM CDT 02/25/2025 6:41 AM CDT us Whitney Whitmore TURBO GENERATOR OILER-TANK OFFICER LAB - HEMATOL OGY ORDERABLES Final Result Performing Organization Address [facility]/State/[facility] Co de Phone Number [address] [phone] [phone] * (ABNORMAL) BASIC METABOLIC PANEL (CALCIUM TOTAL) (02/25/2025 6:32 AM CDT) BUN 17 7 - 26 mg/dL 02/25/2025 7:19 AM [facility] Creatinine 0.94 0.71 - 1.16 mg/dL 02/25/2025 7:19 AM [facility] Sodium 141 136 - 145 mmol/L 02/25/2025 7:19 AM [facility] Potassium 4.0 3.5 - 4.5 mmol/L 02/25/2025 7:19 AM [facility] Chloride 109(H) 98 - 107 mmol/L 02/25/2025 7:19 AM [facility] CO2 21(L) 22 - 29 mmol/L 02/25/2025 7:19 AM [facility] Glucose 152(H) 70 - 99 mg/dL 02/25/2025 7:19 AM [facility] Calcium 8.6 8.4 - 10.2 mg/dL 02/25/2025 7:19 AM [facility] Anion Gap 11 6 - 16 02/25/2025 7:19 AM [facility] BUN/Creatinine Ratio 18 7 - 23 02/25/2025 7:19 AM [facility] Osmolality Calculated 297(H) 275 - 295 mOsm/kg 02/25/2025 7:19 AM [facility] eGFR by CKD-EPI 82(L) >=90 mL/min/1.7 3 m2 02/25/2025 7:19 AM [facility] Blood BLOOD SPECIMEN / Unknown Venipuncture / Unknown 02/25/2025 6:32 AM CDT 02/25/2025 6:41 AM T Whitney Whitmore TURBO GENERATOR OILER-TANK OFFICER LAB - PAPER COLORER RY ORDERABLES Final Result [address] [address], [facility] [phone] * HEPATIC FUNCTION PANEL (02/25/2025 6:32 AM CDT) Protein Total 6.4 6.0 - 8.3 g/dL 025 7:19 AM [facility] Albumin 3.6 3.4 - 5.0 g/dL 02/25/2025 7:19 AM [facility] Bilirubin Total 0.4 0.2 - 1.2 mg/dL 02/13 7:19 AM [facility] Bilirubin Conjugated 0.2 0.1 - 0.5 mg/dL 02/25/2025 7:19 AM [facility] Bilirubin Unconjugated 0.2 Unconjugated Bilirubin is a calculated value: Reference ranges have not been established. mg/dL 02/25/2025 7:19 AM [facility] Alkaline Phosphatase 99 40 - 150 U/L 02/25/2025 7:19 AM [facility] ALT 16 5 - 55 U/L 02/25/2025 7:19 AM [facility] AST 27 5 - 34 U/L 02/25/2025 7:19 AM [facility] Albumin/Globulin Ratio 1.3 1.1 - 2.3 02/25/2025 7:19 AM [facility] Blood BLOOD SPECIMEN / Unknown Venipuncture / Unknown 02/25/2025 6:32 AM CDT 02/25/2025 6:41 AM CDT Whitney Whitmore TURBO GENERATOR OILER-TANK OFFICER LAB - PAPER COLORER RY ORDERABLES Final Result [facility] [address] [place] [phone], [facility] [phone] * HEPATITIS B SURFACE AG QNT MONITORING (01/28/2025 10:58 AM CDT) Hepatitis B Virus Surface Antigen Quantitative <0.05 IU/mL Verical Comment: REFERENCE RANGE: <0.05 IU/mL The HBsAg [...] treatment. For additional information, please refer to http://education.[employer]/faq/KYZ016 (This link is being provided for informational/ educational purposes only.) Test Performed at: [facility] [address] [place] [address] GABY RAMOS MD,PHD,RODOLFO 01/28/2025 10:5 8 AM CDT 01/28/2025 10:58 AM CDT Abdirashid Andrew MD LAB - CHEMISTRY ORDERABLES Fin al Result Performing Organization Address [facility] de Phone Number [facility] [address] [place] [phone] * MICROALB/CREAT RATIO URINE RANDOM PANEL (01/28/2025 [...] within a diagnostic category. Test Performed at: [facility] [address] [place] [address] KERA JUSTICE MD 01/28/2025 10:5 8 AM CDT 01/28/2025 10:58 AM CDT Abdirashid Andrew MD LAB - URINE CHEMISTRY ORDERABL ES Final Result Performing Organization Address [facility] [place] [address] * (ABNORMAL) COMPREHENSIVE METABOLIC PANEL (01/28/2025 10:58 [...] 46 U/L [facility] Comment: Test Performed at: [facility] [address] [place] [address] KERA JUSTICE MD 01/28/2025 10:5 8 AM CDT 01/28/2025 10:58 AM CDT us Abdirashid Andrew MD LAB - CHEMISTRY ORDERABLES Fin al Result Performing Organization Address City/State/[facility] Co de Phone Number [facility] [address] [place] [address] * US Tips W Abdomen Limited (01/28/2025 [...] cholecystectomy. > Dictated by Ashish Ward MD, (vice president digital strategist). > Dictated by Ashish Ward MD (Taxi Cab Driver) 01/28/2025 9:39 AM IEliana MD have personally reviewed and interpreted this examination/study. > Interpreting Provider: Eliana Leary MD on 01/28/2025 1:56 PM Narrative 01/28/2025 1:56 PM CDT PROCEDURE: US TIPS W ABDOMEN LIMITED, DATE/TIME OF EXAM: 01/28/2025 9:23 AM, LOCATION [facility] INDICATION: B18.1: Chronic hepatitis B without delta [...] TIPS W ABDOMEN LIMITED, DATE/TIME OF EXAM: 59:23 AM, LOCATION [facility] INDICATION: B18.1: Chronic hepatitis B without delta [...] by Ashish Ward MD, MD (vice president digital strategist). > Dictated by Ashish Ward MD (Taxi Cab Driver) 01/28/2025 9:39 AM I, Eliana Leary MD have personally reviewed and interpreted this examination/study. > Interpreting Provider: Eliana Leary MD on 01/28/2025 1:56 PM Abdirashid Andrew MD ORDERABLES Final Result from Last 3 Months Insurance MEDICARE [facility] Teams Aircraft Armorer Relationship Specialty Start Date End Date Cesario Wilkinson MD [address] [place] [phone] PCP - General 01/08/19 Mitchel Gustafson MD [address] [place] [phone] Neurological Surgery 05/19/20 Cale Walden MD [address] [place] [address] Radiation Oncology 05/19/20
--- OUTSIDE RECORDS SUMMARY | 2025-03-19 11:55 | XMS_ITS | Encounter Summary ---
Author Organization [facility] Address [address] [place] [address] Care Team Providers Care Plate Straightener Name Role Phone Cesario Wilkinson MD Primary Care Provider Mitchel Gustafson MD Unavailable [phone] Cale Walden MD Unavailable [phone] Reason for Visit * Reason Onset Date Comments Pre-op Instructions 02/24/2025 Encounter Details Date Type Department Care Team (Late st Contact Info) Description 02/24/2025 Telephone [facility] IVR [address] [place] [address] Ho Buitrago RN Pre-op Instructions Social History Tobacco Use Types Packs/Day Years [...] on file 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 2-3 times a week 02/25/2025 6:43 AM PUJAT Lisa Hart RN Q2: How many drinks containing alcohol do you have on a typical day when you are drinking? 1 or 2 02/25/2025 6:43 AM PUJAT Fernando Hart RN Q3: How often do you have six or more drinks on one occasion? Never 02/25/2025 6:43 AM PUJAT Lisa Hart RN * Audit-C Score Answer Date of Assessment Author 3 02/25/2025 6:43 AM PUJAT Lisa Hart RN * Is person deaf or have serious [...] of Assessment Author No 07/27/2023 2:57 PM PUJAT Silvano Mckinney RN documented as of this encounter Mental Status * Does person have difficulty concentrating/remembering/making decisions? Answer Entry Date Author No 07/27/2023 2:57 PM CDT Silvano Mckinney RN documented in this encounter Miscellaneous Notes * Telephone Encounter - Ho Buitrago RN - 02/24/2025 1:41 PM CDT Patient instructed to report to [facility] at 0600 for scheduled 0730 appointment, NPO after midnight, must have responsible adult present for transportation following procedure. documented in this encounter Plan of Treatment Upcoming Encounters Date Type Department Care Team (Lupillo st Contact Info) Description 06/30/2025 1:00 PM CDT Appointment [facility] ONC [address] [place] [address] Cale Walden MD [address] [place] [address] 06/30/2025 1:00 PM CDT Appointment [facility] [address] [place] [address] Mitchel Gustafson MD [address] [place] [address] 2L [place] [address] 08/12/2025 9:30 AM CDT Appointment [facility] [address] [place] [phone] Abdirashid Andrew MD [address] [place] [address] 2[address] [place] [address] 08/12/2025 11:00 AM CDT Office Visit [facility] - GI [address] [place] [address], [place] [phone] Abdirashid Andrew MD [address] [place] [address] [address] [place] [address] 10/02/2025 9:30 AM FINANCIAL SECRETARY Office Visit [facility] - Neurology [address] [place] [address], [place] [phone] Janie Wilson, CHACORTA-JAXSON [address] [place] [address] [address] [place] [phone] documented as of this encounter Goals Goal Patient Goal Type Associated Problems Recent Progress Patient-Stated? Author Medication Management General On track( 025 9:27 AM CDT) Maki Patel, RN Note: Expected end date: ongoing Interventions: Take all medications as prescribed Let your doctor know right away about any changes in your medications Make sure to request a refill of your medication at least one week prior to your last dose Safety General On track( 025 9:27 AM CDT) Maki Patel RN Note: Expected end date: ongoing Interventions: [...] on filedocumented in this encounter Care Teams Plate Straightener Relationship Specialty Start Date End Date Cesario Wilkinson MD [address] [place] [address] PCP - General 01/08/19 Mitchel Gustafson MD [address] [place] [address] Neurological Surgery 05/19/20 Cale Wadlen MD [address] [place] [address] Radiation Oncology 05/19/20 documented as of this encounter
--- OUTSIDE RECORDS SUMMARY | 2025-03-19 11:55 | XMS_ITS | Encounter Summary ---
Author Organization [facility] Address [address] [facility] [place] [address] Care Team Providers Care Hogshead Wrecker Name Role Phone Cesario Wilkinson MD Primary Care Provider Mitchel Gustafson MD Unavailable Cale Walden MD Unavailable [phone] Encounter Details Date Type Department Care Team (Late st Contact Info) Description 02/13/2024 Telephone [facility] [place] [address] Janie Wilson APRN-OUT OF SCHOOL HOURS CARE WORKER [address] [place] [address] [place] [address] Social History Tobacco Use Types [...] on file 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 Gender Identity Not on file Sexual Orientation [...] Info) Description 06/30/2025 1:00 PM CDT Appointment [facility] [address] [place] [address] Cale Walden MD [address] [place] [address] 06/30/2025 1:00 PM CDT Appointment [facility] [address] [place] [phone] Mitchel Gustafson MD [address] [place] [address] [place] [address] 08/12/2025 9:30 AM CDT Appointment [facility] [address] [place] [address] Abdirashid Andrew MD [address] [facility] 2L [place] [address] 08/12/2025 11:00 AM CDT Office Visit [facility] - GI [address] [place] [address], [place] [phone] Abdirashid Andrew MD [facility] 2L [place] [address] 10/02/2025 9:30 AM BASTING CLEANER Office Visit [facility] - Neurology [address] [place] [address], [place] [phone] Janie Wilson, DIRECTOR FRAUD-OUT OF SCHOOL HOURS CARE WORKER [address] [place] [address] 1L [place] [phone] documented as of this encounter Goals Goal Patient Goal Type Associated Problems Recent Progress Patient-Stated? Author Medication Management General On track( 9:27 AM CDT) No Maki Hernandez, LILIAN Note: Expected end date: ongoing Interventions: Take all medications as prescribed Let your doctor know right away about any changes in your medications Make sure to request a refill of your medication at least one week prior to your last dose Safety General On track( 9:27 AM CDT) No Maki Hernandez RN Note: Expected end date: ongoing Interventions: [...] on filedocumented in this encounter Care Teams Hogshead Wrecker Relationship Specialty Start Date End Date Cesario Wilkinson MD [address] [place] [phone] PCP - General 01/08/19 Mitchel Gustafson MD [address] [place] [place] [phone] Neurological Surgery 05/19/20 Cale Walden MD [address] [place] [address] Radiation Oncology 05/19/20 documented as of this encounter
--- NOTE | 2025-03-19 13:03 | ED_ITS ---
HPI - General Adult General Chief complaint: Dizziness Stated complaint: dizziness, confusion x3 days Time Seen by Provider: 03/19/25 12:42 History of Present Illness HPI narrative: 80-year-old male presenting to the emergency department for evaluation for increased balance issues. Patient states this issue has been ongoing for the last few months but feels that has been worsening lately. Patient has also had 2 episodes of confusion over the last few days. Patient states the dizziness is worsened with turning his head rapidly. 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 While at rest in the bed patient denies any lightheaded or dizziness. Patient denies any associated chest pain or shortness of breath. Patient denies any coughs colds fevers nausea vomiting or diarrhea. Patient did initially present to urgent care and was referred to the emergency department for further evaluation. Patient was concerned he has had some increased confusion over the last few weeks and increased shuffling gait over the last month. Patient denies any acute neurologic changes. Related Data Home Medications ?Medication ?Instructions ?Recorded ?Confirmed ?Last Taken ?Type tenofovir disoproxil fumarate 300 300 mg PO DAILY 11/20/19 07/31/24 09/05/22 History mg tablet (Viread) multivitamin 1 tablet PO DAILY 11/27/19 07/31/24 09/05/22 History polyethylene glycol 3350 17 17 g PO DAILY PRN Constipation 05/25/21 07/31/24 09/05/22 History gram/dose oral powder (Miralax) gabapentin 400 mg capsule 400 mg PO QID 01/10/22 07/31/24 09/06/22 06:30 History oxcarbazepine 300 mg tablet 300 mg PO TID 02/10/25 Unknown History Allergies Allergy/AdvReac Type Severity Reaction Status Date / Time No Known Allergies Allergy Verified 03/19/25 12:51 Review of Systems 2 Review of Systems: All systems reviewed & are unremarkable except as noted in HPI and below PMFSH Past Medical History Medical History Vasomotor rhinitis Leucopenia History of colon polyps History of gynecomastia benign 03/2007 Multiple lipomas Localized swelling, mass and lump, upper limb, bilateral Lumbar spondylosis Chronic constipation MYRANDA (obstructive sleep apnea) Type 2 diabetes mellitus without complication, without long-term current use of insulin Trigeminal neuralgia of left side of face s/p stereo tactic radiation surgery Thrombocytopenia Chronic hepatitis B Cirrhosis of liver due to hepatitis B History of kidney stones BPH w/o urinary obs/LUTS Edema of both legs Dyslipidemia Surgical History Surgical History History of back surgery 1995 History of hernia repair 1950 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 Hx of transurethral resection of prostate 2019 History of lumbosacral spine surgery 03/05/2018 Family History Family History Mother Hypertension Sibling Family history of malignant neoplasm of esophagus Other Family history of cardiovascular disease Family history of kidney disease Social History Social History Smoking status: Never smoker Second hand tobacco smoke exposure: No Additional smoking assessment comments: cigarettes smoke exposure as a child from father Alcohol intake: current Drinks per week: 3 Alcohol use details: WINE Substance use: never Substance use type: does not use Lack of Transportation: No Lack of Food: Never True Current Housing: I Have Housing Concerned About Future Housing: No Difficulty Paying Gas/Electric Bills: No Difficulty Paying for Meds: No Currently Unemployed: No Education: Bachelor's Degree Difficulty w/ Childcare or Family Care: No Living arrangements: with family Spiritual care concerns: No Exam 2 Narrative: APPEARANCE: Well appearing, no pain, no distress, well-nourished. HEAD: normocephalic, atraumatic. EYES: PERRLA/EOMI, conjunctivae clear. NOSE: Normal no drainage EARS:TMS clear with good light reflex. THROAT: Pharynx clear, no exudate. NECK: Supple. No adenopathy, no masses. RESPIRATORY: Airway patent, respirations nonlabored. Clear to auscultation bilaterally, no rales, rhonchi, wheezing. CARDIOVASCULAR: Regular rate and rhythm without murmurs rubs or gallops. ABDOMINAL: Soft, nontender, nondistended, normal bowel sounds MUSCULOSKELETAL: Moves all extremities. Strength/ROM intact, No edema, No calf tenderness. NEURO: Alert. Cranial nerves II through XII intact. Good gait. Good coordination SKIN: Warm, dry. Normal Color Course Vital Signs Vital signs: Vital Signs Temperature 97.5 F L 03/19/25 11:55 Pulse Rate 54 L 03/19/25 11:55 Respiratory Rate 16 03/19/25 11:55 Blood Pressure 127/63 03/19/25 11:55 Pulse Oximetry 100 03/19/25 11:55 Oxygen Delivery Room Air 03/19/25 11:55 Temperature 97.5 F L 03/19/25 11:55 Pulse Rate 58 L 03/19/25 16:15 Respiratory Rate 13 03/19/25 16:15 Blood Pressure 121/72 03/19/25 16:25 Pulse Oximetry 100 03/19/25 15:30 Oxygen Delivery Room Air 03/19/25 11:55 Medical Decision Making MDM Narrative Medical decision making narrative: 80-year-old male present to the emergency department for evaluation for gait instability and balance issues. Patient was treated with meclizine and did feel improved. Patient is afebrile with no leukocytosis and hemoglobin of 13.5. INR is 1.2, no acute abnormalities on his CMP patient does have a lactic acid of 2.5. Urine was negative for infection and patient was negative for influenza RSV and for COVID, chest x-ray shows no acute cardiopulmonary abnormality. Head CT shows no acute intracranial abnormality. Differential Diagnosis Differential Diagnosis: UTI, pneumonia, COVID, RSV, influenza, TIA, CVA, vertigo, movement disorder Vital Signs Vital Signs: Vital Signs Temperature 97.5 F L 03/19/25 11:55 Pulse Rate 54 L 03/19/25 11:55 Respiratory Rate 16 03/19/25 11:55 Blood Pressure 127/63 03/19/25 11:55 Pulse Oximetry 100 03/19/25 11:55 Oxygen Delivery Room Air 03/19/25 11:55 Temperature 97.5 F L 03/19/25 11:55 Pulse Rate 58 L 03/19/25 16:15 Respiratory Rate 13 03/19/25 16:15 Blood Pressure 121/72 03/19/25 16:25 Pulse Oximetry 100 03/19/25 15:30 Oxygen Delivery Room Air 03/19/25 11:55 Lab Data Lab results reviewed: Yes I reviewed the patient's lab results. 03/19/25 13:03 03/19/25 13:03 Labs: Lab Results 03/19/25 03/19/25 03/19/25 Range/Units 13:03 13:58 15:22 WBC 3.8 L (4.5-10.0) K/mm3 RBC 4.38 L (4.6-6.20) M/mm3 Hgb 13.5 L (14.0-18.0) g/dL Hct 40.4 L (42.0-52.0) % MCV 92.2 (80-100) fl MCH 30.8 (26-34) pg MCHC 33.4 (32-36) g/dl RDW 13.2 (11.5-14.5) % Plt Count 139 L (150-375) k/mm3 MPV 9.6 (7.4-10.4) fl Immature Gran % (Auto) 0.3 (0-0.5) % Neut % (Auto) 57.6 (45.5-73.1) % Lymph % (Auto) 26.8 (18.3-44.2) % [place] % (Auto) 11.9 H (2.6-8.5) % Eos % (Auto) 2.9 (0-4.4) % Baso % (Auto) 0.5 (0.2-1.2) % Lymph # (Auto) 1.01 (0.9-3.2) K/mm3 [place] # (Auto) 0.5 (0.1-0.6) K/mm3 Eos # (Auto) 0.1 (0-0.3) K/mm3 Baso # (Auto) 0.0 (0.0-0.1) K/mm3 Abs Immat Gran (auto) 0.01 (0.00-0.031) K/mm3 Absolute Neuts (auto) 2.2 (1.3-6.7) K/mm3 Absolute Nucleated RBC 0.000 (0.0-0.012) K/mm3 Nucleated RBC % 0.0 (0.0-0.2) % PT 14.9 H (11.1-14.7) Seconds INR 1.2 APTT 31.5 (22.3-36.8) Seconds Sodium 138 (137-145) mmol/L Potassium 4.2 (3.4-5.0) mmol/L Chloride 105 (98-107) mmol/L Carbon Dioxide 27 (22-30) mmol/L Anion Gap 6 (4-12) mmol/L BUN 12 (9-20) mg/dL Creatinine 0.93 (0.7-1.3) mg/dL Estim Creat Clear Calc 59 ml/min Estimated GFR > 60 (59 - ) Glucose 129 H (65-110) mg/dL Lactic Acid 2.5 H 2.3 H (0.7-2.0) mmol/L Calcium 9.8 (8.4-10.2) mg/dL Total Bilirubin 0.6 (0.2-1.3) mg/dL AST 37 (17-59) U/L ALT 21 (6-50) U/L Alkaline Phosphatase 96 (38-126) U/L Total Protein 6.8 (6.3-8.2) g/dL Albumin 3.9 (3.5-5.1) g/dL Urine Color Yellow (Yellow) Urine Appearance Clear (Clear) Urine pH 6.5 (5.0-9.0) Ur Specific Strang 1.018 (1.001-1.035) Urine Protein Negative (Negative) mg/dL Urine Glucose (UA) 3+ H (Negative) mg/dL Urine Ketones Trace H (Negative) mg/dL Ur Blood (Man) Negative (Negative) Urine Nitrate Negative (Negative) Urine Bilirubin Negative (Negative) Urine Urobilinogen 4.0 H (<2.0) mg/dL Leukocyte Esterase Rfl Negative (Negative) RICCI/UL Influenza A (RT-PCR) Negative (Negative) Influenza B (RT-PCR) Negative (Negative) RSV (RT-PCR) Negative (Negative) SARS-CoV-2 RNA (RT-PCR) Negative (Negative) Imaging Data Radiologist's impression: Impressions Head CT 03/19/25 13:16 Impression: No significant abnormality seen. Chest X-Ray 03/19/25 13:31 IMPRESSION: 1: NO ACUTE CARDIOPULMONARY DISEASE. Discharge Plan Discharge Clinical Impression: Vertigo Patient Disposition: Home Condition: Stable Instructions: Antibiotic Form, Benign Paroxysmal Positional Vertigo (ED) Additional Instructions: Meclizine as needed for vertigo. Have close follow-up with your primary care physician. I did offer admission for an MRI but you preferred to have outpatient follow-up. Call your primary care physician to have the outpatient MRI scheduled. Have close follow-up with your neurologist. Patient Language: Nicaraguan Prescriptions: New meclizine 25 mg tablet 25 mg PO BID PRN (Reason: dizziness) 7 Days Qty: 14 0RF No Action oxcarbazepine 300 mg tablet 300 mg PO TID ipratropium bromide 42 mcg (0.06 %) spray,non-aerosol 2 spray intranasal TID Qty: 15 1RF Rx Instructions: administer into each nostril multivitamin Tablet 1 tablet PO DAILY gabapentin 400 mg capsule 400 mg PO QID polyethylene glycol 3350 [Miralax] 17 gram/dose powder 17 g PO DAILY PRN (Reason: Constipation) lisinopril 2.5 mg tablet 2.5 mg PO DAILY Qty: 90 2RF tenofovir disoproxil fumarate [Viread] 300 mg tablet 300 mg PO DAILY Rx Instructions: take 1 tablet by oral route every day with a meal (DME) lancets 28 gauge misc See Rx Instructions .ROUTE .MEDSUPPLY Qty: 25 0RF Rx Instructions: As directed (DME) blood sugar diagnostic Strip See Rx Instructions .ROUTE .MEDSUPPLY Qty: 100 1RF Rx Instructions: check blood Sugars q.day As directed lancets 33 gauge misc See Rx Instructions miscellaneous DAILY Qty: 100 2RF Dose Instruction: USE TO CHECK BLOOD SUGAR ONCE DAILY. E11.9 Rx Instructions: USE TO CHECK BLOOD SUGAR ONCE DAILY. E11.9 miscellaneous daily; glipizide 2.5 mg tablet extended release 24hr 2.5 mg PO DAILY Qty: 90 1RF metformin 500 mg tablet extended release 24 hr 1,000 mg PO BID Qty: 360 1RF atorvastatin 20 mg tablet 20 mg PO QHS Qty: 90 1RF Follow-up/Referrals: Sonia Wilkinson MD [Primary Care Provider] -
[2025-03-19 13:12] LABS: Basophils Percent Auto 0.5 % (0.2-1.2); Eosinophils Absolute Auto 0.1 K/mm3 (0-0.3); Eosinophils Percent Auto 2.9 % (0-4.4); Hematocrit 40.4 % (42.0-52.0); Hemoglobin 13.5 g/dL (14.0-18.0); Immature Granulocyte Absolute 0.01 K/mm3 (0.00-0.031); Immature Granulocyte Percent A 0.3 % (0-0.5); Lymphocytes Absolute Auto 1.01 K/mm3 (0.9-3.2); Lymphocytes Percent Auto 26.8 % (18.3-44.2); Mean Corpuscular HGB Conc 33.4 g/dl (32-36); Mean Corpuscular Hemoglobin 30.8 pg (26-34); Mean Corpuscular Volume 92.2 fl (80-100); Mean Platelet Volume 9.6 fl (7.4-10.4); Monocytes Absolute Auto 0.5 K/mm3 (0.1-0.6); Monocytes Percent Auto 11.9 % (2.6-8.5); Neutrophils Absolute Auto 2.2 K/mm3 (1.3-6.7); Neutrophils Percent Auto 57.6 % (45.5-73.1); Platelet Count Result 139 k/mm3 (150-375); Red Blood Count 4.38 M/mm3 (4.6-6.20); Red Cell Distribution Width 13.2 % (11.5-14.5); White Blood Count 3.8 K/mm3 (4.5-10.0)
[2025-03-19 13:21] LABS: Alanine Aminotransferase 21 U/L (6-50); Albumin Level 3.9 g/dL (3.5-5.1); Alkaline Phosphatase 96 U/L (38-126); Anion Gap 6 mmol/L (4-12); Aspartate Amino Transferase 37 U/L (17-59); Bilirubin,Total 0.6 mg/dL (0.2-1.3); Blood Urea Nitrogen 12 mg/dL (9-20); Calcium 9.8 mg/dL (8.4-10.2); Carbon Dioxide 27 mmol/L (22-30); Chloride 105 mmol/L (98-107); Estimated CRCL calculation 59 ml/min; Estimated Glomerular Filt Rate > 60; Glucose 129 mg/dL (65-110); Potassium 4.2 mmol/L (3.4-5.0); Sodium 138 mmol/L (137-145); Total Protein 6.8 g/dL (6.3-8.2)
[2025-03-19 13:27] LABS: Lactic Acid Reflex 2.5 mmol/L (0.7-2.0)
[2025-03-19 13:35] LABS: INR 1.2; Prothrombin Time 14.9 Seconds (11.1-14.7)
[2025-03-19 13:36] LABS: Partial Thromboplastin Time 31.5 Seconds (22.3-36.8)
--- OUTSIDE RECORDS SUMMARY | 2025-03-19 13:42 | XMS_ITS | Encounter Summary ---
Author Organization [facility] Address [address] [place] [address] Care Team Providers Care Signal System Testing Maintainer Name Role Phone Cesario Wilkinson MD Primary Care Provider Mitchel Gustafson MD Unavailable Cale Walden MD Unavailable [phone] Encounter Details Date Type Department Care Team (Late st Contact Info) Description 02/13/2024 Telephone [facility] [place] [address] Janie Wilson APRN-[employer] SPORTS COACH [address] [place] [address] [place] [address] Social History Tobacco Use Types [...] on file 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 Gender Identity Not on file Sexual Orientation [...] Info) Description 06/30/2025 1:00 PM CDT Appointment [facility] [address] [place] [address] Cale Walden MD [address] [place] [address] 06/30/2025 1:00 PM CDT Appointment [facility] [address] [place] [phone] Mitchel Gustafson MD [address] [place] [place] [address] [place] [address] 08/12/2025 9:30 AM CDT Appointment [facility] [address] [place] [address] Abdirashid Andrew MD [address] [facility] 2L [place] [address] 08/12/2025 11:00 AM CDT Office Visit [facility] - GI [address] [place] [address], [place] [phone] Abdirashid Andrew MD [facility] 2L [place] [address] 10/02/2025 9:30 AM CROSSBAR FRAME WIRER Office Visit [facility] - Neurology [address] [place] [address], [place] [phone] Janie Wilson, CHUCK BONER-M[employer] SPORTS COACH [address] [place] [address] 1L [place] [phone] documented as of this encounter Goals Goal [...] on filedocumented in this encounter Care Teams Signal System Testing Maintainer Relationship Specialty Start Date End Date Cesario Wilkinson MD [address] [place] [phone] PCP - General 01/08/19 Mitchel Gustafson MD [address] [place] [phone] Neurological Surgery 05/19/20 Cale Walden MD [address] [place] [address] Radiation Oncology 05/19/20 documented as of this encounter
--- OUTSIDE RECORDS SUMMARY | 2025-03-19 13:42 | XMS_ITS | Clinical Summary ---
Author Organization [facility] Address [address] [place] [address] Care Team Providers Care Assistant Signal Maintainer Name Role Phone Cesario Wilkinson MD Primary Care Provider Mitchel Gustafson MD Unavailable [phone] Cale Walden MD Unavailable Source Comments [facility],non-owned Affiliates and Associated Physician Practices is amultiple site organization consisting of ambulatory clinics and hospital sitesin [place], [place], [place] and [place]. This disclosure is being madepursuant to the Care Everywhere program and may not contain all information available regarding this patient. Last updated 18.[facility] Allergies No known active allergies Medications * [...] - 02/25/2025 11:07 AM CDT Hospital Encounter [facility] JJ OP [address] [place] [address] Davy Decker MD [facility] Discharge Disposition: Home or Self Care 02/24/2025 Telephone [facility] IVR [address] [place] [address] oH Buitrago RN Pre-op Instructions 02/22/2025 Refill [facility] - Neurology [address] [place] [address], [place] [address] Janie Wilson APRN-CNP Refill Request 02/06/2025 9:30 AM CDT [facility] [address] [place] [phone] Janie Wilson APRN-CNP Trigeminal neuropathy (Primary Dx) 02/06/2025 Travel 01/28/2025 9:30 AM CDT Office Visit [facility] - GI [address] [place] [address], [place] [address] Abdirashid Andrew MD Slow transit constipation (Primary Dx); 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); S/P TIPS (transjugular intrahepatic portosystemic shunt); Secondary esophageal varices without bleeding (HCC) 01/28/2025 8:00 AM CDT - 01/28/2025 11:59 PM CDT Hospital Encounter [facility] US [address] [place] [address] Abdirashid Andrew MD Discharge Disposition: Home or Self Care 01/28/2025 Orders Only [facility] IVR [address] [place] [address] Davy Decker MD S/P TIPS (transjugular intrahepatic portosystemic shunt) ; 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); Stenosis of other vascular prosthetic devices, implants and grafts, sequela 01/28/2025 Travel 01/07/2025 Refill [facility] - Neurology [address] [facility], [place] [address] Janie Wilson APRN-JAXSON Refill Request from Last [...] on file 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 Gender Identity Not on file Sexual Orientation [...] Info) Description 06/30/2025 1:00 PM CDT Appointment [facility] RAD ONC [address] [place] [address] Cale Walden MD [address] [place] [phone] 06/30/2025 1:00 PM CDT Appointment [facility] RAD ONC [address] [place] [address] Mitchel Gustafson MD [facility] [address] 08/12/2025 9:30 AM CDT Appointment [facility] [address] [place] [phone] Abdirashid Andrew MD [address] [place] [address] 2L [place] [address] 08/12/2025 11:00 AM CDT Office Visit [facility] - GI [address] [place] [address], [place] [phone] Abdirashid Andrew MD [address] [place] [address] [address] [place] [address] 10/02/2025 9:30 AM 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 For details on monitored clinical parameters during the intra-service sedation time, please review the procedure nurse documentation in [facility]. > Dictated by Keagan Santiago MD (Children Counselor) 02/25/2025 1:19 PM Davy Palmer DO have [...] and placed supine on the procedure table. Fish Hatchery Supervisor radiograph of the abdomen was obtained, which [...] documented. After a series of exchanges, a 8-Canadian vascular sheath was placed. Through a 0.035 Glidewire a 5 Canadian SOS catheter was used to catheterize the [...] Over the glide advantage guidewire a 5 Canadian SOS catheter was exchanged for a 5 Canadian Kumpe catheter. Portal vein pressure measurements was performed through the Kumpe catheter measuring at 12 mmHg, and the 8 Canadian vascular sheath positioned within right atrium, right [...] suite and placed supine on the proceduretable. Fish Hatchery Supervisor radiograph of the abdomen was obtained, which [...] documented. After a series of exchanges, a 8-Canadian vascular sheathwas placed. Through a 0.035 Glidewire a 5 Canadian SOS catheter was used tocatheterize the proximal [...] Over the glide advantage guidewire a 5 Canadian SOS catheter was exchanged for a 5 Canadian Kumpe catheter. Portal veinpressure measurements was performed through the Kumpe catheter measuring at 12mmHg, and the 8 Canadian vascular sheath positioned within right atrium, right [...] intravenously in my presence, and monitored by [facility] nurse as an independent trained observer who [...] please review the procedure nurse documentation in [facility]. > Dictated by Keagan Santiago MD (Children Counselor) 02/25/2025 1:19 PM IDavy DO have personally reviewed and interpreted this examination/study. > Interpreting Provider: Davy Decker DO on 02/25/2025 3:08 PM Davy Decker MD IR ORDERABLES Final Result * (ABNORMAL) GLUCOSE - POINT OF CARE (02/25/2025 6:33 AM CDT) Glucose WB/POC 144(H) 70 - 99 mg/dL 02/25/2025 6:37 AM CDT [facility] Specimen Type Cap Fingerstick 2024 6:37 AM CDT [facility] Blood BLOOD SPECIMEN / Unknown 02/25/2025 6:33 AM CDT 02/25/2025 6:37 AM CDT Davy Decker MD LAB - POINT OF CARE ORDERABLE S Final Result [facility] [address] [place] [phone], [facility] [phone] * PT-INR [facility] (02/25/2025 6:32 AM CDT) PT 12.8 12.1 - 14.8 Seconds 02/25/2025 7:03 AM CDT [facility] INR 1.0 See Comment 02/25/2025 7:03 AM T [facility] Comment:The suggested therap eutic range for standard coumadin (warfarin) therapy is an INR of 2.0-3.0. For high-risk patients (Mechanical Mitral Valve Prosthesis, etc.), the suggested prophylactic therapeutic range is an INR of 2.5-3.5. Blood BLOOD SPECIMEN / Unknown Venipuncture / Unknown 02/25/2025 6:32 AM CDT 02/25/2025 6:35 AM CDT Whitney Whitmore OBSTETRICIAN/GYNECOLOGIST-SCHOOL BUS AIDE LAB - COAGULA TION ORDERABLES Final Result [facility] [address] [place] [address], [facility] [phone] * (ABNORMAL) CBC W AUTO DIFFERENTIAL (02/25/2025 6:32 AM CDT) Only the most recent of2 resultswithin the time period is included. WBC 3.6(L) 4.0 - 10.7 x10E9/L 02/25/2025 6:47 AM [facility] RBC Count 4.38 4.30 - 5.80 x10E12/L 02/25/2025 6:47 AM [facility] Hemoglobin 13.3 13.3 - 17.5 g/dL 02/25/2025 6:47 AM [facility] Hematocrit 39.5 38.7 - 51.1 % 02/25/2025 6:47 AM [facility] MCV 90.2 80.0 - 98.0 fL 02/25/2025 6:47 AM [facility] MCH 30.4 26.7 - 33.6 pg 02/25/2025 6:47 AM [facility] MCHC 33.7 31.7 - 36.3 g/dL 02/25/2025 6:47 AM [facility] RDW-CV 13.3 11.3 - 14.8 % 02/25/2025 6:47 AM [facility] Platelet Count 131(L) 150 - 420 x10E9/L 02/25/2025 6:47 AM [facility] MPV 9.9 7.8 - 11.4 fL 02/25/2025 6:47 AM [facility] Neutrophil % 58.4 41.0 - 74.0 % 02/25/2025 6:47 AM [facility] Lymphocyte % 26.3 17.0 - 47.0 % 02/25/2025 6:47 AM [facility] Monocyte % 8.9 3.0 - 11.0 % 02/25/2025 6:47 AM [facility] Eosinophil % 5.6 0.0 - 7.0 % 02/25/2025 6:47 AM [facility] Basophil % 0.8 0.0 - 1.6 % 02/25/2025 6:47 AM [facility] Immature Granulocytes % 0.0 0.0 - 1.0 % 02/25/2025 6:47 AM [facility] Neutrophil Absolute 2.09 1.60 - 7.50 x10E9/L 02/25/2025 6:47 AM [facility] Lymphocyte Absolute 0.94(L) 1.00 - 4.40 x10E9/L 02/25/2025 6:47 AM [facility] Monocyte Absolute 0.32 0.15 - 1.00 x10E9/L 02/25/2025 6:47 AM [facility] Eosinophil Absolute 0.20 0.00 - 0.60 x10E9/L 02/25/2025 6:47 AM [facility] Basophil Absolute 0.03 0.00 - 0.13 x10E9/L 02/25/2025 6:47 AM [facility] Blood BLOOD SPECIMEN / Unknown Venipuncture / Unknown 02/25/2025 6:32 AM CDT 02/25/2025 6:41 AM CDT us Whitney Whitmore OBSTETRICIAN/GYNECOLOGIST-SCHOOL BUS AIDE LAB - HEMATOL OGY ORDERABLES Final Result Performing Organization Address [facility]/State/[facility] Co de Phone Number [address] [address] [phone] * (ABNORMAL) BASIC METABOLIC PANEL (CALCIUM TOTAL) (02/25/2025 6:32 AM CDT) BUN 17 7 - 26 mg/dL 02/25/2025 7:19 AM [facility] Creatinine 0.94 0.71 - 1.16 mg/dL 02/25/2025 7:19 AM [facility] Sodium 141 136 - 145 mmol/L 02/25/2025 7:19 AM [facility] Potassium 4.0 3.5 - 4.5 mmol/L 02/25/2025 7:19 AM [facility] Chloride 109(H) 98 - 107 mmol/L 02/25/2025 7:19 AM [facility] CO2 21(L) 22 - 29 mmol/L 02/25/2025 7:19 AM [facility] Glucose 152(H) 70 - 99 mg/dL 02/25/2025 7:19 AM [facility] Calcium 8.6 8.4 - 10.2 mg/dL 02/25/2025 7:19 AM [facility] Anion Gap 11 6 - 16 02/25/2025 7:19 AM [facility] BUN/Creatinine Ratio 18 7 - 23 02/25/2025 7:19 AM [facility] Osmolality Calculated 297(H) 275 - 295 mOsm/kg 02/25/2025 7:19 AM [facility] eGFR by CKD-EPI 82(L) >=90 mL/min/1.7 3 m2 02/25/2025 7:19 AM [facility] Blood BLOOD SPECIMEN / Unknown Venipuncture / Unknown 02/25/2025 6:32 AM CDT 02/25/2025 6:41 AM T Whitney Whitmore OBSTETRICIAN/GYNECOLOGIST-SCHOOL BUS AIDE LAB - WEB PRODUCTION ARTIST RY ORDERABLES Final Result [address] [address], [facility] [phone] * HEPATIC FUNCTION PANEL (02/25/2025 6:32 AM CDT) Protein Total 6.4 6.0 - 8.3 g/dL 025 7:19 AM [facility] Albumin 3.6 3.4 - 5.0 g/dL 02/25/2025 7:19 AM [facility] Bilirubin Total 0.4 0.2 - 1.2 mg/dL 02/13 7:19 AM [facility] Bilirubin Conjugated 0.2 0.1 - 0.5 mg/dL 02/25/2025 7:19 AM [facility] Bilirubin Unconjugated 0.2 Unconjugated Bilirubin is a calculated value: Reference ranges have not been established. mg/dL 02/25/2025 7:19 AM [facility] Alkaline Phosphatase 99 40 - 150 U/L 02/25/2025 7:19 AM [facility] ALT 16 5 - 55 U/L 02/25/2025 7:19 AM [facility] AST 27 5 - 34 U/L 02/25/2025 7:19 AM [facility] Albumin/Globulin Ratio 1.3 1.1 - 2.3 02/25/2025 7:19 AM [facility] Blood BLOOD SPECIMEN / Unknown Venipuncture / Unknown 02/25/2025 6:32 AM CDT 02/25/2025 6:41 AM CDT Whitney Whitmore OBSTETRICIAN/GYNECOLOGIST-SCHOOL BUS AIDE LAB - WEB PRODUCTION ARTIST RY ORDERABLES Final Result [facility] [address] [place] [phone], [facility] [phone] * HEPATITIS B SURFACE AG QNT MONITORING (01/28/2025 10:58 AM CDT) Hepatitis B Virus Surface Antigen Quantitative <0.05 IU/mL [facility] Comment: REFERENCE RANGE: <0.05 IU/mL The HBsAg [...] treatment. For additional information, please refer to http://education.ipDatatel/faq/QPO271 (This link is being provided for informational/ educational purposes only.) Test Performed at: [facility] [address] [place] [address] GABY RAMOS MD,PHD,RODOLFO 01/28/2025 10:5 8 AM CDT 01/28/2025 10:58 AM CDT Abdirashid Andrew MD LAB - CHEMISTRY ORDERABLES Fin al Result Performing Organization Address [facility] de Phone Number [facility] [address] [place] [phone] * MICROALB/CREAT RATIO URINE RANDOM PANEL (01/28/2025 [...] within a diagnostic category. Test Performed at: [facility] [address] [place] [address] KERA JUSTICE MD 01/28/2025 10:5 8 AM CDT 01/28/2025 10:58 AM CDT Abdirashid Andrew MD LAB - URINE CHEMISTRY ORDERABL ES Final Result Performing Organization Address [facility] [place] [address] * (ABNORMAL) COMPREHENSIVE METABOLIC PANEL (01/28/2025 10:58 [...] 46 U/L [facility] Comment: Test Performed at: [facility] [address] [place] [address] KERA JUSTICE MD 01/28/2025 10:5 8 AM CDT 01/28/2025 10:58 AM CDT us Abdirashid Andrew MD LAB - CHEMISTRY ORDERABLES Fin al Result Performing Organization Address City/State/[facility] Co de Phone Number [facility] [address] [place] [address] * US Tips W Abdomen Limited (01/28/2025 [...] cholecystectomy. > Dictated by Ashish Ward MD, (residential building inspector). > Dictated by Ashish Ward MD (Children Counselor) 01/28/2025 9:39 AM IEliana MD have personally reviewed and interpreted this examination/study. > Interpreting Provider: Eliana Leary MD on 01/28/2025 1:56 PM Narrative 01/28/2025 1:56 PM CDT PROCEDURE: US TIPS W ABDOMEN LIMITED, DATE/TIME OF EXAM: 01/28/2025 9:23 AM, LOCATION [facility] INDICATION: B18.1: Chronic hepatitis B without delta [...] LIMITED, DATE/TIME OF EXAM: 59:23 AM, LOCATION [facility] INDICATION: B18.1: Chronic hepatitis B without delta [...] > Dictated by Ashish Ward MD, MD (residential building inspector). > Dictated by Ashish Ward MD (Children Counselor) 01/28/2025 9:39 AM I, Eliana Leary MD have personally reviewed and interpreted this examination/study. > Interpreting Provider: Eliana Leary MD on 01/28/2025 1:56 PM Abdirashid Andrew MD ORDERABLES Final Result from Last 3 Months Insurance MEDICARE [facility] Teams Assistant Signal Maintainer Relationship Specialty Start Date End Date Cesario Wilkinson MD [address] [place] [phone] PCP - General 01/08/19 Mitchel uGstafson MD [address] [place] [address] Neurological Surgery 05/19/20 Cale Walden MD [address] [place] [address] Radiation Oncology 05/19/20
--- OUTSIDE RECORDS SUMMARY | 2025-03-19 13:42 | XMS_ITS | Encounter Summary ---
Author Organization [facility] Address [address] [facility] [facility] [address] Care Team Providers Care Chart Computer Name Role Phone Cesario Wilkinson MD Primary Care Provider Mitchel Gustafson MD Unavailable [phone] Cael Walden MD Unavailable [phone] Reason for Visit * Reason Onset Date Comments Pre-op Instructions 02/24/2025 Encounter Details Date Type Department Care Team (Late st Contact Info) Description 02/24/2025 Telephone [facility] IVR [address] [place] [address] Ho Buitrago RN Pre-op Instructions [...] on file 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 documented in this encounter Plan of Treatment Upcoming Encounters Date Type Department Care Team ([place] st Contact Info) Description 06/30/2025 1:00 PM CDT Appointment [facility] RAD ONC [address] [place] [address] Cale Walden MD [address] [place] [address] 06/30/2025 1:00 PM CDT Appointment [facility] RAD ONC [address] [place] [address] Mitchel Gustafson MD [address] [place] [address] [address] [place] [address] 08/12/2025 9:30 AM CDT Appointment [facility] [address] [place] [phone] Abdirashid Andrew MD [address] [place] [address] [address] [place] [address] 08/12/2025 11:00 AM CDT Office Visit [facility] - GI [address] [place] [address], [place] [phone] Abdirashid Andrew MD [address] [place] [address] [address] [place] [address] 10/02/2025 9:30 AM 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 Office Visit [facility] - Neurology [address] [place] [address], [place] [phone] Janie Wilson, CHACORTA-JAXSON [address] [place] [address] [address] [place] [phone] documented as of this encounter Goals Goal [...] on filedocumented in this encounter Care Teams Chart Computer Relationship Specialty Start Date End Date Cesario Wilkinson MD [address] [place] [address] PCP - General 01/08/19 Mitchel Gustafson MD [address] [place] [address] Neurological Surgery 05/19/20 Cale Walden MD [address] [place] [address] Radiation Oncology 05/19/20 documented as of this encounter
--- OUTSIDE RECORDS SUMMARY | 2025-03-19 13:42 | XMS_ITS | Clinical Summary ---
Author Organization [facility] Address [address] [facility] [address] [place] [address] Phone Care Team Providers Care Heel Sprayer Name Role Phone Tim Fulton MD Primary Care Provider [phone] Allergies No known active allergies Medications polyethylene [...] Recently Relevant to Health Maintenance Insurance MEDICARE [facility] Care Teams Heel Sprayer Relationship Specialty Start Date End Date Tim Fulton MD [address] [place] [address] PCP - General Family Medicine 11/30/16
[2025-03-19 13:49] LABS: Influenza A QL RT-PCR Negative (Negative); Influenza B QL RT-PCR Negative (Negative); RSV RNA, RT-PCR Negative (Negative); SARS-CoV-2 RNA PCR Negative (Negative)
[2025-03-19] MEDS: MECLIZINE HCL 25 MG TABLET PO (13:50)
[2025-03-19 14:04] LABS: Add Urine Microscopic? YES; Appearance Urine Clear (Clear); Bilirubin Urine Negative (Negative); Blood Urine Negative (Negative); Color Urine Yellow (Yellow); Glucose Urine UA 3+ mg/dL (Negative); Ketones Urine Trace mg/dL (Negative); Leukocyte Esterase Ur Negative LEU/UL (Negative); Nitrate Urine Negative (Negative); Protein Urine Negative (Negative); Specific Grav Ur 1.018 (1.001-1.035); pH Urine 6.5 (5.0-9.0)
[2025-03-19 15:07] LABS: Reflex Lactic Acid Yes or No Add Lactic
[2025-03-19 15:55] LABS: Lactic Acid 2.3 mmol/L (0.7-2.0)
== END 2025-03-19 16:33 | disposition home or self-care (01) ==
PROVIDERS: Emergency Provider Emergency Medicine; PCP Family Medicine
DX: R42 Dizziness and giddiness (principal); Z20.822 Contact with and (suspected) exposure to COVID-19; E11.9 Type 2 diabetes mellitus without complications; K74.60 Unspecified cirrhosis of liver; B18.1 Chronic viral hepatitis B without delta-agent; N40.0 Benign prostatic hyperplasia without lower urinary tract symptoms; E78.5 Hyperlipidemia, unspecified; G47.33 Obstructive sleep apnea (adult) (pediatric); Z87.442 Personal history of urinary calculi; Z86.0100 Personal history of colon polyps, unspecified; Z90.79 Acquired absence of other genital organ(s); Z77.22 Contact with and (suspected) exposure to environmental tobacco smoke (acute) (chronic); Z79.899 Other long term (current) drug therapy; Z79.84 Long term (current) use of oral hypoglycemic drugs
CPT/HCPCS: 36415; 70450; 71045; 80053; 81001; 83605; 85025; 85610; 85730; 87637; 93005; 99284; A9270

== ENCOUNTER 2025-06-21 08:37 | Emergency (ER) | payer MEDICARE, SELFPAY ==
[2025-06-21 08:47] VITALS: BP 163/73; PULSE 55; RESP 16; TEMP 35.9; O2SAT 100
--- NOTE | 2025-06-21 08:49 | ED_ITS ---
HPI - General Adult General Chief complaint: Wound/Laceration Stated complaint: INFECTED FINGER Time Seen by Provider: 06/21/25 08:49 Source: patient Mode of arrival: ambulatory Limitations: no limitations History of Present Illness HPI narrative: 80 y/o male presented for c/o ingrown nail to left 4ring finger. Endorses redness and swelling. Worsening for about one week. Started after he bit a hang nail. Has applied bactine. Denies drainage to the finger. Related Data Home Medications ?Medication ?Instructions ?Recorded ?Confirmed ?Last Taken ?Type tenofovir disoproxil fumarate 300 300 mg PO DAILY 03/0406/21/25 09/05/22 History mg tablet (Viread) multivitamin 1 tablet PO DAILY 11/27/19 0 06/21/25 09/05/22 History polyethylene glycol 3350 17 17 g PO DAILY PRN Constipa tion 05/25/21 06/21/25 09/05/22 History gram/dose oral powder (Miralax) gabapentin 400 mg capsule 400 mg PO QID 01/10/2206/2109/06/22 06:30 History oxcarbazepine 300 mg tablet 300 mg PO TID 02/10/25 Un known History Allergies Allergy/AdvReac Type Severity Reaction Status Date / Time No Known Allergies Allergy Verified 06/21/25 08:46 Review of Systems Review of Systems: CONSTITUTIONAL: Denies body aches, fever, chills, or sweats. EYES: Denies visual changes, redness, or discharge. ENT: Denies rhinorrhea, congestion CARDIOVASCULAR: Denies chest pain, palpitations, or edema. RESPIRATORY: Denies cough or dyspnea. GASTROINTESTINAL: Denies abdominal pain, nausea, vomiting, or diarrhea. SKIN: reports ingrown nail MUSCULOSKELETAL: Denies back pain, joint pain, or myalgia. NEUROLOGIC: Denies headache, numbness, tingling, or weakness. [facility] Past Medical History Medical History Vasomotor rhinitis Leucopenia History of colon polyps History of gynecomastia benign 03/2007 Multiple lipomas Localized swelling, mass and lump, upper limb, bilateral Lumbar spondylosis Chronic constipation MYRANDA (obstructive sleep apnea) Type 2 diabetes mellitus without complication, without long-term current use of insulin Trigeminal neuralgia of left side of face s/p stereo tactic radiation surgery Thrombocytopenia Chronic hepatitis B Cirrhosis of liver due to hepatitis B History of kidney stones BPH w/o urinary obs/LUTS Edema of both legs Dyslipidemia Surgical History Surgical History History of back surgery 1995 History of hernia repair 1950 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/2022 - revision 01/2025- revision Hx of transurethral resection of prostate 2019 History of lumbosacral spine surgery 03/05/2018 Family History Family History Mother Hypertension Sibling Family history of malignant neoplasm of esophagus Other Family history of cardiovascular disease Family history of kidney disease Social History Social History Smoking status: Never smoker Second hand tobacco smoke exposure: No Additional smoking assessment comments: cigarettes smoke exposure as a child from father Alcohol intake: current Drinks per week: 3 Alcohol use details: WINE Substance use: never Substance use type: does not use Lack of Transportation: No Lack of Food: Never True Current Housing: I Have Housing Concerned About Future Housing: No Difficulty Paying Gas/Electric Bills: No Difficulty Paying for Meds: No Currently Unemployed: No Education: Bachelor's Degree Difficulty w/ Childcare or Family Care: No Living arrangements: with family Spiritual care concerns: No Comments At time of signature, I have reviewed and agree with nursing past medical, surgical, social and family history unless otherwise noted. Please see nursing chart for further information. There is no relevant family history pertinent to the presenting complaint Exam Narrative: GENERAL: Well-appearing HEAD: Normocephalic, atraumatic. EYES: conjunctivae clear, and EOMI. ENT: Mucous membranes moist. Oropharynx without edema, erythema or lesions. NECK: Supple. No lymphadenopathy CHEST: Clear to auscultation. HEART: Regular rate and rhythm. SKIN: Warm, dry. Left 4th digit ingrown nail with mild swelling, tender, no active drainage. NEURO: Alert and oriented x3. Course Course Emergency Course: Patient is aware of diagnosis, understands and agrees to treatment plan. Anticipatory guidance given. Patient agrees to follow-up as directed and is aware of reasons to seek care at the emergency department. Portions of this record may have been created with voice recognition software Level of Care: Express Care Visit Vital Signs Vital signs: Vital Signs Temperature 96.7 F L 06/21/25 08:47 Pulse Rate 55 L 06/21/25 08:47 Respiratory Rate 16 06/21/25 08:47 Blood Pressure 163/73 H 06/21/25 08:47 Pulse Oximetry 100 06/21/25 08:47 Temperature 96.7 F L 06/21/25 08:47 Pulse Rate 55 L 06/21/25 08:47 Respiratory Rate 16 06/21/25 08:47 Blood Pressure 163/73 H 06/21/25 08:47 Pulse Oximetry 100 06/21/25 08:47 Reviewed Medical Decision Making MDM Narrative Medical decision making narrative: Discussed physical exam findings; left 4th digit ingrown nail, mild swelling no indication for I&D. Advised supportive measures and signs/symptoms to go to the ER. Pt is appropriate for outpt treatment and f/u. Differential Diagnosis Differential Diagnosis: Paronychia, cellulitis, ingrown nail Vital Signs Vital Signs: Vital Signs Temperature 96.7 F L 06/21/25 08:47 Pulse Rate 55 L 06/21/25 08:47 Respiratory Rate 16 06/21/25 08:47 Blood Pressure 163/73 H 06/21/25 08:47 Pulse Oximetry 100 06/21/25 08:47 Temperature 96.7 F L 06/21/25 08:47 Pulse Rate 55 L 06/21/25 08:47 Respiratory Rate 16 06/21/25 08:47 Blood Pressure 163/73 H 06/21/25 08:47 Pulse Oximetry 100 06/21/25 08:47 Discharge Plan Discharge Clinical Impression: Ingrown nail Patient Disposition: Home Condition: Stable Instructions: Antibiotic Form, Ingrown Nail (ED) Additional Instructions: Soak your nail in warm soapy water or Epson salt soaks 3 or 4 times each day. This can help with any additional drainage that needs to come out. Elevate your hand as often as you can. This will help decrease swelling and pain. You can apply Bactine or neosporin with a bandaid if the site is draining. Keep it covered when it is as risk for contamination Tylenol as needed for pain Take antibiotic as directed Please follow-up with your primary care doctor in the next 3 days. If you cannot follow-up with your primary care doctor please go to the ED for any urgent issues. Patient Language: German Prescriptions: New cephalexin 500 mg capsule 500 mg PO Q8H 5 Days Qty: 15 0RF No Action oxcarbazepine 300 mg tablet 300 mg PO TID ipratropium bromide 42 mcg (0.06 %) spray,non-aerosol 2 spray intranasal TID Qty: 15 1RF Rx Instructions: administer into each nostril multivitamin Tablet 1 tablet PO DAILY gabapentin 400 mg capsule 400 mg PO QID polyethylene glycol 3350 [Miralax] 17 gram/dose powder 17 g PO DAILY PRN (Reason: Constipation) tenofovir disoproxil fumarate [Viread] 300 mg tablet 300 mg PO DAILY Rx Instructions: take 1 tablet by oral route every day with a meal (DME) lancets 28 gauge misc See Rx Instructions .ROUTE .MEDSUPPLY Qty: 25 0RF Rx Instructions: As directed (DME) blood sugar diagnostic Strip See Rx Instructions .ROUTE .MEDSUPPLY Qty: 100 1RF Rx Instructions: check blood Sugars q.day As directed lancets 33 gauge misc See Rx Instructions miscellaneous DAILY Qty: 100 2RF Dose Instruction: USE TO CHECK BLOOD SUGAR ONCE DAILY. E11.9 Rx Instructions: USE TO CHECK BLOOD SUGAR ONCE DAILY. E11.9 miscellaneous daily; glipizide 2.5 mg tablet extended release 24hr 2.5 mg PO DAILY Qty: 90 1RF metformin 500 mg tablet extended release 24 hr 1,000 mg PO BID Qty: 360 1RF atorvastatin 20 mg tablet 20 mg PO QHS Qty: 90 1RF Follow-up/Referrals: Sonia Wilkinson MD [Primary Care Provider, Family Practice] Time of Disposition: 09:06
== END 2025-06-21 09:17 | disposition home or self-care (01) ==
PROVIDERS: Emergency Provider Nurse Practitioner Family; PCP Family Medicine
DX: L60.0 Ingrowing nail (principal); E11.9 Type 2 diabetes mellitus without complications; Z79.84 Long term (current) use of oral hypoglycemic drugs; D69.6 Thrombocytopenia, unspecified; N40.0 Benign prostatic hyperplasia without lower urinary tract symptoms; K74.60 Unspecified cirrhosis of liver; E78.5 Hyperlipidemia, unspecified
CPT/HCPCS: 99213; G0463

== ENCOUNTER 2025-08-18 10:54 | Outpatient (CLI) | payer MEDICARE, SELFPAY ==
--- OUTSIDE RECORDS SUMMARY | 2025-08-18 12:11 | XMS_ITS | Encounter Summary ---
Author Organization 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 No 02/25/2025 10:19 AM CDT Jessica Mcdaniels R N Is person blind or have seri ous difficulty seeing? No 02/25/2025 10:19 AM CDT Jessica Mcdaniels, R N Does person have serious dif ficulty walking/climbing stairs? No 02/25/2025 10:19 AM PUJAT Jessica Mcdaniels RN Does person have difficulty dressing/bathing? No 02/25/2025 10:19 AM CDT Jessica Mcdaniels R N Does person have difficulty doing errands alone? No 02/25/2025 10:19 AM CDT Jessica Mcdaniels R N Does person have difficulty concentrating/remembering/making decisions? No 02/25/2025 10:19 AM CDT Jessica Mcdaniels R N * Question Answer Date of Assessment Author Q1: How often do you have a drink containing alcohol? 2-3 times a week 02/25/2025 6:43 AM Lisa Carter RN Q2: How many drinks containing alcohol do you have on a typical day when you are drinking? 1 or 2 02/25/2025 6:43 AM Fernando Carter RN Q3: How often do you have six or more drinks on one occasion? Never 02/25/2025 6:43 AM Lisa Carter RN * AUDIT-C Score Answer Date of Assessment Author 3 02/25/2025 6:43 AM Lisa Carter RN * Is person deaf or have serious hearing difficulty? Answer Date of Assessment Author No 07/27/2023 2:57 PM Silvano Galicia RN * Is person blind or have serious difficulty seeing? Answer Date of Assessment Author No 07/27/2023 2:57 PM PUJAT Quan Mckinney RN * Does person have serious difficulty walking/climbing stairs? Answer Date of Assessment Author No 07/27/2023 2:57 PM PUJAT Silvano Mckinney RN * Does person have [...] PM CDT Patient instructed to report to [facility] at 0600 for scheduled 0730 appointment, NPO after midnight, must have responsible adult present for transportation following procedure. 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 Office Visit [facility] - Neurology [address] [place] [address], [place] [address] Janie Wilson, [employer] MEMBER [address] [place] [address] [address] [place] [phone] 02/17/2026 9:45 AM CDT Appointment [facility] [address] [place] [address] Abdirashid Andrew MD [address] [place] [address] [address] [place] [address] 02/17/2026 11:00 AM CDT Office Visit [facility] - GI [address] [place] [phone] Abdirashid Andrew MD [address] [place] [address] [address] [place] [address] 06/29/2026 1:00 PM CDT Appointment [facility] RAD ONC [address] [place] [address] Cale Walden MD [address] [place] [address] 06/29/2026 1:00 PM CDT Appointment [facility] [address] [place] [address] Mitchel Gustafson MD [address] [place] [address] [place] [address] documented as of this encounter Goals Goal Patient Goal Type Associated Problems Recent Progress Patient-Stated? Author Medication Management General On track( 11:11 AM CDT) No Maki Hernandez, RN Note: Expected end date: ongoing Interventions: Take all medications as prescribed Let your doctor know right away about any changes in your medications Make sure to request a refill of your medication at least one week prior to your last dose Safety General On track( 11:11 AM CDT) No Maki Hernandez, RN Note: [...] on filedocumented in this encounter Care Teams Grants Manager Relationship Specialty Start Date End Date Cesario Wilkinson MD [address] [place] [phone] PCP - General 01/08/19 Mitchel Gustafson MD [address] [place] [phone] Neurological Surgery 05/19/20 Cale Walden MD [address] [place] [address] Radiation Oncology 05/19/20 documented as of this encounter
--- OUTSIDE RECORDS SUMMARY | 2025-08-18 12:11 | XMS_ITS | Clinical Summary ---
Author Organization [facility] [employer] Address [address] [place] [address] Care Team Providers Care Box Worker Name Role Phone Cesario Wilkinson MD Primary Care Provider Mitchel Gustafson MD Unavailable [phone] Cale Walden MD Unavailable [phone] Source Comments [facility] [employer]non-owned Affiliates and Associated Physician Practices is amultiple site organization consisting of ambulatory clinics and hospital sitesin [place], [place], [place] and [place]. This disclosure is being madepursuant to the Care Everywhere program and may not contain all information available regarding this patient. Last updated 18.[facility] [employer] Allergies No known active allergies Medications * [...] PO) Take by mouth as needed Active OXcarbazepine (Trileptal) 300 MG tabletIndicatio ns:Trigeminal neuropathy Take 1 (one) tablet by mouth 3 times daily 270 tablet 3 4 Active gabapentin (Neurontin) 400 MG capsuleIndicati ons:Trigeminal neuropathy TAKE 1 CAPSULE BY MOUTH FOUR TIMES DAILY 960 capsule 3 5 Active tenofovir disoproxil fumarate (Viread) 300 MG tabletIndicatio ns: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) Take 1 (one) tablet by mouth once daily 90 tablet 3 5 Active Active Problems Problem Noted Date Diagnosed [...] bowel habits 08/04/201407/02 Cirrhosis of liver 05/31/2012 2 Overview (12/13/2019): Overview: 06/02/14 CT: cysts and [...] Encounters Date Type Department Care Team Description 08/12/2025 11:00 AM CDT Office Visit [facility] - GI [address] [place] [phone] Abdirashid Andrew MD 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) (Primary Dx); Secondary esophageal varices without bleeding (HCC); Gastroesophageal reflux disease without esophagitis; Encounter for screening for other viral diseases 08/12/2025 9:30 AM CDT - 08/12/2025 11:59 PM CDT Hospital Encounter [facility] [address] [place] [address] Abdirashid Andrew MD Discharge Disposition: Home or Self Care 08/12/2025 Travel 08/05/2025 Orders Only [facility] - GI [address] [place] [phone] Abdirashid Andrew MD 07/11/[address] 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 Gender Identity Not on file Sexual Orientation Not on file Last Filed Vital Signs Vital Sign Reading Time Taken Comments Blood Pressure 141/73 08/12/2025 11:06 AM CDT Pulse 63 08/12/2025 11:06 AM CDT Temperature 36.5 C (97.7 F) 08/12/2025 11:06 AM CDT Respiratory Rate 18 06/30/2025 1:25 PM CDT Oxygen Saturation 99% 08/12/2025 11:06 AM CDT Inhaled Oxygen Concentration - - Weight 83.9 kg (185 lb) 08/12/2025 11:06 AM CDT Height 180.3 cm (5' 11) 08/12/2025 11:06 AM CDT Body Mass Index 25.8 08/12/2025 11:06 AM CDT Plan of Treatment Upcoming Encounters Date Type Department Care Team (Late st Contact Info) Description 10/02/2025 9:30 AM BOARD CERTIFIED MUSIC THERAPIST Office Visit [facility] - Neurology [address] [place] [phone] Janie Wilson APRN-RACE STARTER [address] [place] [address] [address] [place] [address] 02/17/2026 9:45 AM CDT Appointment [facility] [address] [place] [address] Abdirashid Andrew MD [address] [place] [address] [address] [place] [address] 02/17/2026 11:00 AM CDT Office Visit [facility] - GI [address] [place] [phone] Abdirashid Andrew MD [address] [place] [address] [address] [place] [address] 06/29/2026 1:00 PM CDT Appointment [facility] [address] [place] [address] Cale Walden MD [address] [place] [address] 06/29/2026 1:00 PM CDT Appointment [facility] [address] [place] [address] Mitchel Gustafson MD [address] [place] [address] Health Maintenance Due Date Last Done Comments MEDICARE AWV 12 MONTHS 1945 DTAP/TDAP/TD VACCINES (1 - Tdap) 01/06/1964 HEPATITIS B VACCINE (1 of 3 - Risk 3-dose series) 2005 Respiratory Syncytial Virus (RSV) Vaccine Pt: or over 60 yrs (1 - 1-dose 75+ series) 01/06/2020 PNEUMOCOCCAL VACCINE 50+ (2 of 2 - PPSV23, PCV20, or PCV21) 09/02/2020 07/08/2020 DEPRESSION SCREENING 10/16/2024 06/27/2023 COVID-19 VACCINE ( - season) 2025 07/13/2021, 12/19/2020, 11/28/2020 INFLUENZA VACCINE (#1) 2025 , 06/16/2020, 08/01/2019, Additional history exists ZOSTER VACCINE [...] Procedure Name Priority Date/Time Associated Diagnosis Comments US TIPS W ABDOMEN LIMITED Routine 08/12/2025 10:32 AM CDT 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) S/P TIPS (transjugular intrahepatic portosystemic shunt) Secondary esophageal varices without bleeding (HCC) HEPATITIS B SURFACE AG QNT MONITORING 08/06/2025 10:08 AM CDT ALPHA FETOPROTEIN BLOOD TUMOR MARKER 08/06/2025 10:08 AM CDT COMPREHENSIVE METABOLIC PANEL 08/06/2025 10:08 AM CDT PHOSPHORUS BLOOD 08/06/2025 10:0 8 AM CDT MICROALB/CREAT RATIO URINE RANDOM PANEL 08/06/2025 10:08 AM CDT from Last 3 Months Results * US Tips W Abdomen Limited (08/12/2025 10:32 AM CDT) Anatomical Region Laterality Modality Abdomen Ultrasound 08/12/2025 11:0 2 AM CDT Impressions 08/12/2025 11:09 AM CDT Impression: Hepatic cirrhosis. Liver Visualization Score A: No or minimal limitations. US-1 Negative. Repeat surveillance US in 6 months. Patent transjugular intrahepatic portal systemic shunt (TIPS) with unchanged mildly decreased velocity in the proximal segment. REFERENCE: US LI-RADS categories: US Category: US 1 - Negative: No evidence of hepatocellular carcinoma (HCC). US 2 - Subthreshold: Observation detected that may warrant short-interval US surveillance. Observation<10 mm in diameter, not definitely benign. US 3 - Positive: Observation detected that may warrant multi-phase contrast-enhanced imaging. Observation >/= 10 mm in diameter or new thrombus in vein. Visualization Score: A. No or minimal limitations: Limitations, if any, are unlikely to meaningfully affect sensitivity. B. Moderate limitations: Limitations may obscure small masses. C. Severe limitations: Limitations significantly lower sensitivity for focal liver lesions. Report drafted by Marcus Bailon (resident). > Interpreting Provider: Marcus Bailon on 08/12/2025 11:09 AM Narrative 08/12/2025 11:09 AM CDT PROCEDURE: US TIPS W ABDOMEN LIMITED, DATE/TIME OF EXAM: 08/12/2025 10:32 AM, LOCATION [facility] INDICATION: B18.1: 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) K74.60: 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) Z95.828: S/P TIPS (transjugular intrahepatic portosystemic shunt) I85.10: Secondary esophageal varices without bleeding (HCC) ADDITIONAL CLINICAL INFORMATION: Ordering Provider Reason For Exam: Technologist Note: Additional: COMPARISON: 01/28/2025. Findings Liver Visualization Score: No or minimal limitations in liver visualization Liver Morphology: The liver has a coarse echotexture and nodular surface. Liver Observations: No suspicious hepatic lesion. Subcentimeter cyst in the right hemiliver. Liver Doppler: Proximal TIPS velocity: 53 cm/s (previously 63 cm/s) Middle TIPS velocity: 93 cm/s (previously 69 cm/s) Distal TIPS velocity: 102 cm/s (previously 131 cm/s) The TIPS is patent. There is reversal of flow in the left portal vein flow consistent with portosystemic shunting. The main portal vein velocity is 36 cm/s. The right, middle, and left hepatic veins are patent with normal waveforms. The proper hepatic artery is patent with normal arterial waveform and resistive index of 0.79. Bile Ducts: The common bile duct is nondilated, measuring 8 mm. No intrahepatic or extrahepatic biliary dilation. Gallbladder: Absent. Ascites: No ascites is present. Spleen: The spleen measures 13.9 cm in length. Pancreas: The visible pancreas is normal in echogenicity. Right Kidney: The right kidney measures 10.8 cm in length. Limited views of the right kidney reveal no evidence of nephrolithiasis or hydronephrosis. No discrete mass identified. Procedure Note Marcus Parish MD - 08/12/2025 PROCEDURE: US TIPS W ABDOMEN LIMITED, DATE/TIME OF EXAM: 0:32 AM, LOCATION [facility] INDICATION: B18.1: 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) K74.60: 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) Z95.828: S/P TIPS (transjugular intrahepatic portosystemic shunt) I85.10: Secondary esophageal varices without bleeding (HCC) ADDITIONAL CLINICAL INFORMATION: Ordering Provider Reason For Exam: Technologist Note: Additional: COMPARISON: 01/28/2025. Findings Liver Visualization Score: No or minimal limitations in liver visualization Liver Morphology: The liver has a coarse echotexture and nodular surface. Liver Observations: No suspicious hepatic lesion. Subcentimeter cyst in the right hemiliver. Liver Doppler: Proximal TIPS velocity: 53 cm/s (previously 63 cm/s) Middle TIPS velocity: 93 cm/s (previously 69 cm/s) Distal TIPS velocity: 102 cm/s (previously 131 cm/s) The TIPS is patent. There is reversal of flow in the left portal veinflow consistent with portosystemic shunting. The main portal vein velocity is36 cm/s. The right, middle, and left hepatic veins are patent with normal waveforms. The proper hepatic artery is patent with normal arterial waveform and resistive index of 0.79. Bile Ducts: The common bile duct is nondilated, measuring 8 mm. No intrahepatic or extrahepatic biliary dilation. Gallbladder: Absent. Ascites: No ascites is present. Spleen: The spleen measures 13.9 cm in length. Pancreas: The visible pancreas is normal in echogenicity. Right Kidney: The right kidney measures 10.8 cm in length. Limited views of the right kidney reveal no evidence of nephrolithiasis or hydronephrosis. No discrete mass identified. Impression: Hepatic cirrhosis. Liver Visualization Score A: No or minimal limitations. US-1 Negative. Repeat surveillance US in 6 months. Patent transjugular intrahepatic portal systemic shunt (TIPS) with unchanged mildly decreased velocity in the proximal segment. REFERENCE: US LI-RADS categories: US Category: US 1 - Negative: No evidence of hepatocellular carcinoma (HCC). US 2 - Subthreshold: Observation detected that may warrant short-interval US surveillance. Observation<10 mm in diameter, not definitely benign. US 3 - Positive: Observation detected that may warrant multi-phase contrast-enhanced imaging. Observation >/= 10 mm in diameter or new thrombus in vein. Visualization Score: A. No or minimal limitations: Limitations, if any, are unlikely to meaningfully affect sensitivity. B. Moderate limitations: Limitations may obscure small masses. C. Severe limitations: Limitations significantly lower sensitivityfor focal liver lesions. Report drafted by Marcus Bailon (resident). > Interpreting Provider: Marcus Bailon on 08/12/2025 11:09 AM Abdirashid Andrew MD US ORDERABLES Final Result * HEPATITIS B SURFACE AG QNT MONITORING (08/06/2025 10:08 AM CDT) Hepatitis B Virus Surface Antigen [...] treatment. For additional information, please refer to http://education.[employer]/faq/VTG563 (This link is being provided for informational/ educational purposes only.) Test Performed at: [facility] [address] [place] [address] GABY RAMOS MD,PHD,RODOLFO 08/06/2025 10:0 8 AM CDT 08/06/2025 10:10 AM CDT Abdirashid Andrew MD LAB - CHEMISTRY ORDERABLES Fin al Result [facility] [address] [place] [address] * MICROALB/CREAT RATIO URINE RANDOM PANEL (08/06/2025 10:08 AM CDT) Creatinine Urine 86 20 - 320 mg/dL [facility] Microalbumin Urine 0.5 mg/dL [facility] Comment: Reference Range Not established Microalbumin/Creat inine Ratio 6 <30 mg/g creat [facility] Comment: The ADA [...] within a diagnostic category. Test Performed at: [facility] [address] [place] [address] KERA JUSTICE MD 08/06/2025 10:0 8 AM CDT 08/06/2025 10:10 AM CDT Abdirashid Andrew MD LAB - URINE CHEMISTRY ORDERABL ES Final Result Performing Organization Address [facility] de Phone Number [facility] [address] [place] [address] * ALPHA FETOPROTEIN BLOOD TUMOR MARKER (08/06/2025 10:08 AM CDT) Pathologist [facility] Alpha-Fetoprotei n Tumor Marker 4.1 <6.1 ng/mL [facility] Comment: This test was performed using the Princess Edilberto chemiluminescent method. Values obtained from different assay methods cannot be used interchangeably. AFP levels, regardless of value, should not be interpreted as absolute evidence of the presence or absence of disease. Test Performed at: [facility] [address] [address] ASIA AGARWAL 08/06/2025 10:0 8 AM CDT 08/06/2025 10:10 AM CDT Abdirashid Andrew MD LAB - CHEMISTRY ORDERABLES Fin al Result Performing Organization Address [facility] Co de Phone Number [facility] [address] [place] [address] * (ABNORMAL) COMPREHENSIVE METABOLIC PANEL (08/06/2025 10:08 AM CDT) Pathologist [facility] Glucose 243(H) 65 - 99 mg/dL [facility] Comment: Fasting reference interval For someone without known diabetes, a glucose value >125 mg/dL indicates that they may have diabetes and this should be confirmed with a follow-up test. BUN 11 7 - 25 mg/dL [facility] Creatinine 0.94 0.70 - 1.22 mg/dL [facility] eGFR by Cystatin C 82 > OR = 60 mL/min/1. 73m2 [facility] BUN/Creatinine Ratio SEE NOTE: 6 - (calc) [facility] Comment: Not Reported: BUN and Creatinine are within reference range. Sodium 139 135 - 146 mmol/L [facility] Potassium 4.1 3.5 - 5.3 mmol/L [facility] Chloride 103 98 - 110 mmol/L [facility] CO2 30 20 - 32 mmol/L [facility] Calcium 9.1 8.6 - 10.3 mg/dL [facility] Protein Total 6.3 6.1 - 8.1 g/dL [facility] Albumin 3.9 3.6 - 5.1 g/dL [facility] Globulin Total 2.4 1.9 - 3.7 g/dL (calc) [facility] Albumin/Globulin Ratio 1.6 1.0 - 2.5 (calc) [facility] Bilirubin Total 0.5 0.2 - 1.2 mg/dL [facility] Alkaline Phosphatase 105 35 - 144 U/L [facility] AST 22 10 - 35 U/L [facility] ALT 15 9 - 46 U/L [facility] Comment: Test Performed at: [place] [address] KERA JUSTICE MD 08/06/2025 10:0 8 AM CDT 08/06/2025 10:10 AM CDT Abdirashid Andrew MD LAB - CHEMISTRY ORDERABLES Fin al Result [facility] [address] [place] [address] * PHOSPHORUS BLOOD (08/06/2025 10:08 AM CDT) Phosphorus 2.8 2.1 - 4.3 mg/dL [facility] Comment: Test Performed at: [facility] [place] [address] KERA JUSTICE MD 08/06/2025 10:0 8 AM CDT 08/06/2025 10:10 AM CDT Abdirashid Andrew MD LAB - CHEMISTRY ORDERABLES Fin al Result [facility] [address] [place] [address] from Last 3 Months Insurance MEDICARE [facility] MEDICARE [facility] Member Subscriber Plan / Payer (Ef fective 2022-Present) Name:Pierre Rayo Relation to Subscriber:Self Name:PIERRE RAYO Payer ID:[id number] (NA) Group ID:[id number] Type:PPO Address: [facility] [address] [place] [id number] Care Teams Box Worker Relationship Specialty Start Date End Date Cesario Wilkinson MD [address] [place] [phone] PCP - General 01/08/19 Mitchel Gustafson MD [address] [place] [address] Neurological Surgery 05/19/20 Cale Walden MD [address] [place] [address] Radiation Oncology 05/19/20
--- OUTSIDE RECORDS SUMMARY | 2025-08-18 12:11 | XMS_ITS | Clinical Summary ---
Author Organization [facility] Address [address] [facility] [address] [place] [address] Phone Care Team Providers Care Inspector Clip On Sunglasses Name Role Phone Tim Fulton MD Primary Care Provider [phone] Allergies No known active allergies Medications polyethylene [...] 1995 Zoster Immunization (1 of 2) 1995 Medicare Initial AWV [id number] 12/14/2010 Respiratory Syncytial Virus (RSV) Immunization (Adult) (1 - 1-dose 75+ series) 01/06/2020 Influenza Immunization (#1) 2025 SARS-COV-2 Immunization ( - season) 2025 Colonoscopy Discontinued 03/23/2017 Colorectal Cancer Screening Discontinued Cologuard Discontinued Hepatitis B Immunization Aged Out No longer eligible based on patient's age to complete this topic Human Papillomavirus (HPV) Immunization Aged Out No longer eligible b ased on patient's age to complete this topic [...] Recently Relevant to Health Maintenance Insurance MEDICARE [facility] Care Teams Inspector Clip On Sunglasses Relationship Specialty Start Date End Date Tim Fulton MD [address] [place] [address] PCP - General Family Medicine 11/30/16
--- OUTSIDE RECORDS SUMMARY | 2025-08-18 12:11 | XMS_ITS | Encounter Summary ---
Author Organization [facility] Address [address] [place] [address] Care Team Providers Care Executive Vice President Name Role Phone Cesario Wilkinson MD Primary Care Provider Mitchel Gustafson MD Unavailable Cale Walden MD Unavailable [phone] Encounter Details Date Type Department Care Team (Late st Contact Info) Description 02/13/2024 Telephone [facility] - Neurology [facility] [facility] [place] [address] Janie Wilson APRN-CLERICAL SUPPORT [address] [place] [address] [place] [address] Social History Tobacco Use Types [...] on file 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 Gender Identity Not on file Sexual Orientation [...] st Contact Info) Description 10/02/2025 9:30 AM ASSISTED LIVING NURSING DIRECTOR Office Visit [facility] - Neurology [address] [facility] [place] [phone] Janie Wilson APRN-CLERICAL SUPPORT [address] [place] [address] [place] [phone] 02/17/2026 9:45 AM CDT Appointment [facility] [address] [place] [phone] Abdirashid Andrew MD [address] [place] [address] [address] [place] [address] 02/17/2026 11:00 AM CDT Office Visit [facility] - GI [address] [place] [address], [place] [phone] Abdirashid Andrew MD [address] [place] [address] 2[address] [place] [address] 06/29/2026 1:00 PM CDT Appointment [facility] [address] [place] [address] Cale Walden MD [address] [place] [address] 06/29/2026 1:00 PM CDT Appointment [facility] [address] [place] [address] Mitchel Gustafson MD [address] [place] [address] [address] [place] [address] documented as of this encounter Goals Goal Patient Goal Type Associated Problems Recent Progress Patient-Stated? Author Medication Management General On track( 11:11 AM CDT) No Maki Hernandez, LILIAN Note: Expected end date: ongoing Interventions: Take all medications as prescribed Let your doctor know right away about any changes in your medications Make sure to request a refill of your medication at least one week prior to your last dose Safety General On track( 11:11 AM CDT) No Maki Hernandez, LILIAN Note: [...] on filedocumented in this encounter Care Teams Executive Vice President Relationship Specialty Start Date End Date Cesario Wilkinson MD [address] [place] [phone] PCP - General 01/08/19 Mitchel Gustafson MD [address] [place] [phone] Neurological Surgery 05/19/20 Cale Walden MD [address] [place] [address] Radiation Oncology 05/19/20 documented as of this encounter
[2025-08-18 13:13] LABS: Hematocrit 43.7 % (42.0-52.0); Hemoglobin 14.2 g/dL (14.0-18.0); Immature Granulocyte Percent A 0.3 % (0-0.5); Lymphocytes Absolute Auto 0.90 K/mm3 (0.9-3.2); Mean Corpuscular HGB Conc 32.5 g/dl (32-36); Mean Corpuscular Hemoglobin 29.8 pg (26-34); Mean Corpuscular Volume 91.8 fl (80-100); Nucleated Red Blood Cells Absolute Auto 0.000 K/mm3 (0.0-0.012); Nucleated Red Blood Cells Perc 0.0 % (0.0-0.2); Platelet Count Result 140 k/mm3 (150-375); Red Blood Count 4.76 M/mm3 (4.6-6.20); White Blood Count 3.6 K/mm3 (4.5-10.0)
[2025-08-18 13:16] LABS: Alanine Aminotransferase 19 U/L (6-50); Albumin Level 4.1 g/dL (3.5-5.1); Alkaline Phosphatase 115 U/L (38-126); Anion Gap 6 mmol/L (4-12); Aspartate Amino Transferase 39 U/L (17-59); Bilirubin,Total 0.7 mg/dL (0.2-1.3); Blood Urea Nitrogen 14 mg/dL (9-20); Calcium 9.2 mg/dL (8.4-10.2); Carbon Dioxide 27 mmol/L (22-30); Chloride 103 mmol/L (98-107); Cholesterol 139 mg/dL (0-200); Estimated Glomerular Filt Rate > 60; Glucose 193 mg/dL (65-110); HDL Direct 48 mg/dL; Potassium 4.6 mmol/L (3.4-5.0); Sodium 136 mmol/L (137-145); Total Protein 7.1 g/dL (6.3-8.2); Triglycerides 65 mg/dL (<150)
[2025-08-18 13:21] LABS: Add Urine Microscopic? YES; Appearance Urine Clear (Clear); Glucose Urine UA 2+ mg/dL (Negative); Leukocyte Esterase Ur Negative LEU/UL (Negative); Nitrate Urine Negative (Negative); Non Pathogenic Casts 0-2; Specific Grav Ur 1.024 (1.001-1.035)
[2025-08-18 13:42] LABS: MALB Creatinine Ratio 19.6 mg/g (0-30)
[2025-08-18 13:43] LABS: Hemoglobin A1C 7.4 % (<5.7)
[2025-08-18 13:45] LABS: Thyroid Stimulating Hormone Reflex 1.750 uIU/mL (0.465-4.68)
[2025-08-18 13:54] LABS: Prostate Specific Antigen 1.3 ng/mL (< OR = 4.0)
[2025-08-18 14:13] LABS: Vitamin B12 774.0 pg/mL (239-931)
== END 2025-08-18 10:55 | disposition home or self-care (01) ==
PROVIDERS: PCP Family Medicine; Visit Provider Family Medicine
DX: E78.5 Hyperlipidemia, unspecified (principal); I10 Essential (primary) hypertension; Z12.5 Encounter for screening for malignant neoplasm of prostate; E55.9 Vitamin D deficiency, unspecified; E11.9 Type 2 diabetes mellitus without complications; Z00.00 Encounter for general adult medical examination without abnormal findings; E53.8 Deficiency of other specified B group vitamins; R35.0 Frequency of micturition
CPT/HCPCS: 36415; 80053; 80061; 81001; 82043; 82306; 82607; 83036; 84153; 84443; 85025; G0103

== ENCOUNTER 2025-09-08 09:41 | Outpatient (CLI) | payer MEDICARE, SELFPAY ==
--- NOTE | 2025-09-08 09:54 | ECHO_ITS ---
Patient Info Name: Lei Rayo Age: 80 years : 1945 Gender: Male Ht: 71 in Wt: 180 lbs BSA: 2.03 m2 HR: 50 bpm BP: 128 / 74 mmHg Heart Rhythm: Sinus Rhythm Technical Quality: Good Exam Date: 09/08/2025 10:01 AM Patient Status: O Admit Date: 09/08/2025 Exam Type: CA echo doppler color flow Complete two-dimensional, color flow and Doppler transthoracic echocardiogram is performed. Press Hand: Elvira Costa Attending Provider: Sonia Wilkinson Summary 1. Complete two-dimensional, color flow and Doppler transthoracic echocardiogram is performed. 2. Left ventricular chamber dimension is normal. 3. Left ventricular systolic function is normal, estimated at 65-70. 4. The left ventricular diastolic function is grade I diastolic dysfunction. 5. E/e' 9 is minimally elevated. 6. There is mild aortic valve sclerosis. Left Ventricle E/e' 9 is minimally elevated. Left ventricular chamber dimension is normal. Left ventricular systolic function is normal, estimated at 65-70. The left ventricular diastolic function is grade I diastolic dysfunction. Right Ventricle Right ventricular chamber dimension is normal. Right ventricular systolic function is normal and with normal TAPSE 2.0 cm. Left Atria Left atrial chamber dimension is normal. Right Atria Right atrial chamber dimension is normal. Aortic Valve The aortic valve is trileaflet. There is mild aortic valve sclerosis. There is no aortic valve stenosis. There is no aortic valve regurgitation. Pulmonic Valve There is no pulmonic regurgitation. Mitral Valve There is no mitral valve stenosis. There is no mitral valve regurgitation. Tricuspid Valve There is no tricuspid valve regurgitation. Pericardium/Pleural There is no pericardial effusion. Inferior Vena Cava Normal inferior vena cava with >50% collapse upon inspiration consistent with normal right atrial pressure, 5 mmHg. Aorta The aortic root size at the sinus of Valsalva is normal. Left Ventricular Outflow Tract Name Value Normal LVOT 2D LVOT Diameter 2.0 cm LVOT Doppler LVOT Peak Velocity 135 cm/s LVOT Peak Gradient 7 mmHg LVOT Mean Gradient 4 mmHg LVOT VTI 27 cm LVOT VTI/AV VTI Ratio 0.9 LVOT Stroke Volume 86 ml LVOT CO 4.8 l/min LVOT CI 2.4 l/min/m2 Pulmonic Valve Name Value Normal RVOT Doppler RVOT Peak Velocity 68 cm/s RVOT Peak Gradient 2 mmHg PV Doppler PV Peak Velocity 96 cm/s PV Peak Gradient 4 mmHg Mitral Valve Name Value Normal MV Diastolic Function MV E Peak Velocity 54 cm/s MV A Peak Velocity 73 cm/s MV E/A 0.7 MV Decel Time (PW) 322 ms MV Annular TDI MV E/e' (Septal) 10.1 MV E/e' (Lateral) 9.1 MV E/e' (Average) 9.6 Tricuspid Valve Name Value Normal Estimated PAP/RSVP RA Pressure 5 mmHg <=5 TV Annular TDI TV Lateral Lynette s' Velocity 13.5 cm/s >=9.5 Aorta Name Value Normal Ascending Aorta Ao Root Diameter (MM) 3.8 cm Ao Root Diam Index (MM) 1.9 cm/m2 Aortic Valve Name Value Normal AV Doppler AV Peak Velocity 145 cm/s AV Peak Gradient 8 mmHg AV Mean Gradient 4 mmHg AV VTI 30 cm AV Area (Cont Eq VTI) 2.9 cm2 >=3.0 AV Area (Cont Eq Raymond) 3.0 cm2 AV DI (Raymond) 0.93 AV Regurgitation 2D LVOT Area 3.2 cm2 Ventricles Name Value Normal LV Dimensions 2D/MM IVS Diastolic Thickness (2D) 1.1 cm 0.6-1.0 LVID Diastole (2D) 5.6 cm 4.2-5.8 LVIW Diastolic Thickness (2D) 1.0 cm 0.6-1.0 LVID Systole (2D) 3.5 cm 2.5-4.0 LVOT Diameter 2.0 cm LV Mass (2D Cubed) 231.70 g 88.00-224.00 LV Mass Index (2D Cubed) 114 g/m2 49-115 Relative Wall Thickness (2D) 0.35 <=0.42 LV Fractional Shortening/Ejection Fraction 2D/MM LV Fractional Shortening (2D) 37 % 25-43 LV EF (2D Teichholz) 66 % LV Diastolic Volume (4C MOD) 77 ml LV EF (4C MOD) 68 % LV Diastolic Volume (2C MOD) 66 ml LV EF (2C MOD) 71 % LV Diastolic Volume (BP MOD) 71 ml 62-150 LV Diastolic Volume Index (BP MOD) 35 ml/m2 34-74 LV Systolic Volume (BP MOD) 24 ml 21-61 LV Systolic Volume Index (BP MOD) 12 ml/m2 11-31 LV EF (BP MOD) 66 % 52-72 LV Diastolic Length (4C) 7.5 cm LV Systolic Length (4C) 6.6 cm LV Stroke Volume (4C MOD) 52 ml Atria Name Value Normal LA Dimensions LA Dimension (MM) 4.3 cm 3.0-4.0 LA Volume (4C A-L) 55 ml LA Volume (BP A-L) 59 ml RA Dimensions RA Area (4C) 17.3 cm2 <=18.0 Report Signatures
--- OUTSIDE RECORDS SUMMARY | 2025-09-08 10:56 | XMS_ITS | Clinical Summary ---
Author Organization [facility] Address [address] [facility], [facility] [address] [place] [address] Phone Care Team Providers Care Chief Credit Officer Name Role Phone Tim Fulton MD Primary Care Provider [phone] Allergies No known active allergies Medications polyethylene [...] Recently Relevant to Health Maintenance Insurance MEDICARE [facility] Care Teams Chief Credit Officer Relationship Specialty Start Date End Date Tim Fulton MD [address] [place] [address] PCP - General Family Medicine 11/30/16
--- OUTSIDE RECORDS SUMMARY | 2025-09-08 10:56 | XMS_ITS | Encounter Summary ---
Author Organization [facility] Address [address] [place] [address] Care Team Providers Care Senior Informatica Developer Name Role Phone Cesario Wilkinson MD Primary Care Provider Mitchel Gustafson MD Unavailable [phone] Cale Walden MD Unavailable [phone] Reason for Visit * Reason Onset Date Comments Pre-op Instructions 02/24/2025 Encounter Details Date Type Department Care Team (Late st Contact Info) Description 02/24/2025 Telephone [facility] IVR [address] [place] [address] Ho Buitrago RN Pre-op Instructions [...] on file Legal Sex Male 5:23 PM SIDE SAWYER Gender Identity Not on file Sexual Orientation [...] PM CDT Patient instructed to report to [facility] at 0600 for scheduled 0730 appointment, NPO after midnight, must have responsible adult present for transportation following procedure. documented in this encounter Plan of Treatment Upcoming Encounters Date Type Department Care Team (Late st Contact Info) Description 10/02/2025 9:30 AM SIDE SAWYER Office Visit [facility] - Neurology [address] [place] [address], [place] [address] Janie Wilson, DIE KEEPER-STEM CRUSHER [address] [place] [address] 1L [place] [phone] 02/17/2026 9:45 AM CDT Appointment [facility] [address] [place] [address] Abdirashid Andrew MD [address] [place] [address] 2L [place] [address] 02/17/2026 11:00 AM CDT Office Visit [facility] - GI [address] [place] [phone] Abdirashid Andrew MD [address] [place] [address] 2L [place] [address] 06/29/2026 1:00 PM CDT Appointment [facility] RAD ONC [address] [place] [address] Cale Walden MD [address] [place] [address] 06/29/2026 1:00 PM CDT Appointment [facility] RAD ONC [address] [place] [address] Mitchel Gsutafson MD [address] [place] [address] [place] [address] documented as of this encounter Goals Goal [...] on filedocumented in this encounter Care Teams Senior Informatica Developer Relationship Specialty Start Date End Date Cesario Wilkinson MD [address] [place] [address] PCP - General 01/08/19 Mitchel Gustafson MD [address] [place] [address] Neurological Surgery 05/19/20 Cale Walden MD [address] [place] [address] Radiation Oncology 05/19/20 documented as of this encounter
--- OUTSIDE RECORDS SUMMARY | 2025-09-08 10:57 | XMS_ITS | Clinical Summary ---
Author Organization [facility] Address [address] [place] [address] Care Team Providers Care Remote Medical Coder Name Role Phone Cesario Wilkinson MD Primary Care Provider Mitchel Gustafson MD Unavailable [phone] Cale Walden MD Unavailable [phone] Source Comments [facility],non-owned Affiliates and Associated Physician Practices is amultiple site organization consisting of ambulatory clinics and hospital sitesin [place], [place], [place] and [place]. This disclosure is being madepursuant to the Care Everywhere program and may not contain all information available regarding this patient. Last updated 18.[facility] Allergies No known active allergies Medications * Be aware that medications may not be up to date on this document. Alwaysverify current medications with the patient. Multiple Vitamin (DAILY VITAMIN PO) Take by mouth once daily Active metFORMIN ER 24hr (GLUCOPHAGE XR) 500 MG tablet Take 2 (two) tablets by mouth 2 times daily 10/17/19 19 Active atorvastatin (LIPITOR) 20 MG tablet Take 1 (one) tablet by mouth once daily 12/18/19 20 Active ONETOUCH ULTRA test strip USE TO CHECK BLOOD SUGAR EVERY DAY DIRECTED 03/11/20 20 Active OneTouch Delica Lancets 33G MISC USE TO CHECK BLOOD SUGAR ONCE DAILY. E11.9 12/16/19 21 Active glipiZIDE CR 24hr (GLUCOTROL XL) 2.5 MG tablet Take 1 (one) tablet by mouth daily before breakfast Active Polyethylene Glycol 3350 (MIRALAX PO) Take by mouth as needed Active gabapentin (Neurontin) 400 MG capsuleIndicat ions:Trigemina l neuropathy TAKE 1 CAPSULE BY MOUTH FOUR TIMES DAILY 960 capsule 3 01/08/20 25 Active tenofovir disoproxil fumarate (Viread) 300 MG tabletIndicati ons: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) Take 1 (one) tablet by mouth once daily 90 tablet 3 07/11/20 25 Active OXcarbazepine (Trileptal) 300 MG tabletIndicati ons:Trigeminal neuropathy TAKE 1 TABLET BY MOUTH THREE TIMES DAILY 270 tablet 3 09/05/20 25 Active OXcarbazepine (Trileptal) 300 MG tabletIndicati ons:Trigeminal neuropathy Take 1 (one) tablet by mouth 3 times daily 270 tablet 3 08/08/20 24 025 Discontinued Active Problems Problem Noted Date Diagnosed Date [...] Encounters Date Type Department Care Team Description 09/05/2025 Refill [facility] - Neurology [address] [place] [phone] Janie Wilson APRN-IRON LAUNDER OPERATOR Refill Request 08/12/2025 11:00 AM CDT Office Visit [facility] - GI [address] [place] [phone] Abdirashid Andrew MD 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) (Primary Dx); Secondary esophageal varices without bleeding (HCC); Gastroesophageal reflux disease without esophagitis; Encounter for screening for other viral diseases 08/12/2025 9:30 AM CDT - 08/12/2025 11:59 PM CDT Hospital Encounter [facility] [address] [place] [address] Abdirashid Andrew MD Discharge Disposition: Home or Self Care 08/12/2025 Travel 08/05/2025 Orders Only [facility] - GI [address] [place] [phone] Abdirashid Andrew MD 07/11/2025 Orders Only [facility] - Nephrology [address] [place] [address] [place] [address] Ivett Saunders RN Hepatic encephalopathy (HCC) ; 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) 06/30/2025 12:39 PM CDT - 06/30/2025 11:59 PM CDT Hospital Encounter [facility] [address] [place] [address] Cale Walden MD Discharge Disposition: Home or [...] file Legal Sex Male 5:23 PM BOARD HAMMER OPERATOR Gender Identity Not on file Sexual [...] Contact Info) Description 10/02/2025 9:30 AM BOARD HAMMER OPERATOR Office Visit [facility] - Neurology [address] [place] [address] [place] [address] Janie Wilson APRN-JAXSON [address] [place] [address] 1[address] [place] [address] 02/17/2026 9:45 AM CDT Appointment [facility] [address] [place] [phone] Abdirashid Andrew MD [address] [place] [address] 2L [place] [address] 02/17/2026 11:00 AM CDT Office Visit [facility] - GI [address] [place] [phone] Abdirashid Andrew MD [address] [place] [address] 2L [place] [address] 06/29/2026 1:00 PM CDT Appointment [facility] RAD ONC [address] [place] [address] Cale Walden MD [address] [place] [address] 06/29/2026 1:00 PM CDT Appointment [facility] RAD ONC [address] [place], [place] [phone] Mitchel Gustafson MD [address] [place] [address] Health Maintenance Due Date Last Done Comments [...] Author Medication Management General On track( 025 11:11 AM CDT) Maki Patel, RN Note: Expected end date: ongoing Interventions: Take all medications as prescribed Let your doctor know right away about any changes in your medications Make sure to request a refill of your medication at least one week prior to your last dose Safety General On track( 025 11:11 AM CDT) Maki Patel RN Note: Expected [...] DATE/TIME OF EXAM: 08/12/2025 10:32 AM, LOCATION [facility] INDICATION: B18.1: Chronic hepatitis B without delta [...] LIMITED, DATE/TIME OF EXAM: 0:32 AM, LOCATION [facility] INDICATION: B18.1: Chronic hepatitis B without delta [...] Provider: Marcus Bailon on 08/12/2025 11:09 AM us Abdirashid Andrew MD US ORDERABLES Final Result [...] treatment. For additional information, please refer to http://education.Didatuan/faq/YJQ106 (This link is being provided for informational/ educational purposes only.) Test Performed at: [employer] [address] [place] [address] GABY RAMOS MD,PHD,RODOLFO 08/06/2025 10:0 8 AM CDT 08/06/2025 10:10 AM CDT us Abdirashid Andrew MD LAB - CHEMISTRY ORDERABLES Fin al Result Performing Organization Address [facility] Co de Phone Number [facility] [address] [place] [address] * MICROALB/CREAT RATIO URINE RANDOM PANEL (08/06/2025 [...] within a diagnostic category. Test Performed at: [employer] [facility] [address] [place] [address] KERA JUSTICE MD 08/06/2025 10:0 8 AM CDT 08/06/2025 10:10 AM CDT us Abdirashid Andrew MD LAB - URINE CHEMISTRY ORDERABL ES Final Result Performing Organization Address [facility] de Phone Number [facility] [address] [place] [address] * ALPHA FETOPROTEIN BLOOD TUMOR MARKER (08/06/2025 10:08 AM CDT) Alpha-Fetoprotei n Tumor Marker 4.1 <6.1 ng/mL [facility] Comment: This test was performed using the Princess Edilberto chemiluminescent method. Values obtained from different assay methods cannot be used interchangeably. AFP levels, regardless of value, should not be interpreted as absolute evidence of the presence or absence of disease. Test Performed at: [employer] [address] [address] ASIA AGARWAL 08/06/2025 10:0 8 AM CDT 08/06/2025 10:10 AM CDT us Abdirashid Andrew MD LAB - CHEMISTRY ORDERABLES Fin al Result Performing Organization Address City/[facility] Co de Phone Number [facility] [address] [place] [address] * (ABNORMAL) COMPREHENSIVE METABOLIC PANEL (08/06/2025 10:08 AM CDT) Glucose 243(H) 65 - 99 mg/dL [facility] [...] mL/min/1. 73m2 [facility] BUN/Creatinine Ratio SEE NOTE: (calc) [facility] Comment: Not Reported: BUN and [...] 46 U/L [facility] Comment: Test Performed at: [employer] [address] [address] KERA JUSTICE MD 08/06/2025 10:0 8 AM CDT 08/06/2025 10:10 AM CDT Abdirashid Andrew MD LAB - CHEMISTRY ORDERABLES Fin al Result Performing Organization Address [facility] Co de Phone Number [facility] [address] [place] [address] * PHOSPHORUS BLOOD (08/06/2025 10:08 AM CDT) Phosphorus 2.8 2.1 - 4.3 mg/dL [facility] Comment: Test Performed at: [employer] [place] [address] [place] [address] KERA JUSTICE MD 08/06/2025 10:0 8 AM CDT 08/06/2025 10:10 AM CDT Abdirashid Andrew MD LAB - CHEMISTRY ORDERABLES Fin al Result [facility] [address] [place] [address] from Last 3 Months Insurance MEDICARE [facility] MEDICARE ANTHEM Care Teams Remote Medical Coder Relationship Specialty Start Date End Date Cesario Wilkinson MD [address] [place] [phone] PCP - General 01/08/19 Mitchel Gustafson MD [address] [place] [address] Neurological Surgery 05/19/20 Cale Walden MD [address] [place] [address] Radiation Oncology 05/19/20
--- OUTSIDE RECORDS SUMMARY | 2025-09-08 10:57 | XMS_ITS | Encounter Summary ---
Author Organization [facility] Address [address] [facility] [place] [address] Care Team Providers Care Coat Tailor Name Role Phone Cesario Wilkinson MD Primary Care Provider Mitchel Gustafson MD Unavailable Cale Walden MD Unavailable [phone] Encounter Details Date Type Department Care Team (Late st Contact Info) Description 02/13/2024 Telephone [facility] - Neurology [facility] [facility], [place] [address] Janie Wilson APRN-BOOM SUPERVISOR [address] [place] [address] [place] [address] Social History Tobacco Use Types [...] on file Legal Sex Male 5:23 PM LEARNING AND DEVELOPMENT INTERN Gender Identity Not on file Sexual Orientation [...] st Contact Info) Description 10/02/2025 9:30 AM LEARNING AND DEVELOPMENT INTERN Office Visit [facility] - Neurology [address] [facility], [place] [phone] Janie Wilson APRN-BOOM SUPERVISOR [address] [place] [address] [place] [phone] 02/17/2026 9:45 AM CDT Appointment [facility] [address] [place] [phone] Abdirashid Andrew MD [address] [place] [address] 2[address] [place] [address] 02/17/2026 11:00 AM CDT Office Visit [facility] - GI [address] [place] [address], [place] [phone] Abdirashid Andrew MD [address] [place] [address] 2L [place] [address] 06/29/2026 1:00 PM CDT Appointment [facility] RAD ONC [address] [place] [address] Cale Walden MD [address] [place] [address] 06/29/2026 1:00 PM CDT Appointment [facility] [address] [place] [address] Mitchel Gustafson MD [address] [place] [address] 2[address] [place] [address] documented as of this encounter Goals Goal [...] on filedocumented in this encounter Care Teams Coat Tailor Relationship Specialty Start Date End Date Cesario Wilkinson MD [address] [place] [phone] PCP - General 01/08/19 Mitchel Gustafson MD [address] [place] [address] Neurological Surgery 05/19/20 Cale Walden MD [address] [place] [address] Radiation Oncology 05/19/20 documented as of this encounter
== END 2025-09-08 09:42 | disposition home or self-care (01) ==
LOC: ANHCARD 09:42
PROVIDERS: PCP Family Medicine; Visit Provider Family Medicine
DX: R93.1 Abnormal findings on diagnostic imaging of heart and coronary circulation (principal); R01.1 Cardiac murmur, unspecified; I10 Essential (primary) hypertension
CPT/HCPCS: 93306

== ENCOUNTER 2025-10-13 09:53 | Outpatient (CLI) | payer MEDICARE, SELFPAY ==
--- OUTSIDE RECORDS SUMMARY | 2025-10-13 10:18 | XMS_ITS | Clinical Summary ---
Author Organization [facility] Address [address] [facility] [place] [address] Care Team Providers Care Aviation Safety Equipment Technician Name Role Phone Cesario Wilkinson MD Primary Care Provider Mitchel Gustafson MD Unavailable [phone] Cale Walden MD Unavailable [phone] Source Comments [facility],non-owned Affiliates and Associated Physician Practices is amultiple site organization consisting of ambulatory clinics and hospital sitesin [place], [place], [place] and [place]. This disclosure is being madepursuant to the Care Everywhere program and may not contain all information available regarding this patient. Last updated 18.[facility] Allergies No known active allergies Medications * [...] once daily 90 tablet 3 5 Active losartan (Cozaar) 25 MG tablet Take 1 (one) tablet by mouth once daily 5 Active oxyBUTYnin CR 24hr (Ditropan-XL) 5 MG tablet Take 1 (one) tablet by mouth once daily 5 Active gabapentin (Neurontin) 400 MG capsuleIndicati ons:Trigeminal neuropathy Take 1 (one) capsule by mouth 4 times daily 960 capsule 3 5 Active OXcarbazepine (Trileptal) 300 MG tabletIndicatio ns:Trigeminal neuropathy Take 1 (one) tablet by mouth 3 times daily 270 tablet 3 5 Active gabapentin (Neurontin) 400 MG capsuleIndicati ons:Trigeminal neuropathy TAKE 1 CAPSULE BY MOUTH FOUR TIMES DAILY 960 capsule 3 5 10/02/20 25 Discontinu ed(Reorder ) OXcarbazepine (Trileptal) 300 MG tabletIndicatio ns:Trigeminal neuropathy TAKE 1 TABLET BY MOUTH THREE TIMES DAILY 270 tablet 3 5 10/02/20 Discontinu ed(Reorder ) Active Problems Problem Noted Date Diagnosed Date [...] mass 05/03/2022 07/13/2022 Cirrhosis of liver 08/31/2015 Overview (01/15/2018): 06/02/14 CT: cysts and hemangioma, [...] Encounters Date Type Department Care Team Description 10/02/2025 9:30 AM PLASTER MOLD MAKER Office Visit [facility] - Neurology [address] [place] [phone] Janie Wilson APRN-SHORT ORDER COOK Trigeminal neuropathy (Primary Dx) 10/02/2025 Travel 09/05/2025 Refill [facility] - Neurology [address] [place] [phone] Janie Wilson APRN-SHORT ORDER COOK Refill Request 08/12/2025 11:00 AM CDT Office Visit [facility] - GI [address] [place] [phone] Abdirashid Andrew MD 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) (Primary Dx); Secondary esophageal varices without bleeding (HCC); Gastroesophageal reflux disease without esophagitis; Encounter for screening for other viral diseases 08/12/2025 9:30 AM CDT - 08/12/2025 11:59 PM CDT Hospital Encounter [facility] [address] [place] [address] Abdirashid Andrew MD Discharge Disposition: Home or Self Care 08/12/2025 Travel 08/05/2025 Orders Only [facility] - GI [address] [facility], [place] [address] Abdirashid Andrew MD from Last 3 Months Immunizations Immunization Administration [...] on file Legal Sex Male 5:23 PM PLASTER MOLD MAKER Gender Identity Not on file Sexual Orientation Not on file Last Filed Vital Signs Vital Sign Reading Time Taken Comments Blood Pressure 120/65 10/02/2025 9:25 AM PLASTER MOLD MAKER Pulse 55 10/02/2025 9:25 AM PLASTER MOLD MAKER Temperature 36.5 C (97.7 F) 08/12/2025 11:06 AM CDT Respiratory Rate 18 06/30/2025 1:25 PM CDT Oxygen Saturation 97% 10/02/2025 9:25 AM PLASTER MOLD MAKER Inhaled Oxygen Concentration - - Weight 84.8 kg (187 lb) 10/02/2025 9:25 AM PLASTER MOLD MAKER Height 180.3 cm (5' 11) 10/02/2025 9:25 AM PLASTER MOLD MAKER Body Mass Index 26.08 10/02/2025 9:25 AM PLASTER MOLD MAKER Plan of Treatment Upcoming Encounters Date Type Department Care Team (Late st Contact Info) Description 02/17/2026 9:45 AM CDT Appointment [facility] [address] [place] [address] Abdirashid Andrew MD [address] [place] [address] [address] [place] [address] 02/17/2026 11:00 AM CDT Office Visit [facility] - GI [address] [place] [address], [place] [phone] Abdirashid Andrew MD [address] [place] [address] [address] [place] [address] 03/02/2026 3:00 PM CDT Office Visit [facility] - Neurology [address] [place] [address], [place] [phone] Janie Wilson, RADIOLOGY ORDERLY-SHORT ORDER COOK [address] [place] [address] 06/29/2026 1:00 PM CDT Appointment [facility] [address] [place], [place] [phone] Cale Walden MD [address] [place] [phone] 06/29/2026 1:00 PM CDT Appointment [facility] [address] [place], [place] [phone] Mitchel Gustafson MD [address] DIV OF NEUROSURGERY [place], [place] [phone] Health Maintenance Due Date Last Done Comments [...] DATE/TIME OF EXAM: 08/12/2025 10:32 AM, LOCATION [facility] INDICATION: B18.1: Chronic hepatitis B without delta [...] LIMITED, DATE/TIME OF EXAM: 0:32 AM, LOCATION [facility] INDICATION: B18.1: Chronic hepatitis B without delta [...] B Virus Surface Antigen Quantitative <0.05 IU/mL [facility] Comment: REFERENCE RANGE: <0.05 IU/mL The HBsAg [...] treatment. For additional information, please refer to http://education.[employer]/faq/ZRP437 (This link is being provided for informational/ educational purposes only.) Test Performed at: [facility] [address] [place] [address] GABY RAMOS MD,PHD,RODOLFO 08/06/2025 10:0 8 AM CDT 08/06/2025 10:10 AM CDT Abdirashid Andrew MD LAB - CHEMISTRY ORDERABLES Fin al Result Performing Organization Address [facility] de Phone Number [facility] [address] [place] [address] * MICROALB/CREAT RATIO URINE RANDOM PANEL (08/06/2025 [...] within a diagnostic category. Test Performed at: [facility] [address] [place] [address] KERA JUSTICE MD 08/06/2025 10:0 8 AM CDT 08/06/2025 10:10 AM CDT Abdirashid Andrew MD LAB - URINE CHEMISTRY ORDERABL ES Final Result Performing Organization Address [facility] de Phone Number [facility] [address] [place] [address] * ALPHA FETOPROTEIN BLOOD TUMOR MARKER (08/06/2025 10:08 AM CDT) Alpha-Fetoprotei n Tumor Marker 4.1 <6.1 ng/mL [facility] Comment: This test was performed using the Princess Edilberto chemiluminescent method. Values obtained from different assay methods cannot be used interchangeably. AFP levels, regardless of value, should not be interpreted as absolute evidence of the presence or absence of disease. Test Performed at: [facility] [address] [address] ASIA AGARWAL 08/06/2025 10:0 8 AM CDT 08/06/2025 10:10 AM CDT Abdirashid Andrew MD LAB - CHEMISTRY ORDERABLES [facility] al Result [facility] [address] [place] [address] * (ABNORMAL) COMPREHENSIVE METABOLIC PANEL (08/06/2025 10:08 [...] 46 U/L [facility] Comment: Test Performed at: [facility] [id number] [place] [address] KERA JUSTICE MD 08/06/2025 10:0 8 AM CDT 08/06/2025 10:10 AM CDT Abdirashid Andrew MD LAB - CHEMISTRY ORDERABLES Fin al Result Performing Organization Address City/[facility]/ZIP Co de Phone Number [facility] [address] [place] [address] * PHOSPHORUS BLOOD (08/06/2025 10:08 AM CDT) Phosphorus 2.8 2.1 - 4.3 mg/dL [facility] Comment: Test Performed at: [facility] [place] [address] [place] [address] KERA JUSTICE MD 08/06/2025 10:0 8 AM CDT 08/06/2025 10:10 AM CDT On license of [facility] Quan Andrew MD LAB - CHEMISTRY ORDERABLES Fin al Result Performing Organization Address [facility] Co de Phone Number [facility] [address] [place] [address] from Last 3 Months Insurance MEDICARE [facility] MEDICARE [facility] Care Teams Aviation Safety Equipment Technician Relationship Specialty Start Date End Date Cesario Wilkinson MD [address] [place] [address] PCP - General 01/08/19 Mitchel Gustafson MD [address] [place] [address] Neurological Surgery 05/19/20 Cale Walden MD [address] [place] [address] Radiation Oncology 05/19/20
--- OUTSIDE RECORDS SUMMARY | 2025-10-13 10:18 | XMS_ITS | Encounter Summary ---
Author Organization [facility] Address [address] [place] [address] Care Team Providers Care Youtuber Name Role Phone Cesario Wilkinson MD Primary Care Provider Mitchel Gustafson MD Unavailable [phone] Cale Walden MD Unavailable [phone] Reason for Visit * Reason Onset Date Comments Pre-op Instructions 02/24/2025 Encounter Details Date Type Department Care Team (Late st Contact Info) Description 02/24/2025 Telephone [facility] [address] [place] [address] Ho Buitrago RN Pre-op Instructions [...] on file Legal Sex Male 5:23 PM OFFICE ADMIN Gender Identity Not on file Sexual Orientation [...] PM CDT Patient instructed to report to Joseph rojo at 0600 for scheduled 0730 appointment, NPO after midnight, must have responsible adult present for transportation following procedure. documented in this encounter Plan of Treatment Upcoming Encounters Date Type Department Care Team (Late st Contact Info) Description 02/17/2026 9:45 AM CDT Appointment [facility] [address] [place] [address] Abdirashid Andrew MD [address] [place] [address] [address] [place] [address] 02/17/2026 11:00 AM CDT Office Visit [facility] - GI [address] [place] [address], [place] [address] Abdirashid Andrew MD [address] [place] [address] [address] [place] [address] 03/02/2026 3:00 PM CDT Office Visit [facility] - Neurology [address] [place] [address], [place] [phone] Katie José LuisCHACORTA hernandez-SALES ENABLEMENT MANAGER [address] [place] [address] [address] [place] [phone] 06/29/2026 1:00 PM CDT Appointment [facility] [address] [place] [address] Cale Walden MD [address] [place] [address] 06/29/2026 1:00 PM CDT Appointment [facility] [address] [place] [address] Mitchel Gustafson MD [address] [place] [address] [address] [place] [address] documented as of this encounter Goals Goal [...] on filedocumented in this encounter Care Teams Youtuber Relationship Specialty Start Date End Date Cesario Wilkinson MD [address] [place] [address] PCP - General 01/08/19 Mitchel Gustafson MD [address] [place] [address] Neurological Surgery 05/19/20 Cale Walden MD [address] [place] [address] Radiation Oncology 05/19/20 documented as of this encounter
--- OUTSIDE RECORDS SUMMARY | 2025-10-13 10:18 | XMS_ITS | Encounter Summary ---
Author Organization [facility] Address [address] [facility] [place] [address] Care Team Providers Care Stakeholder Manager Name Role Phone Cesario Wilkinson MD Primary Care Provider Mitchel Gustafson MD Unavailable Cale Walden MD Unavailable [phone] Encounter Details Date Type Department Care Team (Late st Contact Info) Description 02/13/2024 Telephone [facility] - Neurology [facility] [facility], [facility] [place] [address] Janie Wilson APRN-SPECIMEN PREPARATION ASSISTANT [address] [place] [address] [place] [address] Social History Tobacco Use Types [...] on file Legal Sex Male 5:23 PM CUSHION MAKER HAND Gender Identity Not on file Sexual Orientation [...] Info) Description 02/17/2026 9:45 AM CDT Appointment [facility] [address] [place] [phone] Abdirashid Andrew MD [address] [place] [address] [place] [address] 02/17/2026 11:00 AM CDT Office Visit [facility] - GI [address] [place] [address], [facility] [place] [phone] Abdirashid Andrew MD [address] [place] [address] [address] [place] [address] 03/02/2026 3:00 PM CDT Office Visit [facility] - Neurology [address] [place] [address], [place] [phone] Janie Wilson APRN-SPECIMEN PREPARATION ASSISTANT [address] [place] [address] 1L [place] [phone] 06/29/2026 1:00 PM CDT Appointment [facility] [address] [place] [address] Cale Walden MD [address] [place] [address] 06/29/2026 1:00 PM CDT Appointment [facility] [address] [place] [address] Mitchel Gustafson MD [address] [place] [address] [address] [place] [address] documented as of this encounter Goals Goal [...] on filedocumented in this encounter Care Teams Stakeholder Manager Relationship Specialty Start Date End Date Cesario Wilkinson MD [address] [place] [phone] PCP - General 01/08/19 Mitchel Gustafson MD [address] [place] [phone] Neurological Surgery 05/19/20 Cale Walden MD [address] [place] [address] Radiation Oncology 05/19/20 documented as of this encounter
--- OUTSIDE RECORDS SUMMARY | 2025-10-13 10:18 | XMS_ITS | Clinical Summary ---
Author Organization [facility] Address [address] [facility] [address] [place] [address] Phone Care Team Providers Care Natural Resource Officer Name Role Phone Tim F[place] MD Primary Care Provider [phone] Allergies No known active allergies Medications polyethylene [...] Recently Relevant to Health Maintenance Insurance MEDICARE [facility] Care Teams Natural Resource Officer Relationship Specialty Start Date End Date Tim F[place] MD [address] [place] [address] PCP - General Family Medicine 11/30/16
[2025-10-13 13:51] LABS: Anion Gap 4 mmol/L (4-12); Blood Urea Nitrogen 12 mg/dL (9-20); Calcium 9.2 mg/dL (8.4-10.2); Carbon Dioxide 29 mmol/L (22-30); Chloride 105 mmol/L (98-107); Estimated Glomerular Filt Rate > 60; Glucose 283 mg/dL (65-110); Potassium 4.2 mmol/L (3.4-5.0); Sodium 138 mmol/L (137-145)
== END 2025-10-13 09:54 | disposition home or self-care (01) ==
LOC: ANHGOSHLAB 09:55
PROVIDERS: PCP Family Medicine; Visit Provider Family Medicine
DX: E11.9 Type 2 diabetes mellitus without complications (principal); Z79.899 Other long term (current) drug therapy
CPT/HCPCS: 36415; 80048